=== PATIENT | male | born 1960 | race Caucasian/White ===

== ENCOUNTER 2016-08-26 16:14 | Inpatient (IN) | payer MEDICAID ==
--- NOTE | 2016-08-26 16:51 | ED Physician Chart ---
Chief Complaint/HPI - Patient Information Date Seen:: 08/26/16 Time Seen:: 16:45 Chief Complaint:: PEG tube dislodged History of Present Illness:: location: abdomen quality: PEG tube dislodged severity: moderate duration: one day context: pt with inability to feed himself and swallow due to chronic condition. SNF staff report pts, PEG tube came out some time earlier today, exact time not documented. pt with no complaint, but also with no fluid access as he cannot take po food and fluids. no pain complaint. pt is baseline non verbal, awake, alert. currently is at baseline. mod factors: none assoc s/s: none hx from medic and Dr. Almaraz Allergies:: Allergies Allergy/AdvReac Type Severity Reaction Status Date / Time No Known Allergies Allergy Verified 08/26/16 16:28 Vitals:: Vital Signs - 8 hr 08/26/16 16:14 Temp 97.4 F HR 81 RR 16 BP 96/68 O2 Sat % 96 Historian:: EMS, Other (Dr. Almaraz) Review:: Nurse's Note Reviewed, EMS run form Reviewed Review of Systems - Review of Systems General/Constitutional: No fever, No edema Skin: No rash ENT: No nasal drainage Neck: No stiffness Cardio Vascular: No edema Pulmonary: Cough (intermittent nonproductive cough), No wheezing GI: No vomiting G/U: No hematuria Hematopoietic: No bruising Allergic/Immuno: No angioedema Neurological: No seizure Past Medical History - Past Medical History Past Medical History: PUD/GERD, Thyroid disorder, Other (dementia, unspecified encephalopathy) Family History: None Social History: Non Smoker, No Alcohol, No Drug Use, Single, Care Facility Surgical History: PEG/GTube Psychiatricy History: Other Medication: Reviewed Family Medical History - Family Member Mother History Unknown: Yes Physical Exam - Physical Examination General/Constitutional: Awake, Well-developed, well-nourished, Alert, No distress, Non-toxic appearing, Ambulatory Head: Atraumatic Eyes: Lids, conjuctiva normal, PERRL, EOMI Skin: Nl inspection, No ecchymosis, Well hydrated ENMT: External ears, nose nl, Nasal exam nl, Lips, teeth, gums nl Neck: Nontender, Full ROM w/o pain Respiratory: Nl effort/Exclusion, Clear to Auscultation, No Wheeze/Rhonchi/Rales Cardio Vascular: RRR, No murmur, gallop, rubs, NL S1 S2 GI: No tenderness/rebounding/guarding, Normal BS's (PEG tube site is intact, clean and dry, tube is dislodged), Nondistended : No CVA tenderness Extremities: No tenderness or effusion, Full ROM, normal strength in all extremities, No edema, Normal digits & nails Neuro/Psych: Normal sensory exam, Normal motor strength, No focal deficits Misc: normal gait, Normal back, No paraspinal tenderness ED Septic Shock - . Is Septic Shock (SBP<90, OR Lactate>4 mmol\L) present?: No - <6hrs of presentation: Vital Signs: Vital Signs - 8 hr 08/26/16 16:14 Temp 97.4 F HR 81 RR 16 BP 96/68 O2 Sat % 96 Reassessment (Disposition) - Reassessment Reassessment:: MDM: stable encephalopathy patient with dislodged PEG, need replacement. in meantime will start maintenance IV fluids and admit for procedure tomorrow . ER Course: pt stable while in ER. no acute decompensation. Reassessment Condition:: Unchanged - Diagnosis Diagnosis:: dislodged PEG tube in encephalopathic patient - Patient Disposition Discharge/Transfer:: Acute Care w/in this hosp Admitted to:: Med/Surg Admitting Medical Physician:: Dustin Almaraz Condition at Disposition:: Stable
[2016-08-26 17:20] LABS: % BASOPHILS 2.3 % (0.0-2.0); % EOSINOPHILS 0.6 % (0.0-5.0); % LYMPHOCYTES 14.4 % (20.0-50.0); % MONOCYTES 4.7 % (2.0-10.0); HEMATOCRIT 39.6 % (39.0-49.0); HEMOGLOBIN 13.2 gm/dL (13.2-17.3); MEAN CELL VOLUME 89.1 fl (80-99); MEAN CORPUSCULAR HEMOGLOBIN 29.8 pg (26.0-30.0); MEAN CORPUSCULAR HGB CONC 33.4 pg (28.0-36.0); MEAN PLATELET VOLUME 8.7 fl; NEUTROPHILE ABSOLUTE 5.5 Th/cmm (1.8-8.0); PLATELET COUNT 290 Th/cmm (150-400); RED BLOOD COUNT 4.45 Mil/cmm (4.30-5.70); RED CELL DISTRIBUTION WIDTH 12.2 % (11.5-20.0)
[2016-08-26 17:42] LABS: ALB/GLOB RATIO 0.8 (1.0-1.8); ALKALINE PHOSPHATASE 79 U/L (34-104); ANION GAP 11.2 (7.0-16.0); BILIRUBIN,TOTAL 0.3 mg/dL (0.3-1.0); BUN - UREA NITROGEN 24 mg/dL (7-25); BUN/CREATININE RATIO 26.7; CALCIUM SERUM 9.6 mg/dL (8.6-10.3); CARBON DIOXIDE 29.3 mEq/L (21.0-31.0); CHLORIDE 98 mEq/L (98-107); CREATININE - SERUM 0.9 mg/dL (0.7-1.3); GLUCOSE 91 mg/dL (70-105); POTASSIUM SERUM 3.5 mEq/L (3.5-5.1); SGOT 25 U/L (13-39); SGPT/ALT 22 U/L (7-52); SODIUM SERUM 135 mEq/L (136-145)
[2016-08-26 17:47] LABS: URINE BILIRUBIN NEGATIVE (NEGATIVE); URINE BLOOD SMALL (NEGATIVE); URINE COLOR YELLOW; URINE GLUCOSE (UA) NEGATIVE (NEGATIVE); URINE KETONE NEGATIVE (NEGATIVE)
[2016-08-26 17:48] LABS: URINE PROTEIN TRACE mg/dL (NEGATIVE)
[2016-08-26 17:49] LABS: URINE BACTERIA NONE SEEN /hpf (NONE SEEN); URINE EPITHELIAL CELLS NONE SEEN /lpf (FEW); URINE WBC NONE SEEN /hpf (0-5)
[2016-08-26 17:50] LABS: INR 1.09 (0.5-1.4); PROTHROMBIN TIME (TEST) 10.9 SECONDS (9.5-11.5)
[2016-08-26] MEDS ORDERED: D5-0.9%NS 1,000 ML IV SCH (20:33)
[2016-08-27 04:49] VITALS: BP 93/63
--- NOTE | 2016-08-27 08:35 | General Progress Note ---
Subjective - Review of Systems Service Date: 08/27/16 Subjective: Patient non verbal Objective - Results Result Diagrams: 08/26/16 17:00 08/26/16 17:00 Recent Labs: Laboratory Last Values WBC 7.0 Th/cmm (4.8-10.8) 08/26/16 17:00 RBC 4.45 Mil/cmm (4.30-5.70) 08/26/16 17:00 Hgb 13.2 gm/dL (13.2-17.3) 08/26/16 17:00 Hct 39.6 % (39.0-49.0) 08/26/16 17:00 MCV 89.1 fl (80-99) 08/26/16 17:00 MCH 29.8 pg (26.0-30.0) 08/26/16 17:00 MCHC Differential 33.4 pg (28.0-36.0) 08/26/16 17:00 RDW 12.2 % (11.5-20.0) 08/26/16 17:00 Plt Count 290 Th/cmm (150-400) 08/26/16 17:00 MPV 8.7 fl 08/26/16 17:00 Neutrophils % 78.0 % (40.0-80.0) 08/26/16 17:00 Lymphocytes % 14.4 % (20.0-50.0) L 08/26/16 17:00 Monocytes % 4.7 % (2.0-10.0) 08/26/16 17:00 Eosinophils % 0.6 % (0.0-5.0) 08/26/16 17: Basophils % 2.3 % (0.0-2.0) H 08/26/16 17:00 PT 10.9 SECONDS (9.5-11.5) 08/26/16 17:00 INR 1.09 (0.5-1.4) 08/26/16 17:00 Sodium 135 mEq/L (136-145) L 08/26/16 17:00 Potassium 3.5 mEq/L (3.5-5.1) 08/26/16 17:00 Chloride 98 mEq/L (98-107) 08/26/16 17:00 Carbon Dioxide 29.3 mEq/L (21.0-31.0) 08/26/16 17:00 Anion Gap 11.2 (7.0-16.0) 08/26/16 17:00 BUN 24 mg/dL (7-25) 08/26/16 17:00 Creatinine 0.9 mg/dL (0.7-1.3) 08/26/16 17:00 Est GFR ( Amer) > 60.0 ml/min 08/26/16 17:00 Est GFR (Non-Af Amer) > 60.0 ml/min 08/26/16 17:00 BUN/Creatinine Ratio 26.7 08/26/16 17:00 Glucose 91 mg/dL (70-105) 08/26/16 17:00 Calcium 9.6 mg/dL (8.6-10.3) 08/26/16 17:00 Total Bilirubin 0.3 mg/dL (0.3-1.0) 08/26/16 17:00 AST 25 U/L (13-39) 08/26/16 17:00 ALT 22 U/L (7-52) 08/26/16 17:00 Alkaline Phosphatase 79 U/L (34-104) 08/26/16 17:00 Total Protein 8.3 gm/dL (6.0-8.3) 08/26/16 17:00 Albumin 3.8 gm/dL (4.2-5.5) L 08/26/16 17:00 Globulin 4.5 gm/dL 08/26/16 17:00 Albumin/Globulin Ratio 0.8 (1.0-1.8) L 08/26/16 17:00 Urine Source CLEAN C 08/26/16 17:32 Urine Color YELLOW 08/26/16 17:32 Urine Clarity CLEAR (CLEAR) 08/26/16 17:32 Urine pH 7.0 08/26/16 17:32 Ur Specific [place] 1.020 (1.005-1.030) 08/26/16 17:32 Urine Protein TRACE mg/dL (NEGATIVE) 08/26/16 17:32 Urine Glucose (UA) NEGATIVE mg/dL (NEGATIVE) 08/26/16 17:32 Urine Ketones NEGATIVE mg/dL (NEGATIVE) 08/26/16 17:32 Urine Blood SMALL (NEGATIVE) H 08/26/16 17:32 Urine Nitrate NEGATIVE (NEGATIVE) 01/17/17 17:32 Urine Bilirubin NEGATIVE (NEGATIVE) 08/26/16 17:32 Urine Urobilinogen 2.0 E.U./dL (0.2 - 1.0) 08/26/16 17:32 Ur Leukocyte Esterase NEGATIVE (NEGATIVE) 08/26/16 17:32 Urine RBC 5-10 /hpf (0-5) H 08/26/16 17:32 Urine WBC NONE SEEN /hpf (0-5) 08/26/16 17:32 Ur Epithelial Cells NONE SEEN /lpf (FEW) 08/26/16 17:32 Urine Bacteria NONE SEEN /hpf (NONE SEEN) 08/26/16 17:32 - Physical Exam Vitals and I&O: Vital Signs Temp 98.6 F 08/27/16 04:00 Pulse 75 08/27/16 04:00 Resp 19 08/27/16 04:00 BP 93/63 08/27/16 04:49 Pulse Ox 96 08/27/16 04:00 Active Medications: Current Medications Acetaminophen (Tylenol) 650 mg GT Q4HR PRN PRN Reason: mild pain or temp >100 Stop: 10/25/16 20:28 Bisacodyl (Dulcolax 10 Mg Supp) 10 mg RC DAILY PRN PRN Reason: Constipation Stop: 10/25/16 20:28 Dextrose/Sodium Chloride (D5-0.9%Ns) 1,000 mls @ 75 mls/hr IV .[id number] [facility] Stop: 10/25/16 20:32 Last Admin: 08/27/16 01:44 Dose: 75 mls/hr Levetiracetam (Keppra) 500 mg PO Q12HR [facility] Stop: 10/25/16 20:59 Last Admin: 08/27/16 01:45 Dose: Not Given Levothyroxine Sodium (Synthroid) 0.0125 mg GT QDAC [facility] Stop: 10/26/16 07:29 Metoclopramide HCl (Reglan) 5 mg GT Q12HR [facility] Stop: 10/25/16 20:59 Last Admin: 08/27/16 01:49 Dose: Not Given Pantoprazole Sodium (Protonix) 40 mg GT DAILY [facility] Stop: 10/26/16 08:59 General: Alert, Other (Confused) HEENT: Atraumatic Neck: Supple Cardiovascular: Regular rate Lungs: Clear to auscultation Abdomen: Bowel sounds, Soft, Other (Open wound where oeg was placed) Extremities: Other (No edema) Neurological: Other (Non ambulatoty) Skin: Other (Warm and dry) Psych/Mental Status: Other (Confused, not oriented) Assessment/Plan - Assessment Assessment: Patient is awake, calm, confused. Dx: PEG disloged, Hypothyroidism, Schizophrenia, MR, Dysphagia - Plan Plan: PEG will be replace today. He will continue with SNF meds.
[2016-08-27 09:04] LABS: % BASOPHILS 0.7 % (0.0-2.0); % EOSINOPHILS 0.6 % (0.0-5.0); % LYMPHOCYTES 27.6 % (20.0-50.0); % MONOCYTES 5.8 % (2.0-10.0); % NEUTROPHILS 65.3 % (40.0-80.0); HEMATOCRIT 40.5 % (39.0-49.0); MEAN CELL VOLUME 88.4 fl (80-99); MEAN CORPUSCULAR HEMOGLOBIN 30.6 pg (26.0-30.0); MEAN CORPUSCULAR HGB CONC 34.6 pg (28.0-36.0); MEAN PLATELET VOLUME 9.3 fl; NEUTROPHILE ABSOLUTE 5.1 Th/cmm (1.8-8.0); PLATELET COUNT 280 Th/cmm (150-400); RED BLOOD COUNT 4.59 Mil/cmm (4.30-5.70); RED CELL DISTRIBUTION WIDTH 12.6 % (11.5-20.0); WHITE BLOOD COUNT 7.7 Th/cmm (4.8-10.8)
[2016-08-27 09:09] LABS: ALB/GLOB RATIO 0.9 (1.0-1.8); ALKALINE PHOSPHATASE 90 U/L (34-104); ANION GAP 9.4 (7.0-16.0); BILIRUBIN,TOTAL 0.5 mg/dL (0.3-1.0); BUN - UREA NITROGEN 21 mg/dL (7-25); BUN/CREATININE RATIO 23.3; CALCIUM SERUM 10.3 mg/dL (8.6-10.3); CARBON DIOXIDE 29.4 mEq/L (21.0-31.0); CHLORIDE 99 mEq/L (98-107); CREATININE - SERUM 0.9 mg/dL (0.7-1.3); GLUCOSE 99 mg/dL (70-105); POTASSIUM SERUM 3.8 mEq/L (3.5-5.1); SGOT 23 U/L (13-39); SGPT/ALT 23 U/L (7-52); SODIUM SERUM 134 mEq/L (136-145)
[2016-08-27] MEDS: Pantoprazole 40 mg/Packet GT SCH (09:25)
[2016-08-27] MEDS: Levothyroxine 0.125 Mg Tab GT SCH (09:25)
--- NOTE | 2016-08-27 09:52 | Diagnostic Imaging Report ---
CHEST X-RAY: AP view INDICATION: Shortness of breath COMPARISON: None FINDINGS: Chronic changes are seen with no focal consolidation pleural effusions. Multiple old left rib fractures are noted. Heart size is normal. IMPRESSION: Chronic lung changes with no focal consolidation identified. No evidence of pneumothorax. Multiple old left rib fractures.
--- NOTE | 2016-08-27 10:55 | Diagnostic Imaging Report ---
Upper GI with Gastrografin HISTORY: G-tube confirmation COMPARISON: None FINDINGS: Solution Professional view demonstrates moderate stool throughout the colon. A percutaneous feeding tube is noted. The second image demonstrates contrast opacification of the stomach. IMPRESSION: Intraluminal confirmation of patient's percutaneous gastric feeding tube.
--- NOTE | 2016-08-27 11:27 | History & Physical ---
CHIEF COMPLAINT: PEG tube dislodged. HISTORY OF PRESENT ILLNESS: This is the case of a 56-year-old white male who I [facility]. I received a call from the [facility] stating the patient pulled out his G-tube, reason why patient was sent to Emergency Room to try to put back the PEG tube. PAST MEDICAL HISTORY: The patient has past medical history of hypothyroidism, schizophrenia, mental retardation, dysphagia and general muscle weakness when unstable gait. SOCIAL HISTORY: The patient is a permanent resident of a [facility]. FAMILY HISTORY: Unremarkable. ALLERGIES: No known allergies. PAST SURGICAL HISTORY: PEG replacement. REVIEW OF SYSTEMS: Information was not obtained secondary to the patient's mental condition. PHYSICAL EXAMINATION: GENERAL: Does reveal a fairly nourished and developed white male, awake, alert, confused, not following verbal commands. HEENT: Head is normocephalic and atraumatic. Eyes: Pupils reactive to light. Fundus not examined at this time. Nose: No evidence of nasal obstruction. Ears: No evidence of any discharge. Mouth: Fairly ____. LUNGS: Bilateral air entry. No wheezing. No crackles. HEART: Regular rhythm. ABDOMEN: Soft, nontender. Bowel sounds present. There is a scar where PEG tube was pulled up. The incision is closing up. EXTREMITIES: Limited movement of all extremities. The patient is bed bound. NEUROLOGICAL: The patient is awake, alert, confused, not oriented. Neurological examination was not completed secondary to the patient's mental condition. IMPRESSION: 1. PEG dislodged. 2. Hypothyroidism. 3. Schizophrenia. 4. Mental retardation. 5. Dysphagia. PLAN: 1. The patient will be admitted in the medical surgical floor. 2. Continue with [facility] medications. 3. Consult with GI. 4. IV D5 normal saline. 5. CBC and CMP at a.m. JOB# [id number]
[2016-08-27] MEDS ORDERED: Diatrizoate Meglumine/Diatri 30 mL Sol PO ONE (13:11)
--- NOTE | 2016-08-27 14:53 | Operative Report ---
INPATIENT GASTROINTESTINAL PROCEDURE NOTE NAME OF PROCEDURE: G-tube change. REFERRING PHYSICIAN: Dr. Almaraz. REASON FOR PROCEDURE: Malfunctioning G-tube, dysphagia. PREOPERATIVE DIAGNOSES: Malfunctioning G-tube, dysphagia. POSTOPERATIVE DIAGNOSIS: New 20-Lithuanian gastrostomy tube placed. DESCRIPTION OF PROCEDURE: The patient was placed on his back. The old G-tube site was identified and had a Mc tube in place. The balloon was not inflated. The Mc tube was then removed by pulling it out. A new 20-Lithuanian gastrostomy tube was lubricated and inserted through the gastrocutaneous fistula. Internal balloon was inflated with 20 mL of sterile saline. Outer flange was secured in position. Procedure was then completed. COMPLICATIONS: None. FINDINGS: New 20-Lithuanian gastrostomy tube placed. RECOMMENDATIONS: 1. KUB with Gastrografin to confirm placement. 2. If it is in stomach, may begin using it. 3. Place an abdominal binder to protect the G-tube. Thank you for allowing me to participate. Please call me if you have any questions. JOB# [id number]
--- NOTE | 2016-08-27 22:03 | Consultation ---
INPATIENT GASTROINTESTINAL CONSULTATION REFERRING PHYSICIAN: Dustin Almaraz M.D. REASON FOR CONSULTATION: Malfunctioning G-tube. HISTORY OF PRESENT ILLNESS: A 56-year-old male who came from into the hospital with apparently a G-tube that had come out. The patient is otherwise a poor historian, unable to give any meaningful history. PAST MEDICAL HISTORY: Thyroid disease, dementia, peptic ulcer disease, GERD, dysphagia. PAST SURGICAL HISTORY: PEG tube placement. FAMILY HISTORY: Noncontributory. SOCIAL HISTORY: Resident of a care facility. ALLERGIES: None. CURRENT MEDICATIONS: Tylenol, Dulcolax, Keppra, Synthroid, Reglan, Protonix. REVIEW OF SYSTEMS: Unobtainable. PHYSICAL EXAMINATION: VITAL SIGNS: Temperature 98.6, breathing 19, pulse of 75, blood pressure 93/63, satting 96%. GENERAL: In no apparent distress. EYES: Anicteric, normal conjunctivae. HEENT: Normocephalic, atraumatic. Moist mucous membranes. NECK: Soft, supple. CHEST: Clear, normal effort. CARDIOVASCULAR: Regular rate and rhythm. ABDOMEN: Soft, nontender, nondistended. SKIN: Warm, dry. EXTREMITIES: Reveal no cyanosis. LABORATORY DATA: White count 7.7, hemoglobin 14, platelets of 280. IMPRESSION: This is a 56-year-old male with a gastrostomy tube that had fallen out. The patient has a malfunctioning gastrostomy tube and underlying dysphagia. We will need to have it replaced. PLAN: G-tube to be replaced at bedside. Thank you for allowing me to participate. Please call me if you have any questions. JOB# [id number]
[2016-08-28] MEDS: Levothyroxine 0.125 Mg Tab GT SCH (06:47)
[2016-08-28 07:32] LABS: % BASOPHILS 0.5 % (0.0-2.0); % LYMPHOCYTES 40.3 % (20.0-50.0); % MONOCYTES 6.5 % (2.0-10.0); % NEUTROPHILS 50.7 % (40.0-80.0); HEMATOCRIT 37.6 % (39.0-49.0); HEMOGLOBIN 12.4 gm/dL (13.2-17.3); MEAN CELL VOLUME 89.3 fl (80-99); MEAN CORPUSCULAR HEMOGLOBIN 29.5 pg (26.0-30.0); MEAN PLATELET VOLUME 8.7 fl; NEUTROPHILE ABSOLUTE 2.3 Th/cmm (1.8-8.0); PLATELET COUNT 277 Th/cmm (150-400); RED BLOOD COUNT 4.21 Mil/cmm (4.30-5.70); RED CELL DISTRIBUTION WIDTH 12.5 % (11.5-20.0)
[2016-08-28 07:51] LABS: ALB/GLOB RATIO 0.9 (1.0-1.8); ALKALINE PHOSPHATASE 73 U/L (34-104); ANION GAP 7.5 (7.0-16.0); BILIRUBIN,TOTAL 0.3 mg/dL (0.3-1.0); BUN - UREA NITROGEN 20 mg/dL (7-25); CALCIUM SERUM 9.4 mg/dL (8.6-10.3); CARBON DIOXIDE 30.1 mEq/L (21.0-31.0); CHLORIDE 104 mEq/L (98-107); CREATININE - SERUM 0.8 mg/dL (0.7-1.3); GLUCOSE 95 mg/dL (70-105); POTASSIUM SERUM 3.6 mEq/L (3.5-5.1); SGOT 23 U/L (13-39); SGPT/ALT 20 U/L (7-52); SODIUM SERUM 138 mEq/L (136-145)
--- NOTE | 2016-08-28 07:54 | General Progress Note ---
Subjective - Review of Systems Service Date: 08/28/16 Subjective: Patient non verbal Objective - Results Result Diagrams: 08/27/16 08:18 08/27/16 08:18 Recent Labs: Laboratory Last Values WBC 7.7 Th/cmm (4.8-10.8) 08/27/16 08:18 RBC 4.59 Mil/cmm (4.30-5.70) 08/27/16 08:18 Hgb 14.0 gm/dL (13.2-17.3) 08/27/16 08:18 Hct 40.5 % (39.0-49.0) 08/27/16 08:18 MCV 88.4 fl (80-99) 08/27/16 08:18 MCH 30.6 pg (26.0-30.0) H 08/27/16 08:18 MCHC Differential 34.6 pg (28.0-36.0) 08/27/16 08:18 RDW 12.6 % (11.5-20.0) 08/27/16 08:18 Plt Count 280 Th/cmm (150-400) 08/27/16 08:18 MPV 9.3 fl 08/27/16 08:18 Neutrophils % 65.3 % (40.0-80.0) 08/27/16 08:18 Lymphocytes % 27.6 % (20.0-50.0) 08/27/16 08:18 Monocytes % 5.8 % (2.0-10.0) 08/27/16 08:18 Eosinophils % 0.6 % (0.0-5.0) 08/27/16 08:18 Basophils % 0.7 % (0.0-2.0) 08/27/16 08:18 PT 10.9 SECONDS (9.5-11.5) 08/26/16 17:00 INR 1.09 (0.5-1.4) 08/26/16 17:00 Sodium 134 mEq/L (136-145) L 08/27/16 08:18 Potassium 3.8 mEq/L (3.5-5.1) 08/27/16 08:18 Chloride 99 mEq/L (98-107) 08/27/16 08:18 Carbon Dioxide 29.4 mEq/L (21.0-31.0) 08/27/16 08:18 Anion Gap 9.4 (7.0-16.0) 08/27/16 08:18 BUN 21 mg/dL (7-25) 08/27/16 08:18 Creatinine 0.9 mg/dL (0.7-1.3) 08/27/16 08:18 Est GFR ( Amer) > 60.0 ml/min 08/27/16 08:18 Est GFR (Non-Af Amer) > 60.0 ml/min 08/27/16 08:18 BUN/Creatinine Ratio 23.3 08/27/16 08:18 Glucose 99 mg/dL (70-105) 08/27/16 08:18 Calcium 10.3 mg/dL (8.6-10.3) 08/27/16 08:18 Total Bilirubin 0.5 mg/dL (0.3-1.0) 08/27/16 08:18 AST 23 U/L (13-39) 08/27/16 08:18 ALT 23 U/L (7-52) 08/27/16 08:18 Alkaline Phosphatase 90 U/L (34-104) 08/27/16 08:18 Total Protein 9.0 gm/dL (6.0-8.3) H 08/27/16 08:18 Albumin 4.2 gm/dL (4.2-5.5) 08/27/16 08:18 Globulin 4.8 gm/dL 08/27/16 08:18 Albumin/Globulin Ratio 0.9 (1.0-1.8) L 08/27/16 08:18 TSH 2.67 uIU/ml (0.34-5.60) 08/27/16 08:18 Urine Source CLEAN C 08/26/16 17:32 Urine Color YELLOW 08/26/16 17:32 Urine Clarity CLEAR (CLEAR) 08/26/16 17:32 Urine pH 7.0 08/26/16 17:32 Ur Specific [place] 1.020 (1.005-1.030) 08/26/16 17:32 Urine Protein TRACE mg/dL (NEGATIVE) 08/26/16 17:32 Urine Glucose (UA) NEGATIVE mg/dL (NEGATIVE) 08/26/16 17:32 Urine Ketones NEGATIVE mg/dL (NEGATIVE) 08/26/16 17:32 Urine Blood SMALL (NEGATIVE) H 08/26/16 17:32 Urine Nitrate NEGATIVE (NEGATIVE) 08/26/16 17:32 Urine Bilirubin NEGATIVE (NEGATIVE) 08/26/16 17:32 Urine Urobilinogen 2.0 E.U./dL (0.2 - 1.0) 08/26/16 17:32 Ur Leukocyte Esterase NEGATIVE (NEGATIVE) 08/26/16 17:32 Urine RBC 5-10 /hpf (0-5) H 08/26/16 17:32 Urine WBC NONE SEEN /hpf (0-5) 08/26/16 17:32 Ur Epithelial Cells NONE SEEN /lpf (FEW) 08/26/16 17:32 Urine Bacteria NONE SEEN /hpf (NONE SEEN) 08/26/16 17:32 - Physical Exam Vitals and I&O: Vital Signs Temp 97.7 F 08/28/16 04:00 Pulse 56 08/28/16 04:00 Resp 19 08/28/16 04:00 BP 90/61 08/28/16 04:00 Pulse Ox 98 08/28/16 04:00 Intake & Output 08/27/16 08/28/16 08/28/16 18:59 06:59 18:59 Intake Total 380 Balance 380 Intake: Tube Feeding 280 Other 100 Other: # Voids 4 Active Medications: Current Medications Acetaminophen (Tylenol) 650 mg GT Q4HR PRN PRN Reason: mild pain or temp >100 Stop: 10/25/16 20:28 Bisacodyl (Dulcolax 10 Mg Supp) 10 mg RC DAILY PRN PRN Reason: Constipation Stop: 10/25/16 20:28 Dextrose/Sodium Chloride (D5-0.9%Ns) 1,000 mls @ 75 mls/hr IV .[id number] [facility] Stop: 10/25/16 20:32 Last Admin: 08/27/16 01:44 Dose: 75 mls/hr Levetiracetam (Keppra) 500 mg PO Q12HR [facility] Stop: 10/25/16 20:59 Last Admin: 08/27/16 21:54 Dose: 500 mg Levothyroxine Sodium (Synthroid) 0.0125 mg GT QDAC [facility] Stop: 10/26/16 07:29 Last Admin: 08/28/16 06:47 Dose: 0.0125 mg Metoclopramide HCl (Reglan) 5 mg GT Q12HR [facility] Stop: 10/25/16 20:59 Last Admin: 08/27/16 21:54 Dose: 5 mg Pantoprazole Sodium (Protonix) 40 mg GT DAILY [facility] Stop: 10/26/16 08:59 Last Admin: 08/27/16 09:25 Dose: Not Given General: Alert, Other (Confused) HEENT: Atraumatic Neck: Supple Cardiovascular: Regular rate Lungs: Clear to auscultation Abdomen: Bowel sounds, Soft, Other (PEG in place) Neurological: Normal gait Skin: Other (Warm and dry) Psych/Mental Status: Other (Confused) - Procedures Procedures: Procedures Procedure Code Date CHANGE FEEDING DEVICE IN UP INTEST TRACT, REWORKER APPROACH [id number] 08/26/16 CHANGE GASTROSTOMY TUBE 23440 08/26/16 Assessment/Plan - Assessment Assessment: Patient is awake, calm, confused. Dx: PEG disloged, Hypothyroidism, Schizophrenia, MR, Dysphagia - Plan Plan: PEG was replace. Patient will be discharge
[2016-08-28 08:05] LABS: WHITE BLOOD COUNT 4.5 Th/cmm (4.8-10.8)
[2016-08-28] MEDS: Pantoprazole 40 mg/Packet GT SCH (09:19)
--- NOTE | 2016-08-28 18:30 | Discharge Summary ---
CHIEF COMPLAINT: PEG tube dislodged. HISTORY OF PRESENT ILLNESS: This is the case of a 56-year-old white male who was sent from alf to ER secondary to the patient pulled out his PEG tube. HOSPITAL COURSE AND TREATMENT: Then, this patient was admitted in the Medical Surgical Floor. He was started on IV normal saline. He was continued with alf medications and consult with GI was done. The following day of the admission, the patient's PEG tube was replaced and it is functioning well, reason why the decision to discharge the patient to alf was done. At the moment of the discharge, the patient was awake, alert, confused, not oriented with PEG functioning well. INSIDE SALES DIRECTOR IN THIS CASE: Dr. Ramu Park, GI. DISPOSITION: The patient is sent back to alf to continue treatment with primary care physician. DIAGNOSES: 1. Percutaneous endoscopic gastrostomy tube dislodged. 2. Hypothyroidism. 3. Schizophrenia. 4. Mental retardation. 5. Dysphagia. JOB# [id number]
== END 2016-08-28 12:30 | DRG 252 ==
LOC: ER 16:14 → MSI 18:39
PROVIDERS: ADMIT General Practice; ATTEND General Practice
PROC: 0D20XUZ Change Feeding Device in Upper Intestinal Tract, External Approach (ICD-10-PCS; principal; 2016-08-26)
DX: K94.23 Gastrostomy malfunction (principal); G93.40 Encephalopathy, unspecified; R13.10 Dysphagia, unspecified; F20.9 Schizophrenia, unspecified; E03.9 Hypothyroidism, unspecified; F79 Unspecified intellectual disabilities; K21.9 Gastro-esophageal reflux disease without esophagitis; Y84.8 Other medical procedures as the cause of abnormal reaction of the patient, or of later complication, without mention of misadventure at the time of the procedure; I34.0 Nonrheumatic mitral (valve) insufficiency
CPT/HCPCS: 36415-UA; 71010-TC; 80053-TC; 81001-TC; 84443-TC; 85025-TC; 85610-TC; 93005; J2060; J7042; Z7610

== ENCOUNTER 2019-02-23 12:47 | Inpatient (IN) | payer MEDICAID ==
[2019-02-23] MEDS ORDERED: Sodium Chloride 0.9% 1,000 ML IV ONE (12:53)
--- NOTE | 2019-02-23 12:58 | ED Physician Chart ---
ED Chief Complaint/HPI - Patient Information Date Seen:: 02/23/19 Time Seen:: 12:45 Chief Complaint:: G-Tube Dysfunction History of Present Illness:: onset x 6 hours of g-tube dysfunction; no report of trauma, H/As, neck pain, C/P , SOB, Abd. Pain, A/N/V/D/C, fever, chills, bleeding, or urinary s/s Allergies:: Allergies Allergy/AdvReac Type Severity Reaction Status Date / Time No Known Allergies Allergy Verified 02/23/19 12:52 Historian:: Patient, EMS Review:: Nurse's Note Reviewed, Old Chart Reviewed, EMS run form Reviewed ED Review of Systems - Review of Systems General/Constitutional: No fever, No chills, No weight loss, No weakness, No diaphoresis, No edema, No loss of appetite Skin: No skin lesions, No rash, No bruising Head: No headache, No light-headedness Eyes: No loss of vision, No pain, No diplopia ENT: No earache, No nasal drainage, No sore throat, No tinnitus Neck: No neck pain, No swelling, No thyromegaly, No stiffness, No mass noted Cardio Vascular: No chest pain, No palpitations, No PND, No orthopnea, No edema Pulmonary: No SOB, No cough, No sputum, No wheezing GI: Nausea, Vomiting, Diarrhea, No pain, No melena, No hematochezia, No constipation, No hematemesis G/U: No dysuria, No frequency, No hematuria Musculoskeletal: No bone or joint pain, No back pain, No muscle pain Endocrine: No polyuria, No polydipsia Psychiatric: No prior psych history, No depression, No anxiety, No suicidal ideation, No homicidal ideation, No auditory hallucination, No visual hallucination Hematopoietic: No bruising, No lymphadenopathy Allergic/Immuno: No urticaria, No angioedema Neurological: No syncope, No focal symptoms, No weakness, No paresthesia, No headache, No seizure, No dizziness, Confusion, No vertigo ED Past Medical History - Past Medical History Obtainable: Yes Past Medical History: HTN, PUD/GERD, Thyroid disorder, Dementia Family History: HTN Social History: Non Smoker, No Alcohol, No Drug Use, Single, Care Facility Surgical History: PEG/GTube Psychiatricy History: Dementia Medication: Reviewed Family Medical History - Family Member Mother History Unknown: Yes Ethnicity: Non- Living Status: Still Living Hx Family Cancer: No Hx Family Coronary Artery Disease: No Hx Family Congestive Heart Failure: No Hx Family Hypertension: No Hx Family Stroke: No Hx Family Diabetes: No Hx Family Seizures: No Hx Family Dementia: No Hx Family AIDS: No Hx Family HIV: No Hx Family COPD: No Hx Family Hepatitis: No Hx Family Psychiatric Problems: No Hx Family Tuberculosis: No ED Physical Exam - Physical Examination General/Constitutional: Awake, Well-developed, well-nourished, Alert, No distress, GCS 15, Non-toxic appearing, Ambulatory Head: Atraumatic Eyes: Lids, conjuctiva normal, PERRL, EOMI Skin: Nl inspection, No rash, No skin lesions, No ecchymosis, Well hydrated, No lymphadenopathy ENMT: External ears, nose nl, TM canals nl, Nasal exam nl, Lips, teeth, gums nl , Oropharynx nl, Tonsils nl Neck: Nontender, Full ROM w/o pain, No JVD, No nuchal rigidity, No bruit, No mass, No stridor Respiratory: Nl effort/Exclusion, Clear to Auscultation, No Wheeze/Rhonchi/Rales Cardio Vascular: RRR, No murmur, gallop, rubs, NL S1 S2, Carotid/Femoral/Distal pulses equal bilaterally GI: No tenderness/rebounding/guarding, No organomegaly, No hernia, Normal BS's, Nondistended, No mass/bruits, No McBurney tenderness Other GI comments:: + G-Tube Dysfunction : No CVA tenderness Extremities: No tenderness or effusion, Full ROM, normal strength in all extremities, No edema, Normal digits & nails Neuro/Psych: Alert/oriented, DTR's symmetric, Normal sensory exam, Normal motor strength, Judgement/insight normal, Mood normal, Normal gait, No focal deficits Misc: Normal back, No paraspinal tenderness ED Labs/Radiology/EKG Results - Lab Results Comments:: Reviewed - Radiology Results Comments:: + Portion of G-Tube Foreign Body in the Stomach ED Septic Shock - . Is Septic Shock (SBP<90, OR Lactate>4 mmol\L) present?: No ED Reassessment (Disposition) - Reassessment Reassessment Condition:: Improved - Diagnosis Diagnosis:: G-Tube Dysfunction; Hyponatremia; Hypoalbuminemia; G-Tube Foreign Body in Stomach - Aftercare/Follow up Instructions Aftercare/Follow-Up Instructions:: Counseled pt regarding lab results/diagnosis & need follow up, Counseled pt & family regarding lab results/diagnosis & need follow up - Patient Disposition Discharge/Transfer:: Acute Care w/in this hosp Accepting Physician:: Dr. Almaraz Time Called:: 1400 Time Responded:: 14:00 Admitted to:: Med/Surg Spoke to:: Dr. Almaraz Admitting Medical Physician:: Dr. Almaraz Condition at Disposition:: Stable, Improved
[2019-02-23 13:15] LABS: % BASOPHILS 0.8 % (0.0-2.0); % EOSINOPHILS 1.8 % (0.0-5.0); % MONOCYTES 4.5 % (2.0-10.0); % NEUTROPHILS 77.9 % (40.0-80.0); BASOPHILE ABSOLUTE 0.1 Th/cumm (0-0.2); EOSINOPHILE ABSOLUTE 0.2 Th/cmm (0.1-0.4); HEMATOCRIT 44.5 % (41.0-60); HEMOGLOBIN 14.6 gm/dL (12-16); LYMPHOCYTE ABSOLUTE 1.4 Th/cmm (1.5-3.0); MEAN CELL VOLUME 88.3 fl (80-99); MEAN CORPUSCULAR HEMOGLOBIN 28.9 pg (26.0-30.0); MEAN CORPUSCULAR HGB CONC 32.8 pg (28.0-36.0); MONOCYTE ABSOLUTE 0.4 Th/cmm (0.3-1.0); NEUTROPHILE ABSOLUTE 6.9 Th/cmm (1.8-8.0); PLATELET COUNT 282 Th/cmm (150-400); RED BLOOD COUNT 5.04 Mil/cmm (4.30-5.70); RED CELL DISTRIBUTION WIDTH 12.9 % (11.5-20.0)
[2019-02-23 13:32] LABS: ALB/GLOB RATIO 1.2 (1.0-1.8); ALBUMIN 4.1 gm/dL (4.2-5.5); ALKALINE PHOSPHATASE 71 U/L (34-104); AMYLASE SERUM 48 U/L (29-103); ANION GAP 12.2 (7.0-16.0); BILIRUBIN,TOTAL 0.3 mg/dL (0.3-1.0); BUN - UREA NITROGEN 17 mg/dL (7-25); CALCIUM SERUM 9.5 mg/dL (8.6-10.3); CARBON DIOXIDE 25.3 mEq/L (21.0-31.0); CHLORIDE 99 mEq/L (98-107); CREATININE - SERUM 0.7 mg/dL (0.7-1.3); GFR AFRICAN-AMERICAN > 60.0 ml/min (>90); GFR NON AFRICAN-AMERICAN > 60.0 ml/min; GLUCOSE 102 mg/dL (70-105); LIPASE 19 U/L (11-82); POTASSIUM SERUM 4.5 mEq/L (3.5-5.1); SGOT 16 U/L (13-39); SGPT/ALT 17 U/L (7-52); SODIUM SERUM 132 mEq/L (136-145); TOTAL PROTEIN,SERUM 7.4 gm/dL (6.0-8.3)
--- NOTE | 2019-02-23 14:29 | Diagnostic Imaging Report ---
CT abdomen and pelvis without intravenous contrast Indication: G-tube dysfunction,, foreign body Comparison: None, Technique: Axial images were obtained from the lung bases to the bilateral proximal femurs without IV contrast. Coronal reconstructions were made. total DLP: 468, CTDI8.3 FINDINGS: Hypoventilatory changes of the lungs are noted with bibasal consolidative changes. Exam is limited due to motion and body habitus. Assessment of the solid organs also limited due to lack of IV contrast. There is a moderate-sized hiatal hernia. No focal hepatic, splenic lesions. Pancreas Atrophy is seen with no focal lesions. No focal adrenal lesions. Punctate nonobstructive bilateral renal stones are noted measuring up to 3 mm. There is urinary bladder wall thickening evidence small stones seen along the dependent aspects the largest on the right side measuring up to 5 mm. There is copious amount of stool throughout the colon. No evidence of appendicitis. There is visualization of a portion of patient's G-tube in the stomach. No free fluid or free air. Degenerative changes spine are noted with scoliosis. Chronic bilateral femoral neck fractures are seen with marked displacement on the right side. IMPRESSION: Portion of patient's G-tube foreign body is seen within the stomach. The remaining portion extending to the percutaneous aspect is not seen. This may have been due to prior dislodgment. GI or surgical consultation is recommended if there is need for removal. Moderate sized hiatal hernia. Copious stool noted. Nonobstructive bilateral renal calculi Small urinary bladder stones. Urinary bladder wall thickening which related to chronic inflammatory process. Bibasilar passive atelectatic and consolidated changes Chronic bilateral femoral neck fractures. Results were dedicated to the ER following exam.
[2019-02-23] MEDS: D5-0.9%NS 1,000 ML IV SCH (16:30)
[2019-02-24] MEDS: D5-0.9%NS 1,000 ML IV SCH ×2 (07:31→18:17)
--- NOTE | 2019-02-24 09:04 | History and Physical ---
History of Present Illness - HPI Chief Complaint: G-tube broke HPI: Doctor tryed to change G-Tube and it broke and part stayed in the stomach, reason why he was send to ER. Vital Signs: Last Vital Signs Temp 97.9 F 02/24/19 08:00 Pulse 68 02/24/19 08:00 Resp 18 02/24/19 08:00 BP 104/69 02/24/19 08:00 Pulse Ox 97 02/24/19 08:00 Past Medical History Cardiovascular: Report: CAD, HTN Pulmonary: Report: No Pertinent Hx [employer]: Report: Dementia GI: Report: GERD Psych: Report: Psychosis Musculoskeletal: Report: Muscle Atrophy Rheumatologic: Report: No pertinent Hx Infectious Disease: Report: No Pertinent Hx Renal/: Report: No Pertinent Hx Endocrine: Report: Hypothyroidism Dermatology: Report: No Pertinent Hx - Past Surgical History Past Surgical History: No pertinent Hx Family Medical History - Family Member Mother History Unknown: Yes Ethnicity: Non- Living Status: Still Living Hx Family Cancer: No Hx Family Coronary Artery Disease: No Hx Family Congestive Heart Failure: No Hx Family Hypertension: No Hx Family Stroke: No Hx Family Diabetes: No Hx Family Seizures: No Hx Family Dementia: No Hx Family AIDS: No Hx Family HIV: No Hx Family COPD: No Hx Family Hepatitis: No Hx Family Psychiatric Problems: No Hx Family Tuberculosis: No Social History Smoke: No Alcohol: None Drugs: None Lives: Care Home Domestic Violence: Negative - Medications Home Medications: Home Medication Medication Instructions Recorded Type Acetaminophen [Tylenol] 650 mg GT Q4HR PRN 08/26/16 History Bisacodyl [Dulcolax 10 Mg Supp] 10 mg RC DAILY PRN 08/26/16 History Levetiracetam 500 mg GT Q12H 08/26/16 History Levothyroxine [Synthroid] 100 mcg GT QDAC 08/26/16 History Metoclopramide [Reglan] 5 mg GT Q12H 08/26/16 History Pantoprazole [Protonix] 40 mg GT DAILY 08/26/16 History Zonisamide 100 mg GT DAILY 08/26/16 History Famotidine [Pepcid] 20 mg GT DAILY 02/23/19 History Ferrous Sulfate [Ferosul] 330 mg GT TID 02/23/19 History - Allergies Allergies/Adverse Reactions: Allergies Allergy/AdvReac Type Severity Reaction Status Date / Time No Known Allergies Allergy Verified 02/23/19 12:52 Review of Systems - Review of Systems Constitutional: Report: No Significant Eyes: Report: No Significant ENT: Report: No Significant Respiratory: Report: No Significant Cardiovascular: Report: No Significant Gastrointestinal: Report: No Significant Genitourinary: Report: No Significant Musculoskeletal: Report: No Significant Skin: Report: No Significant Neurological: Report: Weakness Physical Exam - Physical Exam HEENT: Report: Ears Nose Throat within normal limits Neck: Report: Within normal limits Cardiovascular Systems: Report: Regular, Rate and Rhythm Respiratory: Report: Breath Sounds are within normal limits Abdomen: Report: Non-tender to palpation, Other (Stoma present and clean) Back: Report: Inspection of back is within normal limits. Extremities: Report: Non-tender to palpation. Skin: Report: Color of skin is within normal limits, Warm, Dry Neuro/Psych: Report: Disoriented to name time or place - Lab Results All Lab Results last 24 hours: Laboratory Results - last 24 hr 02/23/19 02/23/19 13:10 13:10 WBC 9.0 RBC 5.04 Hgb 14.6 Hct 44.5 MCV 88.3 MCH 28.9 MCHC Differential 32.8 RDW 12.9 Plt Count 282 MPV 8.6 Neutrophils % 77.9 Lymphocytes % 15.0 L Monocytes % 4.5 Eosinophils % 1.8 Basophils % 0.8 Sodium 132 L Potassium 4.5 Chloride 99 Carbon Dioxide 25.3 Anion Gap 12.2 BUN 17 Creatinine 0.7 Est GFR ( Amer) > 60.0 Est GFR (Non-Af Amer) > 60.0 BUN/Creatinine Ratio 24.3 Glucose 102 Calcium 9.5 Total Bilirubin 0.3 AST 16 ALT 17 Alkaline Phosphatase 71 Total Protein 7.4 Albumin 4.1 L Globulin 3.3 Albumin/Globulin Ratio 1.2 Amylase 48 Lipase 19 - Assessment Assessment: Patient is sleeping but arousable, in no acute distress. Dx: G-tube malfunction , HTN, GERD, Hypothyroidism, Dementia. - Plan Plan: Patient in IV NS/D5, NPO, awaiting G-tube replacement.
--- NOTE | 2019-02-24 13:52 | Diagnostic Imaging Report ---
KUB single view HISTORY: Dislodged G-tube COMPARISON: CT abdomen and pelvis on 02/23/2019 FINDINGS: Dislodged G-tube portion is seen in the stomach as seen on recent CT exam. Moderate stool is noted. The bowel gas pattern is overall nonspecific. Partially visualized old femoral neck fractures are noted. IMPRESSION: Dislodged G-tube portion seen within the stomach as seen on recent CT exam. Moderate stool noted.
[2019-02-24] MEDS ORDERED: Non-Formulary Item 1 EA (Ferrous Sulfate [Ferosul] 330 MG) GT SCH (14:00)
[2019-02-24] MEDS: Ferrous Sulfate 300 MG/5 ML UDC PO SCH ×2 (14:57→20:32)
[2019-02-25 05:23] LABS: HEMATOCRIT 42.6 % (41.0-60); MEAN CELL VOLUME 88.3 fl (80-99); MEAN CORPUSCULAR HEMOGLOBIN 29.1 pg (26.0-30.0); MEAN CORPUSCULAR HGB CONC 32.9 pg (28.0-36.0); PLATELET COUNT 242 Th/cmm (150-400); RED BLOOD COUNT 4.82 Mil/cmm (4.30-5.70); WHITE BLOOD COUNT 11.3 Th/cmm (4.8-10.8)
[2019-02-25] MEDS: Levothyroxine 0.1 Mg Tab GT SCH (06:38)
[2019-02-25] MEDS: D5-0.9%NS 1,000 ML IV SCH ×2 (06:43→18:58)
[2019-02-25 07:04] LABS: INR 1.01 (0.5-1.4)
[2019-02-25] MEDS ORDERED: Lidocaine 2% Gel 5 mL TP ONE (07:45)
[2019-02-25] MEDS ORDERED: Propofol 10 mg/mL 20mL Vial **SURGERY USE ONLY IV ONE (07:45)
--- NOTE | 2019-02-25 08:49 | General Progress Note ---
Subjective - Review of Systems Service Date: 02/25/19 Subjective: Patient non verbal Objective - Results Result Diagrams: 02/25/19 05:18 02/23/19 13:10 Recent Labs: Laboratory Last Values WBC 11.3 Th/cmm (4.8-10.8) H 02/25/19 05:18 RBC 4.82 Mil/cmm (4.30-5.70) 02/25/19 05:18 Hgb 14.0 gm/dL (12-16) 02/25/19 05:18 Hct 42.6 % (41.0-60) 02/25/19 05:18 MCV 88.3 fl (80-99) 02/25/19 05:18 MCH 29.1 pg (26.0-30.0) 02/25/19 05:18 MCHC Differential 32.9 pg (28.0-36.0) 02/25/19 05:18 RDW 13.0 % (11.5-20.0) 02/25/19 05:18 Plt Count 242 Th/cmm (150-400) 02/25/19 05:18 MPV 8.4 fl 02/25/19 05:18 Neutrophils % 80.7 % (40.0-80.0) H 02/25/19 05:18 Lymphocytes % 11.9 % (20.0-50.0) L 02/25/19 05:18 Monocytes % 5.3 % (2.0-10.0) 02/25/19 05:18 Eosinophils % 1.3 % (0.0-5.0) 02/25/19 05:18 Basophils % 0.8 % (0.0-2.0) 02/25/19 05:18 PT 10.5 SECONDS (9.5-11.5) 02/25/19 05:18 INR 1.01 (0.5-1.4) 02/25/19 05:18 Sodium 132 mEq/L (136-145) L 02/23/19 13:10 Potassium 4.5 mEq/L (3.5-5.1) 02/23/19 13:10 Chloride 99 mEq/L (98-107) 02/23/19 13:10 Carbon Dioxide 25.3 mEq/L (21.0-31.0) 02/23/19 13:10 Anion Gap 12.2 (7.0-16.0) 02/23/19 13:10 BUN 17 mg/dL (7-25) 02/23/19 13:10 Creatinine 0.7 mg/dL (0.7-1.3) 02/23/19 13:10 Est GFR ( Amer) > 60.0 ml/min (>90) 02/23/19 13:10 Est GFR (Non-Af Amer) > 60.0 ml/min 02/23/19 13:10 BUN/Creatinine Ratio 24.3 02/23/19 13:10 Glucose 102 mg/dL (70-105) 02/23/19 13:10 POC Glucose 119 MG/DL (70 - 105) H 02/25/19 07:50 Calcium 9.5 mg/dL (8.6-10.3) 02/23/19 13:10 Total Bilirubin 0.3 mg/dL (0.3-1.0) 02/23/19 13:10 AST 16 U/L (13-39) 02/23/19 13:10 ALT 17 U/L (7-52) 02/23/19 13:10 Alkaline Phosphatase 71 U/L (34-104) 02/23/19 13:10 Total Protein 7.4 gm/dL (6.0-8.3) 02/23/19 13:10 Albumin 4.1 gm/dL (4.2-5.5) L 02/23/19 13:10 Globulin 3.3 gm/dL 02/23/19 13:10 Albumin/Globulin Ratio 1.2 (1.0-1.8) 02/23/19 13:10 Amylase 48 U/L (29-103) 02/23/19 13:10 Lipase 19 U/L (11-82) 02/23/19 13:10 - Physical Exam Vitals and I&O: Vital Signs Temp 98.7 F 02/25/19 03:54 Pulse 78 02/25/19 03:54 Resp 18 02/25/19 03:54 BP 113/72 02/25/19 03:54 Pulse Ox 96 02/25/19 03:54 Intake & Output 02/24/19 02/25/19 02/25/19 18:59 06:59 18:59 Intake Total 861.333 994.667 Balance 861.333 994.667 Weight (lbs) 63.503 kg 63.503 kg Intake: Intake, IV Amount 861.333 994.667 D5-0.9%Ns 1,000 ml @ 80 861.333 994.667 mls/hr IV .[id number] [facility] Rx #:[id number] Oral 0 Other: # Voids 4 2 # Bowel Movements 0 Weight Source Bedscale Bedscale Active Medications: Current Medications Acetaminophen (Tylenol) 650 mg GT Q4HR PRN PRN Reason: mild pain or temp >100 Stop: 04/25/19 09:06 Bisacodyl (Dulcolax 10 Mg Supp) 10 mg RC DAILY PRN PRN Reason: Constipation Stop: 04/25/19 09:06 Ferrous Sulfate (Iron) 300 mg PO TID [facility] Stop: 04/25/19 13:59 Last Admin: 02/24/19 20:32 Dose: Not Given Dextrose/Sodium Chloride (D5-0.9%Ns) 1,000 mls @ 80 mls/hr IV .[id number] [facility] Stop: 04/24/19 16:04 Last Admin: 02/25/19 06:43 Dose: 80 mls/hr Cefazolin Sodium 1 gm/ Sodium (Chloride) 50 mls @ 100 mls/hr IV Q8HR [facility] Stop: 04/26/19 08:59 Levothyroxine Sodium (Synthroid) 0.1 mg GT QDAC [facility] Stop: 04/26/19 07:29 Last Admin: 02/25/19 06:38 Dose: Not Given Pantoprazole Sodium (Protonix) 40 mg IVP QDAC [facility] Stop: 04/26/19 08:44 General: Alert, No acute distress HEENT: Atraumatic, PERRLA Neck: Supple Cardiovascular: Regular rate Lungs: Clear to auscultation Abdomen: Bowel sounds, Soft, Other (G tube in place) Extremities: Other (No edema) Neurological: Normal gait Skin: Other (Warm and dry) Psych/Mental Status: Other (Confused) - Procedures Procedures: Procedures Procedure Code Date CHANGE FEEDING DEVICE IN UP INTEST TRACT, SERVER ENGINEER APPROACH [id number] 08/26/16 CHANGE GASTROSTOMY TUBE 36009 08/26/16 Assessment/Plan - Assessment Assessment: Patient is sleeping but arousable, in no acute distress. Dx: G-tube malfunction , HTN, GERD, Hypothyroidism, Dementia. - Plan Plan: Patient in IV NS/D5, NPO, G-tube was not placed due to esophagitis and constricture of esophagus, consult with surgery recommended to place to PEG. GI will ordered a abdominal CT to a better evaluation of esophagitis and esophageal constricted. Nutritional Asmnt/Malnutr-PDOC - Dietary Evaluation Malnutrition Findings (Please click <Entered> for more info): Nutritional Asmnt/Malnutrition Start: 02/24/19 16: 30 Text: Status: Complete Freq: Protocol: Document 02/24/19 16:31 ANTOINETTE (Rec: 02/24/19 16:34 ANTOINETTE [email or web address]) Nutritional Asmnt/Malnutrition Patient General Information Nutritional Screening High Risk Diagnosis G TUBE MALFUNCTION Pertinent Medical Hx/Surgical Hx GERD, DEMENTIA, PSYCHOSIS, CAD , HTN, HYPOTHYROIDISM, MUSCLE ATROPHY Subjective Information PT IS A 58 YEAR OLD MALE ADMITTED ON 02/23 D/T BROKEN G- TUBE. PEG WAS PULLED OUT BY PY AT [facility]. PT IS WAITING ON A GI CONSULT AND G-TUBE REPLACEMENT. HT: 52 WT: 124 LB (56.36 KG) BMI: 22.68 (NORMAL) GI: WNL, SOFT, LARGE BM: NOT NOTED I/O: NOT NOTED SKIN: WNL, ROLLY, DRY, INTACT AMINA: 13 DIET ORDER: NPO ESTIMATED ENERGY NEEDS: (ADULT , CBW) 1526-9546 KCALS (25-30 KCALS/ KG) 45-51 G PRO (0.8-0.9 G/KG) 4116-3540 ML (25-30 ML/KG) Current Diet Order/ Nutrition Support NPO Pertinent Medications DULCOLAX (PRN), D5-0.9% NS, PEPCID, FERROUS SULFATE, SYNTHROID Pertinent Labs 02/23: NA 132, ALB 4.1 Nutritional Hx/Data Height 1.57 m Height (Calculated Centimeters) 157.5 Current Weight (lbs) 56.245 kg Weight (Calculated Kilograms) 56.2 Weight (Calculated Grams) 32851.5 [place] Body Weight 118 LB (53.64KG) % [place] Body Weight 105 Body Mass Index (BMI) 22.6 Weight Status Approriate GI Symptoms Last BM NOT NOTED Skin Integrity/Comment: WNL, ROLLY, DRY, INTACT AMINA: 13 Estimated Nutritional Goals BEE in Kcals: Using Current wt Calories/Kcals/Kg 25-30 Kcals Calculated 6247-4424 Protein: Using Current wt Protein g/k.8-0.9 Protein Calculated 45-51 Fluid: ml 8476-9891 ML (25-30 ML/KG) Nutritional Problem 1. Problem Problem INADEQUATE ENERGY INTAKE Etiology R/T GI CONSULT AND G-TUBE REPLACEMENT Signs/Symptoms: AEB NPO STATUS Malnutrition Related to Morbid Obesity Malnutrition related to morbid obesity No Intervention/Recommendation Comments 1. CONTINUE NPO STATUS MEDICALLY APPROPRIATE. 2. ADVANCE G-TUBE FEEDING ONCE MEDICALLY APPROPRIATE. Expected Outcomes/Goals Expected Outcomes/Goals 1. MONITOR NPO STATUS, WT, NUTRITION RELATED LABS AND SKIN INTEGRITY. 2. F/U HIGH RISK IN 2-3 DAYS, 02/26-02/27
--- NOTE | 2019-02-25 08:52 | Operative Report ---
DATE OF SURGERY: 02/25/2019 NAME OF PROCEDURE: EGD. REFERRING PHYSICIAN: Dr. Almaraz. REASON FOR PROCEDURE: Dysphagia and foreign object in the stomach. CONSENT: Risks, benefits, alternatives, nature, indication, possible outcomes were discussed. Mentioned bleeding, infection, perforation, and disability, cardiopulmonary distress and arrest, missed lesion and cancers, need for further surgery. The patient's agreeing green party provided informed consent. PREOPERATIVE DIAGNOSES: Dysphagia, foreign object in the stomach. POSTOPERATIVE DIAGNOSES: Dysphagia, foreign object in the stomach, esophageal stricture, esophagitis. MEDICATIONS: General anesthesia, Ancef 1 gram. DESCRIPTION OF PROCEDURE: The patient was placed on his back. Upper endoscope advanced from the mouth into the esophagus and a stricture was encountered. It was quite tight, could not see across it, could not traverse with our scope because we could not see the other side, I did not feel that balloon dilation would be safe. There was esophagitis in this area. Scope was slowly withdrawn along with air. COMPLICATIONS: None. FINDINGS: Esophageal stricture at about 31 cm with proximal esophagitis could not traverse the esophageal stricture and balloon dilation could not be done due to being unable to visualize the other side. Biopsy was considered, but due to the erosiveness of the esophagitis and the lack of a visible lesion, biopsy was not performed, also to minimize risk of bleeding or perforation. RECOMMENDATIONS: 1. Surgical evaluation. 2. Chest CT. 3. The patient may need a tertiary evaluation for esophageal dilation. 4. Provided the patient with Protonix. Thank you for allowing me to participate. Please call me if any questions. [facility]# [phone]
[2019-02-25] MEDS: ceFAZolin 1 GM in Sodium Chloride 0.9% 50 ML IV SCH ×3 (09:21→20:33)
[2019-02-25] MEDS: Ferrous Sulfate 300 MG/5 ML UDC PO SCH ×3 (09:31→22:45)
--- NOTE | 2019-02-25 10:31 | Diagnostic Imaging Report ---
CT scan of the chest without intravenous contrast HISTORY: Esophageal stricture, pain Total DLP equals 238 CTDI equals 6.3 Axial sections were obtained from a level above the clavicles down to level below the diaphragm. The heart size is generous. Normal-sized lymph nodes are seen within the mediastinum. Evaluation of hilar and vascular structures limited due to the absence of intravenous contrast. There is generalized thickening of the esophageal wall. There is a large hiatal hernia with the gastric fundus above the diaphragm. Poor delineation and detail of the gastroesophageal junction. Endoscopy would provide for further assessment and evaluation if needed. There is mild pleural thickening within the right and left lower hemithoracic regions. Additional nonspecific pulmonary parenchymal changes noted within the right and left lower lobes. IMPRESSION: 1. Large retrocardiac hiatal hernia with the gastric fundus above the diaphragm. Generalized thickening of the wall of the thoracic esophagus. Poor delineation the gastroesophageal junction. Endoscopic correlation would provide for further assessment if needed. 2. Mild pleural reaction within the right left lower hemithoracic regions along with nonspecific pulmonary parenchymal changes. 3. Incidental note are several punctate nonobstructing left renal calculi.
[2019-02-25] MEDS ORDERED: Probiotic Screen MC PRN (13:08)
--- NOTE | 2019-02-25 20:44 | Consultation ---
DATE OF CONSULTATION: 02/25/2019 INPATIENT GASTROINTESTINAL CONSULTATION REFERRING PHYSICIAN: Dr. Almaraz. REASON FOR CONSULTATION: Dysphagia. HISTORY OF PRESENT ILLNESS: This is a 58-year-old male who was brought to the hospital because he pulled out his G-tube. The patient has dementia and unable to give any meaningful history. Apparently, a CT scan was done and showed the internal portion of the G-tube is dislodged and remains within the stomach. We were asked to see the patient for the replacement of a feeding tube and for the dislodge portion of the G-tube. Again, the patient is a poor historian, unable to give any meaningful history. There have been no complaints or reports by staff of any abdominal pain, nausea, vomiting, GI bleeding or diarrhea. PAST MEDICAL HISTORY: Hypertension, peptic ulcer disease, thyroid disorder, dementia. PAST SURGICAL HISTORY: PEG tube placement. FAMILY HISTORY: Noncontributory. SOCIAL HISTORY: No tobacco, alcohol or IV drug usage. ALLERGIES: None. CURRENT MEDICATIONS: Tylenol, Dulcolax, cefazolin, Pepcid, iron, Synthroid. REVIEW OF SYSTEMS: Unobtainable. PHYSICAL EXAMINATION: VITAL SIGNS: Temperature 98.7, breathing 18, pulse of 78, blood pressure 113/72, satting 96%. GENERAL: In no apparent distress. EYES: Anicteric. Normal conjunctivae. HEENT: Normocephalic, atraumatic. Moist mucous membranes. NECK: Soft, supple. CHEST: Clear. No effort. CARDIOVASCULAR: Regular rate and rhythm. ABDOMEN: Soft, nontender, nondistended with an old scar and a gastrocutaneous fistula site that is closed completely. SKIN: Warm and dry. EXTREMITIES: Reveal no cyanosis. PSYCHOLOGICAL: Awake. LABORATORY DATA: Show white count 9, hemoglobin 14.6 and platelets of 282. INR is 1.01. LFTs are within normal limits. Lipase is within normal limits. CT abdomen and pelvis was reviewed and showed a dislodged portion of the G-tube continue within the stomach, moderate size hiatal hernia. KUB also shows the dislodged portion of the G-tube in the stomach. IMPRESSION: A 58-year-old male with dementia, dysphagia, likely from a central etiology. The patient pulled out his feeding tube and there was a dislodged portion of the G-tube within the stomach seen on both CT and x-ray. Endoscopy is being considered to both reinserting new feeding tube and to remove the dislodged portion of the G-tube remaining in the stomach. PLAN: 1. EGD, PEG. 2. We will need Ancef before the procedure. 3. Coags to be checked. Thank you for allowing me to participate. Please call me if any questions. JOB# [id number]
[2019-02-25 23:24] LABS: BAND NEUTROPHILE 0 % (0-10); BASOPHIL 0 % (0-3); EOSINOPHIL 1 % (0-5); LYMPHOCYTE 12 % (20-50); MONOCYTE 1 % (2-10); NEUTROPHILS 86 % (40-80)
[2019-02-25 23:25] LABS: PLATELET ESTIMATE ADEQUATE (NORMAL)
[2019-02-26] MEDS: ceFAZolin 1 GM in Sodium Chloride 0.9% 50 ML IV SCH ×3 (05:25→20:56)
[2019-02-26] MEDS: D5-0.9%NS 1,000 ML IV SCH ×2 (05:29→13:47)
[2019-02-26 06:16] LABS: ALB/GLOB RATIO 1.3 (1.0-1.8); ALBUMIN 3.4 gm/dL (4.2-5.5); ALKALINE PHOSPHATASE 62 U/L (34-104); ANION GAP 9.4 (7.0-16.0); BILIRUBIN,TOTAL 0.5 mg/dL (0.3-1.0); BUN - UREA NITROGEN 10 mg/dL (7-25); CALCIUM SERUM 8.7 mg/dL (8.6-10.3); CARBON DIOXIDE 22.3 mEq/L (21.0-31.0); CHLORIDE 112 mEq/L (98-107); CREATININE - SERUM 0.7 mg/dL (0.7-1.3); GFR AFRICAN-AMERICAN > 60.0 ml/min (>90); GFR NON AFRICAN-AMERICAN > 60.0 ml/min; GLUCOSE 102 mg/dL (70-105); POTASSIUM SERUM 3.7 mEq/L (3.5-5.1); SGOT 14 U/L (13-39); SGPT/ALT 11 U/L (7-52); SODIUM SERUM 140 mEq/L (136-145)
[2019-02-26 06:28] LABS: % EOSINOPHILS 3.3 % (0.0-5.0); % LYMPHOCYTES 34.4 % (20.0-50.0); % MONOCYTES 9.4 % (2.0-10.0); % NEUTROPHILS 52.9 % (40.0-80.0); EOSINOPHILE ABSOLUTE 0.2 Th/cmm (0.1-0.4); HEMOGLOBIN 12.6 gm/dL (12-16); LYMPHOCYTE ABSOLUTE 2.1 Th/cmm (1.5-3.0); MEAN CELL VOLUME 88.3 fl (80-99); MONOCYTE ABSOLUTE 0.6 Th/cmm (0.3-1.0); NEUTROPHILE ABSOLUTE 3.1 Th/cmm (1.8-8.0); PLATELET COUNT 246 Th/cmm (150-400); RED BLOOD COUNT 4.19 Mil/cmm (4.30-5.70); RED CELL DISTRIBUTION WIDTH 12.8 % (11.5-20.0)
[2019-02-26] MEDS: Levothyroxine 0.1 Mg Tab GT SCH (06:44)
[2019-02-26] MEDS: Ferrous Sulfate 300 MG/5 ML UDC PO SCH ×3 (08:08→20:00)
[2019-02-26] MEDS: Lactobacillus Rhamnosus GG 15 Billion CFU CAP.SPRINK PO SCH (08:09)
--- NOTE | 2019-02-26 09:30 | General Progress Note ---
Subjective - Review of Systems Service Date: 02/26/19 Subjective: Patient non verbal Objective - Results Result Diagrams: 02/26/19 05:40 02/26/19 05:40 Recent Labs: Laboratory Last Values WBC 6.0 Th/cmm (4.8-10.8) 02/26/19 05:40 RBC 4.19 Mil/cmm (4.30-5.70) L 02/26/19 05:40 Hgb 12.6 gm/dL (12-16) 02/26/19 05:40 Hct 37.0 % (41.0-60) L 02/26/19 05:40 MCV 88.3 fl (80-99) 02/26/19 05:40 MCH 30.0 pg (26.0-30.0) 02/26/19 05:40 MCHC Differential 34.0 pg (28.0-36.0) 02/26/19 05:40 RDW 12.8 % (11.5-20.0) 02/26/19 05:40 Plt Count 246 Th/cmm (150-400) 02/26/19 05:40 MPV 9.1 fl 02/26/19 05:40 Add Manual Diff YES 02/25/19 05:18 Neutrophils % 52.9 % (40.0-80.0) 02/26/19 05:40 Band Neutrophils % 0 % (0-10) 02/25/19 05:18 Lymphocytes % 34.4 % (20.0-50.0) 02/26/19 05:40 Monocytes % 9.4 % (2.0-10.0) 02/26/19 05:40 Eosinophils % 3.3 % (0.0-5.0) 02/26/19 05:40 Basophils % 0.0 % (0.0-2.0) 02/26/19 05:40 Neutrophils (Manual) 86 % (40-80) H 02/25/19 05:18 Lymphocytes 12 % (20-50) L 02/25/19 05:18 Monocytes 1 % (2-10) L 02/25/19 05:18 Eosinophils 1 % (0-5) 02/25/19 05:18 Basophils 0 % (0-3) 02/25/19 05:18 Platelet Estimate ADEQUATE (NORMAL) 02/25/19 05:18 PT 10.5 SECONDS (9.5-11.5) 02/25/19 05:18 INR 1.01 (0.5-1.4) 02/25/19 05:18 Sodium 140 mEq/L (136-145) 02/26/19 05:40 Potassium 3.7 mEq/L (3.5-5.1) 02/26/19 05:40 Chloride 112 mEq/L (98-107) H 02/26/19 05:40 Carbon Dioxide 22.3 mEq/L (21.0-31.0) 02/26/19 05:40 Anion Gap 9.4 (7.0-16.0) 02/26/19 05:40 BUN 10 mg/dL (7-25) 02/26/19 05:40 Creatinine 0.7 mg/dL (0.7-1.3) 02/26/19 05:40 Est GFR ( Amer) > 60.0 ml/min (>90) 02/26/19 05:40 Est GFR (Non-Af Amer) > 60.0 ml/min 02/26/19 05:40 BUN/Creatinine Ratio 14.3 02/26/19 05:40 Glucose 102 mg/dL (70-105) 02/26/19 05:40 POC Glucose 119 MG/DL (70 - 105) H 02/25/19 07:50 Calcium 8.7 mg/dL (8.6-10.3) 02/26/19 05:40 Total Bilirubin 0.5 mg/dL (0.3-1.0) 02/26/19 05:40 AST 14 U/L (13-39) 02/26/19 05:40 ALT 11 U/L (7-52) 02/26/19 05:40 Alkaline Phosphatase 62 U/L (34-104) 02/26/19 05:40 Total Protein 6.0 gm/dL (6.0-8.3) 02/26/19 05:40 Albumin 3.4 gm/dL (4.2-5.5) L 02/26/19 05:40 Globulin 2.6 gm/dL 02/26/19 05:40 Albumin/Globulin Ratio 1.3 (1.0-1.8) 02/26/19 05:40 Amylase 48 U/L (29-103) 02/23/19 13:10 Lipase 19 U/L (11-82) 02/23/19 13:10 - Physical Exam Vitals and I&O: Vital Signs Temp 97.3 F 02/26/19 08:00 Pulse 60 02/26/19 08:00 Resp 17 02/26/19 08:00 BP 105/75 02/26/19 08:00 Pulse Ox 91 02/26/19 08:00 Intake & Output 02/25/19 02/26/19 02/26/19 18:59 06:59 18:59 Intake Total 100 1050 Balance 100 1050 Weight (lbs) 63.503 kg Intake: Intake, IV Amount 100 1050 D5-0.9%Ns 1,000 ml @ 100 1000 mls/hr IV .Q10H [facility] Rx#: [id number] ceFAZolin 1 gm In Sodium 100 50 Chloride 0.9% 50 ml @ 100 mls/hr IV Q8HR [facility] Rx#: [id number] Other: # Voids 2 # Bowel Movements 1 Weight Source Bedscale Active Medications: Current Medications Acetaminophen (Tylenol) 650 mg GT Q4HR PRN PRN Reason: mild pain or temp >100 Stop: 04/25/19 09:06 Bisacodyl (Dulcolax 10 Mg Supp) 10 mg RC DAILY PRN PRN Reason: Constipation Stop: 04/25/19 09:06 Ferrous Sulfate (Iron) 300 mg PO TID [facility] Stop: 04/25/19 13:59 Last Admin: 02/26/19 08:08 Dose: Not Given Cefazolin Sodium 1 gm/ Sodium (Chloride) 50 mls @ 100 mls/hr IV Q8HR [facility] Stop: 04/26/19 08:59 Last Admin: 02/26/19 05:25 Dose: 100 mls/hr Dextrose/Sodium Chloride (D5-0.9%Ns) 1,000 mls @ 100 mls/hr IV .Q10H [facility] Stop: 04/26/19 17:59 Last Admin: 02/26/19 05:29 Dose: 100 mls/hr Lactobacillus Rhamnosus (Culturelle 15b) 1 each PO DAILY [facility] Stop: 04/27/19 08:59 Last Admin: 02/26/19 08:09 Dose: Not Given Levothyroxine Sodium (Synthroid) 0.1 mg GT QDAC [facility] Stop: 04/26/19 07:29 Last Admin: 02/26/19 06:44 Dose: Not Given Miscellaneous (Probiotic Screen) 1 ea MC PRN PRN PRN Reason: PROTOCOL Stop: 04/26/19 13:07 Pantoprazole Sodium (Protonix) 40 mg IVP QDAC [facility] Stop: 04/26/19 08:44 Last Admin: 02/26/19 06:48 Dose: 40 mg General: Alert, No acute distress HEENT: Atraumatic, PERRLA Neck: Supple Cardiovascular: Regular rate Lungs: Clear to auscultation Abdomen: Bowel sounds, Soft, Other (stoma is clean) Extremities: Other (No edema) Neurological: Normal gait Skin: Other (Warm and dry) Psych/Mental Status: Other (Confused) - Procedures Procedures: Procedures Procedure Code Date CHANGE FEEDING DEVICE IN UP INTEST TRACT, MEETING MANAGER APPROACH [id number] 08/26/16 CHANGE GASTROSTOMY TUBE 62722 08/26/16 INSPECTION OF UPPER INTESTINAL TRACT, ENDO [id number] 02/23/19 Assessment/Plan - Assessment Assessment: Patient is sleeping but arousable, in no acute distress. Dx: G-tube malfunction , HTN, GERD, Hypothyroidism, Dementia. - Plan Plan: Patient in IV NS/D5, NPO, G-tube was not placed due to esophagitis and constricture of esophagus, consult with surgery recommended to place to PEG. GI will ordered a abdominal CT to a better evaluation of esophagitis and esophageal constricted. Patient will have surgery in Thursday. Nutritional Asmnt/Malnutr-PDOC - Dietary Evaluation Malnutrition Findings (Please click <Entered> for more info): Nutritional Asmnt/Malnutrition Start: 02/24/19 16: 30 Text: Status: Complete Freq: Protocol: Document 02/24/19 16:31 ANTOINETTE (Rec: 02/24/19 16:34 ANTOINETTE [email or web address]) Nutritional Asmnt/Malnutrition Patient General Information Nutritional Screening High Risk Diagnosis G TUBE MALFUNCTION Pertinent Medical Hx/Surgical Hx GERD, DEMENTIA, PSYCHOSIS, CAD , HTN, HYPOTHYROIDISM, MUSCLE ATROPHY Subjective Information PT IS A 58 YEAR OLD MALE ADMITTED ON 02/23 D/T BROKEN G- TUBE. PEG WAS PULLED OUT BY PY AT [facility]. PT IS WAITING ON A GI CONSULT AND G-TUBE REPLACEMENT. HT: 52 WT: 124 LB (56.36 KG) BMI: 22.68 (NORMAL) GI: WNL, SOFT, LARGE BM: NOT NOTED I/O: NOT NOTED SKIN: WNL, ROLLY, DRY, INTACT AMINA: 13 DIET ORDER: NPO ESTIMATED ENERGY NEEDS: (ADULT , CBW) 1838-0291 KCALS (25-30 KCALS/ KG) 45-51 G PRO (0.8-0.9 G/KG) 4880-0521 ML (25-30 ML/KG) Current Diet Order/ Nutrition Support NPO Pertinent Medications DULCOLAX (PRN), D5-0.9% NS, PEPCID, FERROUS SULFATE, SYNTHROID Pertinent Labs 02/23: NA 132, ALB 4.1 Nutritional Hx/Data Height 1.57 m Height (Calculated Centimeters) 157.5 Current Weight (lbs) 56.245 kg Weight (Calculated Kilograms) 56.2 Weight (Calculated Grams) 80927.5 [place] Body Weight 118 LB (53.64KG) % [place] Body Weight 105 Body Mass Index (BMI) 22.6 Weight Status Approriate GI Symptoms Last BM NOT NOTED Skin Integrity/Comment: WNL, ROLLY, DRY, INTACT AMINA: 13 Estimated Nutritional Goals BEE in Kcals: Using Current wt Calories/Kcals/Kg 25-30 Kcals Calculated 2650-0687 Protein: Using Current wt Protein g/k.8-0.9 Protein Calculated 45-51 Fluid: ml 4418-1469 ML (25-30 ML/KG) Nutritional Problem 1. Problem Problem INADEQUATE ENERGY INTAKE Etiology R/T GI CONSULT AND G-TUBE REPLACEMENT Signs/Symptoms: AEB NPO STATUS Malnutrition Related to Morbid Obesity Malnutrition related to morbid obesity No Intervention/Recommendation Comments 1. CONTINUE NPO STATUS MEDICALLY APPROPRIATE. 2. ADVANCE G-TUBE FEEDING ONCE MEDICALLY APPROPRIATE. Expected Outcomes/Goals Expected Outcomes/Goals 1. MONITOR NPO STATUS, WT, NUTRITION RELATED LABS AND SKIN INTEGRITY. 2. F/U HIGH RISK IN 2-3 DAYS, 02/26-02/27
--- NOTE | 2019-02-26 09:33 | GI Progress Note ---
Subjective - Review of Systems Service Date: 02/26/19 Events since last encounter: no new events GI OBJECTIVE - Results Result Diagrams: 02/26/19 05:40 02/26/19 05:40 Recent Labs: Laboratory Last Values WBC 6.0 Th/cmm (4.8-10.8) 02/26/19 05:40 RBC 4.19 Mil/cmm (4.30-5.70) L 02/26/19 05:40 Hgb 12.6 gm/dL (12-16) 02/26/19 05:40 Hct 37.0 % (41.0-60) L 02/26/19 05:40 MCV 88.3 fl (80-99) 02/26/19 05:40 MCH 30.0 pg (26.0-30.0) 02/26/19 05:40 MCHC Differential 34.0 pg (28.0-36.0) 02/26/19 05:40 RDW 12.8 % (11.5-20.0) 02/26/19 05:40 Plt Count 246 Th/cmm (150-400) 02/26/19 05:40 MPV 9.1 fl 02/26/19 05:40 Add Manual Diff YES 02/25/19 05:18 Neutrophils % 52.9 % (40.0-80.0) 02/26/19 05:40 Band Neutrophils % 0 % (0-10) 02/25/19 05:18 Lymphocytes % 34.4 % (20.0-50.0) 02/26/19 05:40 Monocytes % 9.4 % (2.0-10.0) 02/26/19 05:40 Eosinophils % 3.3 % (0.0-5.0) 02/26/19 05:40 Basophils % 0.0 % (0.0-2.0) 02/26/19 05:40 Neutrophils (Manual) 86 % (40-80) H 02/25/19 05:18 Lymphocytes 12 % (20-50) L 02/25/19 05:18 Monocytes 1 % (2-10) L 02/25/19 05:18 Eosinophils 1 % (0-5) 02/25/19 05:18 Basophils 0 % (0-3) 02/25/19 05:18 Platelet Estimate ADEQUATE (NORMAL) 02/25/19 05:18 PT 10.5 SECONDS (9.5-11.5) 02/25/19 05:18 INR 1.01 (0.5-1.4) 02/25/19 05:18 Sodium 140 mEq/L (136-145) 02/26/19 05:40 Potassium 3.7 mEq/L (3.5-5.1) 02/26/19 05:40 Chloride 112 mEq/L (98-107) H 02/26/19 05:40 Carbon Dioxide 22.3 mEq/L (21.0-31.0) 02/26/19 05:40 Anion Gap 9.4 (7.0-16.0) 02/26/19 05:40 BUN 10 mg/dL (7-25) 02/26/19 05:40 Creatinine 0.7 mg/dL (0.7-1.3) 02/26/19 05:40 Est GFR ( Amer) > 60.0 ml/min (>90) 02/26/19 05:40 Est GFR (Non-Af Amer) > 60.0 ml/min 02/26/19 05:40 BUN/Creatinine Ratio 14.3 02/26/19 05:40 Glucose 102 mg/dL (70-105) 02/26/19 05:40 POC Glucose 119 MG/DL (70 - 105) H 02/25/19 07:50 Calcium 8.7 mg/dL (8.6-10.3) 02/26/19 05:40 Total Bilirubin 0.5 mg/dL (0.3-1.0) 02/26/19 05:40 AST 14 U/L (13-39) 02/26/19 05:40 ALT 11 U/L (7-52) 02/26/19 05:40 Alkaline Phosphatase 62 U/L (34-104) 02/26/19 05:40 Total Protein 6.0 gm/dL (6.0-8.3) 02/26/19 05:40 Albumin 3.4 gm/dL (4.2-5.5) L 02/26/19 05:40 Globulin 2.6 gm/dL 02/26/19 05:40 Albumin/Globulin Ratio 1.3 (1.0-1.8) 02/26/19 05:40 Amylase 48 U/L (29-103) 02/23/19 13:10 Lipase 19 U/L (11-82) 02/23/19 13:10 - Physical Exam Vitals and I&O: Vital Signs Temp 97.3 F 02/26/19 08:00 Pulse 60 02/26/19 08:00 Resp 17 02/26/19 08:00 BP 105/75 02/26/19 08:00 Pulse Ox 91 02/26/19 08:00 Intake & Output 02/25/19 02/26/19 02/26/19 18:59 06:59 18:59 Intake Total 100 1050 Balance 100 1050 Weight (lbs) 63.503 kg Intake: Intake, IV Amount 100 1050 D5-0.9%Ns 1,000 ml @ 100 1000 mls/hr IV .Q10H [facility] Rx#: [id number] ceFAZolin 1 gm In Sodium 100 50 Chloride 0.9% 50 ml @ 100 mls/hr IV Q8HR [facility] Rx#: [id number] Other: # Voids 2 # Bowel Movements 1 Weight Source Bedscale Active Medications: Current Medications Acetaminophen (Tylenol) 650 mg GT Q4HR PRN PRN Reason: mild pain or temp >100 Stop: 04/25/19 09:06 Bisacodyl (Dulcolax 10 Mg Supp) 10 mg RC DAILY PRN PRN Reason: Constipation Stop: 04/25/19 09:06 Ferrous Sulfate (Iron) 300 mg PO TID [facility] Stop: 04/25/19 13:59 Last Admin: 02/26/19 08:08 Dose: Not Given Cefazolin Sodium 1 gm/ Sodium (Chloride) 50 mls @ 100 mls/hr IV Q8HR [facility] Stop: 04/26/19 08:59 Last Admin: 02/26/19 05:25 Dose: 100 mls/hr Dextrose/Sodium Chloride (D5-0.9%Ns) 1,000 mls @ 100 mls/hr IV .Q10H [facility] Stop: 04/26/19 17:59 Last Admin: 02/26/19 05:29 Dose: 100 mls/hr Lactobacillus Rhamnosus (Culturelle 15b) 1 each PO DAILY [facility] Stop: 04/27/19 08:59 Last Admin: 02/26/19 08:09 Dose: Not Given Levothyroxine Sodium (Synthroid) 0.1 mg GT QDAC [facility] Stop: 04/26/19 07:29 Last Admin: 02/26/19 06:44 Dose: Not Given Miscellaneous (Probiotic Screen) 1 ea MC PRN PRN PRN Reason: PROTOCOL Stop: 04/26/19 13:07 Pantoprazole Sodium (Protonix) 40 mg IVP QDAC [facility] Stop: 04/26/19 08:44 Last Admin: 02/26/19 06:48 Dose: 40 mg Neck: Supple Cardiovascular: Regular rate Lungs: Clear to auscultation Abdomen: Bowel sounds - Procedures Procedures: Procedures Procedure Code Date CHANGE FEEDING DEVICE IN UP INTEST TRACT, SHELLFISH PROCESSING LABORER APPROACH [id number] 08/26/16 CHANGE GASTROSTOMY TUBE 00337 08/26/16 INSPECTION OF UPPER INTESTINAL TRACT, ENDO [id number] 02/23/19 Assessment/Plan - Assessment Assessment: 1. Dislodged G tube 2. Severe esophageal stricture 3. Protein calorie malnutrition -Will need surgical opinion -please see EGD report by Dr Park for more details -Supportive management -Limited Gi options at current time -Consider tertiary referral for esophageal dilation under flouroscopy
[2019-02-27] MEDS: D5-0.9%NS 1,000 ML IV SCH (04:00)
[2019-02-27] MEDS: ceFAZolin 1 GM in Sodium Chloride 0.9% 50 ML IV SCH ×3 (05:41→20:48)
[2019-02-27 06:36] LABS: ALB/GLOB RATIO 1.3 (1.0-1.8); ALBUMIN 3.7 gm/dL (4.2-5.5); ALKALINE PHOSPHATASE 66 U/L (34-104); ANION GAP 10.9 (7.0-16.0); BILIRUBIN,TOTAL 0.5 mg/dL (0.3-1.0); BUN - UREA NITROGEN 9 mg/dL (7-25); CARBON DIOXIDE 23.3 mEq/L (21.0-31.0); CHLORIDE 105 mEq/L (98-107); CREATININE - SERUM 0.7 mg/dL (0.7-1.3); GFR AFRICAN-AMERICAN > 60.0 ml/min (>90); GFR NON AFRICAN-AMERICAN > 60.0 ml/min; GLUCOSE 75 mg/dL (70-105); POTASSIUM SERUM 3.2 mEq/L (3.5-5.1); SGOT 17 U/L (13-39); SGPT/ALT 11 U/L (7-52); SODIUM SERUM 136 mEq/L (136-145); TOTAL PROTEIN,SERUM 6.5 gm/dL (6.0-8.3)
[2019-02-27 06:46] LABS: % BASOPHILS 0.1 % (0.0-2.0); % EOSINOPHILS 2.9 % (0.0-5.0); % LYMPHOCYTES 29.1 % (20.0-50.0); % MONOCYTES 7.4 % (2.0-10.0); % NEUTROPHILS 60.5 % (40.0-80.0); EOSINOPHILE ABSOLUTE 0.2 Th/cmm (0.1-0.4); HEMATOCRIT 38.6 % (41.0-60); LYMPHOCYTE ABSOLUTE 1.6 Th/cmm (1.5-3.0); MEAN CELL VOLUME 87.9 fl (80-99); MEAN CORPUSCULAR HEMOGLOBIN 29.5 pg (26.0-30.0); MEAN CORPUSCULAR HGB CONC 33.6 pg (28.0-36.0); MONOCYTE ABSOLUTE 0.4 Th/cmm (0.3-1.0); NEUTROPHILE ABSOLUTE 3.4 Th/cmm (1.8-8.0); PLATELET COUNT 233 Th/cmm (150-400); RED BLOOD COUNT 4.39 Mil/cmm (4.30-5.70); RED CELL DISTRIBUTION WIDTH 12.4 % (11.5-20.0); WHITE BLOOD COUNT 5.6 Th/cmm (4.8-10.8)
[2019-02-27] MEDS: Levothyroxine 0.1 Mg Tab GT SCH (06:52)
--- NOTE | 2019-02-27 09:04 | GI Progress Note ---
Subjective - Review of Systems Service Date: 02/27/19 Events since last encounter: pt non verbal, no events, Ct chest noted GI OBJECTIVE - Results Result Diagrams: 02/27/19 05:45 02/27/19 05:50 Recent Labs: Laboratory Last Values WBC 5.6 Th/cmm (4.8-10.8) 02/27/19 05:45 RBC 4.39 Mil/cmm (4.30-5.70) 02/27/19 05:45 Hgb 13.0 gm/dL (12-16) 02/27/19 05:45 Hct 38.6 % (41.0-60) L 02/27/19 05:45 MCV 87.9 fl (80-99) 02/27/19 05:45 MCH 29.5 pg (26.0-30.0) 02/27/19 05:45 MCHC Differential 33.6 pg (28.0-36.0) 02/27/19 05:45 RDW 12.4 % (11.5-20.0) 02/27/19 05:45 Plt Count 233 Th/cmm (150-400) 02/27/19 05:45 MPV 8.7 fl 02/27/19 05:45 Add Manual Diff YES 02/25/19 05:18 Neutrophils % 60.5 % (40.0-80.0) 02/27/19 05:45 Band Neutrophils % 0 % (0-10) 02/25/19 05:18 Lymphocytes % 29.1 % (20.0-50.0) 02/27/19 05:45 Monocytes % 7.4 % (2.0-10.0) 02/27/19 05:45 Eosinophils % 2.9 % (0.0-5.0) 02/27/19 05:45 Basophils % 0.1 % (0.0-2.0) 02/27/19 05:45 Neutrophils (Manual) 86 % (40-80) H 02/25/19 05:18 Lymphocytes 12 % (20-50) L 02/25/19 05:18 Monocytes 1 % (2-10) L 02/25/19 05:18 Eosinophils 1 % (0-5) 02/25/19 05:18 Basophils 0 % (0-3) 02/25/19 05:18 Platelet Estimate ADEQUATE (NORMAL) 02/25/19 05:18 PT 10.5 SECONDS (9.5-11.5) 02/25/19 05:18 INR 1.01 (0.5-1.4) 02/25/19 05:18 Sodium 136 mEq/L (136-145) 02/27/19 05:50 Potassium 3.2 mEq/L (3.5-5.1) L 02/27/19 05:50 Chloride 105 mEq/L (98-107) 02/27/19 05:50 Carbon Dioxide 23.3 mEq/L (21.0-31.0) 02/27/19 05:50 Anion Gap 10.9 (7.0-16.0) 02/27/19 05:50 BUN 9 mg/dL (7-25) 02/27/19 05:50 Creatinine 0.7 mg/dL (0.7-1.3) 02/27/19 05:50 Est GFR ( Amer) > 60.0 ml/min (>90) 02/27/19 05:50 Est GFR (Non-Af Amer) > 60.0 ml/min 02/27/19 05:50 BUN/Creatinine Ratio 12.9 02/27/19 05:50 Glucose 75 mg/dL (70-105) 02/27/19 05:50 POC Glucose 119 MG/DL (70 - 105) H 02/25/19 07:50 Calcium 9.0 mg/dL (8.6-10.3) 02/27/19 05:50 Total Bilirubin 0.5 mg/dL (0.3-1.0) 02/27/19 05:50 AST 17 U/L (13-39) 02/27/19 05:50 ALT 11 U/L (7-52) 02/27/19 05:50 Alkaline Phosphatase 66 U/L (34-104) 02/27/19 05:50 Total Protein 6.5 gm/dL (6.0-8.3) 02/27/19 05:50 Albumin 3.7 gm/dL (4.2-5.5) L 02/27/19 05:50 Globulin 2.8 gm/dL 02/27/19 05:50 Albumin/Globulin Ratio 1.3 (1.0-1.8) 07/21/19 05:50 Amylase 48 U/L (29-103) 02/23/19 13:10 Lipase 19 U/L (11-82) 02/23/19 13:10 - Physical Exam Vitals and I&O: Vital Signs Temp 98.2 F 02/27/19 08:00 Pulse 55 02/27/19 08:00 Resp 18 02/27/19 08:00 BP 131/86 02/27/19 08:00 Pulse Ox 96 02/27/19 08:00 Intake & Output 02/26/19 02/27/19 02/27/19 18:59 06:59 18:59 Intake Total 880 1100 Balance 880 1100 Intake: Intake, IV Amount 880 1100 D5-0.9%Ns 1,000 ml @ 672 079 0488 mls/hr IV .Q10H [facility] Rx#: [id number] ceFAZolin 1 gm In Sodium 50 100 Chloride 0.9% 50 ml @ 100 mls/hr IV Q8HR [facility] Rx#: [id number] Active Medications: Current Medications Acetaminophen (Tylenol) 650 mg GT Q4HR PRN PRN Reason: mild pain or temp >100 Stop: 04/25/19 09:06 Bisacodyl (Dulcolax 10 Mg Supp) 10 mg RC DAILY PRN PRN Reason: Constipation Stop: 04/25/19 09:06 Ferrous Sulfate (Iron) 300 mg PO TID [facility] Stop: 04/25/19 13:59 Last Admin: 02/26/19 20:00 Dose: Not Given Cefazolin Sodium 1 gm/ Sodium (Chloride) 50 mls @ 100 mls/hr IV Q8HR [facility] Stop: 04/26/19 08:59 Last Infusion: 02/27/19 06:15 Dose: Infused Dextrose/Sodium Chloride (D5-0.9%Ns) 1,000 mls @ 100 mls/hr IV .Q10H [facility] Stop: 04/26/19 17:59 Last Admin: 02/27/19 04:00 Dose: 100 mls/hr Lactobacillus Rhamnosus (Culturelle 15b) 1 each PO DAILY [facility] Stop: 04/27/19 08:59 Last Admin: 02/26/19 08:09 Dose: Not Given Levothyroxine Sodium (Synthroid) 0.1 mg GT QDAC [facility] Stop: 04/26/19 07:29 Last Admin: 02/27/19 06:52 Dose: Not Given Miscellaneous (Probiotic Screen) 1 ea MC PRN PRN PRN Reason: PROTOCOL Stop: 04/26/19 13:07 Pantoprazole Sodium (Protonix) 40 mg IVP QDAC [facility] Stop: 04/26/19 08:44 Last Admin: 02/27/19 06:51 Dose: 40 mg General: Cooperative HEENT: Atraumatic, PERRLA Neck: Supple, Thyromegaly Cardiovascular: Normal S1, Normal S2 Abdomen: Bowel sounds - Procedures Procedures: Procedures Procedure Code Date CHANGE FEEDING DEVICE IN UP INTEST TRACT, BARREL BRANDER APPROACH [id number] 08/26/16 CHANGE GASTROSTOMY TUBE 47319 08/26/16 INSPECTION OF UPPER INTESTINAL TRACT, ENDO [id number] 02/23/19 Assessment/Plan - Assessment Assessment: 1. Dislodged G tube 2. Severe esophageal stricture 3. Protein calorie malnutrition -Will need surgical opinion -please see EGD report by Dr Park for more details -Supportive management -Limited Gi options at current time -CT showed large retrocardiac hiatal hernia with poor delineationof the GE junction -F/u surgery recs possible OR thursday?
[2019-02-27] MEDS ORDERED: KCL 20mEq/100mL Premix 20 MEQ/100 ML PIGGYBACK IV ONE (10:51)
--- NOTE | 2019-02-27 11:02 | General Progress Note ---
Subjective - Review of Systems Service Date: 02/27/19 Subjective: Patient non verbal Objective - Results Result Diagrams: 02/27/19 05:45 02/27/19 05:50 Recent Labs: Laboratory Last Values WBC 5.6 Th/cmm (4.8-10.8) 02/27/19 05:45 RBC 4.39 Mil/cmm (4.30-5.70) 02/27/19 05:45 Hgb 13.0 gm/dL (12-16) 02/27/19 05:45 Hct 38.6 % (41.0-60) L 02/27/19 05:45 MCV 87.9 fl (80-99) 02/27/19 05:45 MCH 29.5 pg (26.0-30.0) 02/27/19 05:45 MCHC Differential 33.6 pg (28.0-36.0) 02/27/19 05:45 RDW 12.4 % (11.5-20.0) 02/27/19 05:45 Plt Count 233 Th/cmm (150-400) 02/27/19 05:45 MPV 8.7 fl 02/27/19 05:45 Add Manual Diff YES 02/25/19 05:18 Neutrophils % 60.5 % (40.0-80.0) 02/27/19 05:45 Band Neutrophils % 0 % (0-10) 02/25/19 05:18 Lymphocytes % 29.1 % (20.0-50.0) 02/27/19 05:45 Monocytes % 7.4 % (2.0-10.0) 02/27/19 05:45 Eosinophils % 2.9 % (0.0-5.0) 02/27/19 05:45 Basophils % 0.1 % (0.0-2.0) 02/27/19 05:45 Neutrophils (Manual) 86 % (40-80) H 02/25/19 05:18 Lymphocytes 12 % (20-50) L 02/25/19 05:18 Monocytes 1 % (2-10) L 02/25/19 05:18 Eosinophils 1 % (0-5) 02/25/19 05:18 Basophils 0 % (0-3) 02/25/19 05:18 Platelet Estimate ADEQUATE (NORMAL) 02/25/19 05:18 PT 10.5 SECONDS (9.5-11.5) 02/25/19 05:18 INR 1.01 (0.5-1.4) 02/25/19 05:18 Sodium 136 mEq/L (136-145) 02/27/19 05:50 Potassium 3.2 mEq/L (3.5-5.1) L 02/27/19 05:50 Chloride 105 mEq/L (98-107) 02/27/19 05:50 Carbon Dioxide 23.3 mEq/L (21.0-31.0) 02/27/19 05:50 Anion Gap 10.9 (7.0-16.0) 02/27/19 05:50 BUN 9 mg/dL (7-25) 02/27/19 05:50 Creatinine 0.7 mg/dL (0.7-1.3) 02/27/19 05:50 Est GFR ( Amer) > 60.0 ml/min (>90) 02/27/19 05:50 Est GFR (Non-Af Amer) > 60.0 ml/min 02/27/19 05:50 BUN/Creatinine Ratio 12.9 02/27/19 05:50 Glucose 75 mg/dL (70-105) 02/27/19 05:50 POC Glucose 119 MG/DL (70 - 105) H 02/25/19 07:50 Calcium 9.0 mg/dL (8.6-10.3) 02/27/19 05:50 Total Bilirubin 0.5 mg/dL (0.3-1.0) 02/27/19 05:50 AST 17 U/L (13-39) 02/27/19 05:50 ALT 11 U/L (7-52) 02/27/19 05:50 Alkaline Phosphatase 66 U/L (34-104) 02/27/19 05:50 Total Protein 6.5 gm/dL (6.0-8.3) 02/27/19 05:50 Albumin 3.7 gm/dL (4.2-5.5) L 02/27/19 05:50 Globulin 2.8 gm/dL 02/27/19 05:50 Albumin/Globulin Ratio 1.3 (1.0-1.8) 02/27/19 05:50 Amylase 48 U/L (29-103) 02/23/19 13:10 Lipase 19 U/L (11-82) 02/23/19 13:10 - Physical Exam Vitals and I&O: Vital Signs Temp 98.2 F 02/27/19 08:00 Pulse 55 02/27/19 08:00 Resp 18 02/27/19 08:00 BP 131/86 02/27/19 08:00 Pulse Ox 96 02/27/19 08:00 Intake & Output 02/26/19 02/27/19 02/27/19 18:59 06:59 18:59 Intake Total 880 1100 Balance 880 1100 Intake: Intake, IV Amount 880 1100 D5-0.9%Ns 1,000 ml @ 724 158 4831 mls/hr IV .Q10H PENDING [facility] TO [facility] Rx#: [id number] ceFAZolin 1 gm In Sodium 50 100 Chloride 0.9% 50 ml @ 100 mls/hr IV Q8HR PENDING [facility] TO [facility] Rx#: [id number] Active Medications: Current Medications Acetaminophen (Tylenol) 650 mg GT Q4HR PRN PRN Reason: mild pain or temp >100 Stop: 04/25/19 09:06 Bisacodyl (Dulcolax 10 Mg Supp) 10 mg RC DAILY PRN PRN Reason: Constipation Stop: 04/25/19 09:06 Ferrous Sulfate (Iron) 300 mg PO TID [facility] TO [facility] Stop: 04/25/19 13:59 Last Admin: 02/26/19 20:00 Dose: Not Given Cefazolin Sodium 1 gm/ Sodium (Chloride) 50 mls @ 100 mls/hr IV Q8HR PENDING [facility] TO [facility] Stop: 04/26/19 08:59 Last Infusion: 02/27/19 06:15 Dose: Infused Dextrose/Sodium Chloride (D5-0.9%Ns) 1,000 mls @ 100 mls/hr IV .Q10H PENDING [facility] TO [facility] Stop: 04/26/19 17:59 Last Admin: 02/27/19 04:00 Dose: 100 mls/hr Potassium Chloride (Potassium Chloride) 20 meq in 100 mls @ 50 mls/hr IV X1 ONE Stop: 02/27/19 12:50 Lactobacillus Rhamnosus (Culturelle 15b) 1 each PO DAILY [facility] TO [facility] Stop: 04/27/19 08:59 Last Admin: 02/26/19 08:09 Dose: Not Given Levothyroxine Sodium (Synthroid) 0.1 mg GT QDAC [facility]END[facility] TO [facility] Stop: 04/26/19 07:29 Last Admin: 02/27/19 06:52 Dose: Not Given Miscellaneous (Probiotic Screen) 1 ea MC PRN PRN PRN Reason: PROTOCOL Stop: 04/26/19 13:07 Pantoprazole Sodium (Protonix) 40 mg IVP QDAC PENDING [facility] TO [facility] Stop: 04/26/19 08:44 Last Admin: 02/27/19 06:51 Dose: 40 mg General: Alert, No acute distress HEENT: Atraumatic, PERRLA Neck: Supple Cardiovascular: Regular rate Lungs: Clear to auscultation Abdomen: Bowel sounds, Soft, Other (stoma is clean) Extremities: Other (No edema) Neurological: Normal gait Skin: Other (Warm and dry) Psych/Mental Status: Other (Confused) - Procedures Procedures: Procedures Procedure Code Date CHANGE FEEDING DEVICE IN UP INTEST TRACT, LEASING MACHINE TENDER APPROACH [id number] 08/26/16 CHANGE GASTROSTOMY TUBE 52094 08/26/16 INSPECTION OF UPPER INTESTINAL TRACT, ENDO [id number] 02/23/19 Assessment/Plan - Assessment Assessment: Patient is sleeping but arousable, in no acute distress. Dx: G-tube malfunction , HTN, GERD, Hypothyroidism, Dementia. - Plan Plan: Patient in IV NS/D5, NPO, G-tube was not placed due to esophagitis and constricture of esophagus, consult with surgery recommended to place to PEG. GI will ordered a abdominal CT to a better evaluation of esophagitis and esophageal stricture. Patient will have surgery Tomorrow. Nutritional Asmnt/Malnutr-PDOC - Dietary Evaluation Malnutrition Findings (Please click <Entered> for more info): Nutritional Asmnt/Malnutrition Start: 02/24/19 16: 30 Text: Status: Complete Freq: Protocol: Document 02/24/19 16:31 ANTOINETTE (Rec: 02/24/19 16:34 ANTOINETTE [email or web address]) Nutritional Asmnt/Malnutrition Patient General Information Nutritional Screening High Risk Diagnosis G TUBE MALFUNCTION Pertinent Medical Hx/Surgical Hx GERD, DEMENTIA, PSYCHOSIS, CAD , HTN, HYPOTHYROIDISM, MUSCLE ATROPHY Subjective Information PT IS A 58 YEAR OLD MALE ADMITTED ON 02/23 D/T BROKEN G- TUBE. PEG WAS PULLED OUT BY PY AT [facility]. PT IS WAITING ON A GI CONSULT AND G-TUBE REPLACEMENT. HT: 52 WT: 124 LB (56.36 KG) BMI: 22.68 (NORMAL) GI: WNL, SOFT, LARGE BM: NOT NOTED I/O: NOT NOTED SKIN: WNL, ROLLY, DRY, INTACT AMINA: 13 DIET ORDER: NPO ESTIMATED ENERGY NEEDS: (ADULT , CBW) 7611-8283 KCALS (25-30 KCALS/ KG) 45-51 G PRO (0.8-0.9 G/KG) 8217-5963 ML (25-30 ML/KG) Current Diet Order/ Nutrition Support NPO Pertinent Medications DULCOLAX (PRN), D5-0.9% NS, PEPCID, FERROUS SULFATE, SYNTHROID Pertinent Labs 02/23: NA 132, ALB 4.1 Nutritional Hx/Data Height 1.57 m Height (Calculated Centimeters) 157.5 Current Weight (lbs) 56.245 kg Weight (Calculated Kilograms) 56.2 Weight (Calculated Grams) 70060.5 [place] Body Weight 118 LB (53.64KG) % [place] Body Weight 105 Body Mass Index (BMI) 22.6 Weight Status Approriate GI Symptoms Last BM NOT NOTED Skin Integrity/Comment: WNL, ROLLY, DRY, INTACT AMINA: 13 Estimated Nutritional Goals BEE in Kcals: Using Current wt Calories/Kcals/Kg 25-30 Kcals Calculated 4041-6268 Protein: Using Current wt Protein g/k.8-0.9 Protein Calculated 45-51 Fluid: ml 0747-7386 ML (25-30 ML/KG) Nutritional Problem 1. Problem Problem INADEQUATE ENERGY INTAKE Etiology R/T GI CONSULT AND G-TUBE REPLACEMENT Signs/Symptoms: AEB NPO STATUS Malnutrition Related to Morbid Obesity Malnutrition related to morbid obesity No Intervention/Recommendation Comments 1. CONTINUE NPO STATUS MEDICALLY APPROPRIATE. 2. ADVANCE G-TUBE FEEDING ONCE MEDICALLY APPROPRIATE. Expected Outcomes/Goals Expected Outcomes/Goals 1. MONITOR NPO STATUS, WT, NUTRITION RELATED LABS AND SKIN INTEGRITY. 2. F/U HIGH RISK IN 2-3 DAYS, 02/26-02/27
[2019-02-27] MEDS: Lactobacillus Rhamnosus GG 15 Billion CFU CAP.SPRINK PO SCH (11:21)
[2019-02-27] MEDS: Ferrous Sulfate 300 MG/5 ML UDC PO SCH ×3 (11:21→21:20)
--- NOTE | 2019-02-27 23:22 | Consultation ---
Consult Note - Consult Note Service Date: 02/27/19 Referring Physician: Dustin Almaraz Consult Note: PHYSICIAN Consultation Note: Date of Admission: 02/23/19 Purpose of Consultation: Chief Complaint: History of Present Illness: Patient DESIRAE HILL was admitted to [facility] with G- TUBE MALFUNCTION. Past Medical History: Diagnoses HYPOTHYROIDISM, UNSPECIFIED (02/23/19) UNSPECIFIED DEMENTIA WITHOUT BEHAVIORAL DISTURBANCE (02/23/19) ESSENTIAL (PRIMARY) HYPERTENSION (02/23/19) ESOPHAGITIS, UNSPECIFIED (02/23/19) GASTRO-ESOPHAGEAL REFLUX DISEASE WITHOUT ESOPHAGITIS (02/23/19) ESOPHAGEAL OBSTRUCTION (02/23/19) GASTROSTOMY MALFUNCTION (02/23/19) WEAKNESS (02/23/19) FOREIGN BODY IN STOMACH, INITIAL ENCOUNTER (02/23/19) Allergies Allergy/AdvReac Type Severity Reaction Status Date / Time No Known Allergies Allergy Verified 02/23/19 12:52 Vital Signs Temp 97.8 F 02/27/19 20:00 Pulse 83 02/27/19 20:00 Resp 18 02/27/19 20:00 BP 128/83 02/27/19 20:00 Pulse Ox 96 02/27/19 20:00 Intake & Output 02/27/19 02/27/19 02/28/19 06:59 18:59 06:59 Intake Total 1100 50 50 Balance 1100 50 50 Weight (lbs) 140 lb Intake: Intake, IV Amount 1100 50 50 D5-0.9%Ns 1,000 ml @ 100 1000 mls/hr IV .Q10H [facility] Rx#: [id number] ceFAZolin 1 gm In Sodium 100 50 50 Chloride 0.9% 50 ml @ 100 mls/hr IV Q8HR [facility] Rx#: [id number] Oral 0 Other: # Voids 3 # Bowel Movements 0 Weight Source Bedscale Laboratory Results - last 24 hr 02/27/19 02/27/19 05:45 05:50 WBC 5.6 RBC 4.39 Hgb 13.0 Hct 38.6 L MCV 87.9 MCH 29.5 MCHC Differential 33.6 RDW 12.4 Plt Count 233 MPV 8.7 Neutrophils % 60.5 Lymphocytes % 29.1 Monocytes % 7.4 Eosinophils % 2.9 Basophils % 0.1 Sodium 136 Potassium 3.2 L Chloride 105 Carbon Dioxide 23.3 Anion Gap 10.9 BUN 9 Creatinine 0.7 Est GFR ( Amer) > 60.0 Est GFR (Non-Af Amer) > 60.0 BUN/Creatinine Ratio 12.9 Glucose 75 Calcium 9.0 Total Bilirubin 0.5 AST 17 ALT 11 Alkaline Phosphatase 66 Total Protein 6.5 Albumin 3.7 L Globulin 2.8 Albumin/Globulin Ratio 1.3 Home Medication Medication Instructions Recorded Type Acetaminophen [Tylenol] 650 mg GT Q4HR PRN 08/26/16 History Bisacodyl [Dulcolax 10 Mg Supp] 10 mg RC DAILY PRN 08/26/16 History Levetiracetam 500 mg GT Q12H 08/26/16 History Levothyroxine [Synthroid] 100 mcg GT QDAC 08/26/16 History Metoclopramide [Reglan] 5 mg GT Q12H 08/26/16 History Pantoprazole [Protonix] 40 mg GT DAILY 08/26/16 History Zonisamide 100 mg GT DAILY 08/26/16 History Famotidine [Pepcid] 20 mg GT DAILY 02/23/19 History Ferrous Sulfate [Ferosul] 330 mg GT TID 02/23/19 History Current Medications Generic Name Dose Route Start Last Admin Trade Name Freq PRN Reason Stop Dose Admin Acetaminophen 650 mg 02/24/19 09:07 Tylenol GT 04/25/19 09:06 Q4HR PRN mild pain or temp >100 Bisacodyl 10 mg 02/24/19 09:07 Dulcolax 10 Mg Supp RC 04/25/19 09:06 DAILY PRN Constipation Ferrous Sulfate 300 mg 02/24/19 14:00 02/27/19 21:20 Iron PO 04/25/19 13:59 Not Given TID [facility] Cefazolin Sodium 1 gm/ Sodium 50 mls @ 100 mls/hr 02/25/19 09:00 02/27/19 21: 20 Chloride IV 04/26/19 08:59 Infused Q8HR [facility] Infusion Dextrose/Sodium Chloride 1,000 mls @ 100 mls/hr 02/25/19 18:00 02/27/19 04:00 D5-0.9%Ns IV 04/26/19 17:59 100 mls/hr .Q10H RE[facility] Administration Lactobacillus Rhamnosus 1 each 02/26/19 09:00 02/27/19 11:21 Culturelle 15b PO 04/27/19 08:59 Not Given DAILY RE[facility] Levothyroxine Sodium 0.1 mg 02/25/19 07:30 02/27/19 06:52 Synthroid GT 04/26/19 07:29 Not Given QDAC [facility] Miscellaneous 1 ea 02/25/19 13:08 Probiotic Screen MC 04/26/19 13:07 PRN PRN PROTOCOL Pantoprazole Sodium 40 mg 02/25/19 08:45 02/27/19 06:51 Protonix IVP 04/26/19 08:44 40 mg QDAC RE[facility] Administration Review of Systems: A 12 point ROS was reviewed with the pertinent positive and negatives noted in the HPI. Social History Smoking Status Unknown if ever smoked Family Medical History Family Medical History Start: 02/23/19 15: 11 Freq: ONCE Status: Active Protocol: Document 02/23/19 15:11 GMAGDANGAL (Rec: 02/23/19 16:36 GMAGDANGAL RITA -MS1) Family Medical History Mother History Unknown Yes Physical Exam: patient is confused and handicapped General: HEENT: Neck: Cardio: Respiratory: Abdominal: small residual area of where gastrostomy Genital/Urinary: Extremities: Neurological: Assessment: g tube is pulled out and a small portion is in the stomach. Plan: exploratory laparotomy removal of foreign body in stomach revision of the gastrostomy Linda Dejesus Raffael [id number]
[2019-02-28] MEDS: ceFAZolin 1 GM in Sodium Chloride 0.9% 50 ML IV SCH ×3 (04:54→20:37)
[2019-02-28 05:11] LABS: INR 1.36 (0.5-1.4)
[2019-02-28 05:14] LABS: % BASOPHILS 0.1 % (0.0-2.0); % EOSINOPHILS 1.7 % (0.0-5.0); % LYMPHOCYTES 18.8 % (20.0-50.0); % MONOCYTES 6.6 % (2.0-10.0); % NEUTROPHILS 72.8 % (40.0-80.0); EOSINOPHILE ABSOLUTE 0.1 Th/cmm (0.1-0.4); HEMATOCRIT 38.3 % (41.0-60); HEMOGLOBIN 13.1 gm/dL (12-16); LYMPHOCYTE ABSOLUTE 1.4 Th/cmm (1.5-3.0); MEAN CELL VOLUME 86.5 fl (80-99); MEAN CORPUSCULAR HEMOGLOBIN 29.6 pg (26.0-30.0); MEAN CORPUSCULAR HGB CONC 34.2 pg (28.0-36.0); MONOCYTE ABSOLUTE 0.5 Th/cmm (0.3-1.0); NEUTROPHILE ABSOLUTE 5.2 Th/cmm (1.8-8.0); PLATELET COUNT 205 Th/cmm (150-400); RED BLOOD COUNT 4.43 Mil/cmm (4.30-5.70); RED CELL DISTRIBUTION WIDTH 12.5 % (11.5-20.0); WHITE BLOOD COUNT 7.2 Th/cmm (4.8-10.8)
[2019-02-28 05:16] LABS: ALB/GLOB RATIO 1.3 (1.0-1.8); ALBUMIN 3.7 gm/dL (4.2-5.5); ALKALINE PHOSPHATASE 66 U/L (34-104); ANION GAP 12.7 (7.0-16.0); BILIRUBIN,TOTAL 0.5 mg/dL (0.3-1.0); BUN - UREA NITROGEN 9 mg/dL (7-25); CALCIUM SERUM 8.8 mg/dL (8.6-10.3); CARBON DIOXIDE 20.8 mEq/L (21.0-31.0); CHLORIDE 105 mEq/L (98-107); CREATININE - SERUM 0.7 mg/dL (0.7-1.3); GFR AFRICAN-AMERICAN > 60.0 ml/min (>90); GFR NON AFRICAN-AMERICAN > 60.0 ml/min; GLUCOSE 88 mg/dL (70-105); POTASSIUM SERUM 3.5 mEq/L (3.5-5.1); SGOT 19 U/L (13-39); SGPT/ALT 10 U/L (7-52); SODIUM SERUM 135 mEq/L (136-145); TOTAL PROTEIN,SERUM 6.5 gm/dL (6.0-8.3)
[2019-02-28] MEDS: Levothyroxine 0.1 Mg Tab GT SCH (06:49)
[2019-02-28] MEDS: Lactobacillus Rhamnosus GG 15 Billion CFU CAP.SPRINK PO SCH (08:18)
[2019-02-28] MEDS: Ferrous Sulfate 300 MG/5 ML UDC PO SCH ×3 (08:18→22:15)
--- NOTE | 2019-02-28 08:58 | General Progress Note ---
Subjective - Review of Systems Service Date: 03/01/19 Subjective: Patient non verbal Objective - Results Result Diagrams: 02/28/19 04:30 02/28/19 04:30 Recent Labs: Laboratory Last Values WBC 7.2 Th/cmm (4.8-10.8) 02/28/19 04:30 RBC 4.43 Mil/cmm (4.30-5.70) 02/28/19 04:30 Hgb 13.1 gm/dL (12-16) 02/28/19 04:30 Hct 38.3 % (41.0-60) L 02/28/19 04:30 MCV 86.5 fl (80-99) 02/28/19 04:30 MCH 29.6 pg (26.0-30.0) 02/28/19 04:30 MCHC Differential 34.2 pg (28.0-36.0) 02/28/19 04:30 RDW 12.5 % (11.5-20.0) 02/28/19 04:30 Plt Count 205 Th/cmm (150-400) 02/28/19 04:30 MPV 9.4 fl 02/28/19 04:30 Add Manual Diff YES 02/25/19 05:18 Neutrophils % 72.8 % (40.0-80.0) 02/28/19 04:30 Band Neutrophils % 0 % (0-10) 02/25/19 05:18 Lymphocytes % 18.8 % (20.0-50.0) L 02/28/19 04:30 Monocytes % 6.6 % (2.0-10.0) 02/28/19 04:30 Eosinophils % 1.7 % (0.0-5.0) 02/28/19 04:30 Basophils % 0.1 % (0.0-2.0) 02/28/19 04:30 Neutrophils (Manual) 86 % (40-80) H 02/25/19 05:18 Lymphocytes 12 % (20-50) L 02/25/19 05:18 Monocytes 1 % (2-10) L 02/25/19 05:18 Eosinophils 1 % (0-5) 02/25/19 05:18 Basophils 0 % (0-3) 02/25/19 05:18 Platelet Estimate ADEQUATE (NORMAL) 02/25/19 05:18 PT 13.9 SECONDS (9.5-11.5) H 02/28/19 04:30 INR 1.36 (0.5-1.4) 02/28/19 04:30 Sodium 135 mEq/L (136-145) L 02/28/19 04:30 Potassium 3.5 mEq/L (3.5-5.1) 02/28/19 04:30 Chloride 105 mEq/L (98-107) 02/28/19 04:30 Carbon Dioxide 20.8 mEq/L (21.0-31.0) L 02/28/19 04:30 Anion Gap 12.7 (7.0-16.0) 02/28/19 04:30 BUN 9 mg/dL (7-25) 02/28/19 04:30 Creatinine 0.7 mg/dL (0.7-1.3) 02/28/19 04:30 Est GFR ( Amer) > 60.0 ml/min (>90) 02/28/19 04:30 Est GFR (Non-Af Amer) > 60.0 ml/min 02/28/19 04:30 BUN/Creatinine Ratio 12.9 02/28/19 04:30 Glucose 88 mg/dL (70-105) 02/28/19 04:30 POC Glucose 119 MG/DL (70 - 105) H 02/25/19 07:50 Calcium 8.8 mg/dL (8.6-10.3) 02/28/19 04:30 Total Bilirubin 0.5 mg/dL (0.3-1.0) 02/28/19 04:30 AST 19 U/L (13-39) 02/28/19 04:30 ALT 10 U/L (7-52) 02/28/19 04:30 Alkaline Phosphatase 66 U/L (34-104) 02/28/19 04:30 Total Protein 6.5 gm/dL (6.0-8.3) 02/28/19 04:30 Albumin 3.7 gm/dL (4.2-5.5) L 02/28/19 04:30 Globulin 2.8 gm/dL 02/28/19 04:30 Albumin/Globulin Ratio 1.3 (1.0-1.8) 02/28/19 04:30 Amylase 48 U/L (29-103) 02/23/19 13:10 Lipase 19 U/L (11-82) 02/23/19 13:10 - Physical Exam Vitals and I&O: Vital Signs Temp 98.3 F 02/28/19 07:38 Pulse 60 02/28/19 07:38 Resp 17 02/28/19 07:38 BP 117/74 02/28/19 07:38 Pulse Ox 98 02/28/19 07:38 Intake & Output 02/27/19 02/28/19 02/28/19 18:59 06:59 18:59 Intake Total 50 100 Balance 50 100 Weight (lbs) 63.503 kg Intake: Intake, IV Amount 50 100 ceFAZolin 1 gm In Sodium 50 100 Chloride 0.9% 50 ml @ 100 mls/hr IV Q8HR [facility] Rx#: [id number] Oral 0 Other: # Voids 3 # Bowel Movements 0 Weight Source Bedscale Active Medications: Current Medications Acetaminophen (Tylenol) 650 mg GT Q4HR PRN PRN Reason: mild pain or temp >100 Stop: 04/25/19 09:06 Bisacodyl (Dulcolax 10 Mg Supp) 10 mg RC DAILY PRN PRN Reason: Constipation Stop: 04/25/19 09:06 Ferrous Sulfate (Iron) 300 mg PO TID [facility] Stop: 04/25/19 13:59 Last Admin: 02/28/19 08:18 Dose: Not Given Cefazolin Sodium 1 gm/ Sodium (Chloride) 50 mls @ 100 mls/hr IV Q8HR [facility] Stop: 04/26/19 08:59 Last Infusion: 02/28/19 05:25 Dose: Infused Dextrose/Sodium Chloride (D5-0.9%Ns) 1,000 mls @ 100 mls/hr IV .Q10H [facility] Stop: 04/26/19 17:59 Last Admin: 02/27/19 04:00 Dose: 100 mls/hr Lactobacillus Rhamnosus (Culturelle 15b) 1 each PO DAILY [facility] Stop: 04/27/19 08:59 Last Admin: 02/28/19 08:18 Dose: Not Given Levothyroxine Sodium (Synthroid) 0.1 mg GT QDAC [facility] Stop: 04/26/19 07:29 Last Admin: 02/28/19 06:49 Dose: Not Given Miscellaneous (Probiotic Screen) 1 ea MC PRN PRN PRN Reason: PROTOCOL Stop: 04/26/19 13:07 Pantoprazole Sodium (Protonix) 40 mg IVP QDAC [facility] Stop: 04/26/19 08:44 Last Admin: 02/28/19 06:53 Dose: 40 mg General: Alert, No acute distress HEENT: Atraumatic, PERRLA Neck: Supple Cardiovascular: Regular rate Lungs: Clear to auscultation Abdomen: Bowel sounds, Soft, Other (stoma is clean) Extremities: Other (No edema) Neurological: Normal gait Skin: Other (Warm and dry) Psych/Mental Status: Other (Confused) - Procedures Procedures: Procedures Procedure Code Date CHANGE FEEDING DEVICE IN UP INTEST TRACT, PILE DRIVING SUPERVISOR APPROACH [id number] 08/26/16 CHANGE GASTROSTOMY TUBE 89167 08/26/16 INSPECTION OF UPPER INTESTINAL TRACT, ENDO [id number] 02/23/19 Assessment/Plan - Assessment Assessment: Patient is sleeping but arousable, in no acute distress. Dx: G-tube malfunction , HTN, GERD, Hypothyroidism, Dementia. - Plan Plan: Patient in IV NS/D5, NPO, G-tube was not placed due to esophagitis and constricture of esophagus, consult with surgery recommended to place to PEG. GI will ordered a abdominal CT to a better evaluation of esophagitis and esophageal stricture. Patient will have surgery Today. Nutritional Asmnt/Malnutr-PDOC - Dietary Evaluation Malnutrition Findings (Please click <Entered> for more info): Nutritional Asmnt/Malnutrition Start: 02/24/19 16: 30 Text: Status: Complete Freq: Protocol: Document 02/24/19 16:31 ANTOINETTE (Rec: 02/24/19 16:34 ANTOINETTE [email or web address]) Nutritional Asmnt/Malnutrition Patient General Information Nutritional Screening High Risk Diagnosis G TUBE MALFUNCTION Pertinent Medical Hx/Surgical Hx GERD, DEMENTIA, PSYCHOSIS, CAD , HTN, HYPOTHYROIDISM, MUSCLE ATROPHY Subjective Information PT IS A 58 YEAR OLD MALE ADMITTED ON 02/23 D/T BROKEN G- TUBE. PEG WAS PULLED OUT BY PY AT [facility]. PT IS WAITING ON A GI CONSULT AND G-TUBE REPLACEMENT. HT: 52 WT: 124 LB (56.36 KG) BMI: 22.68 (NORMAL) GI: WNL, SOFT, LARGE BM: NOT NOTED I/O: NOT NOTED SKIN: WNL, ROLLY, DRY, INTACT AMINA: 13 DIET ORDER: NPO ESTIMATED ENERGY NEEDS: (ADULT , CBW) 3474-8308 KCALS (25-30 KCALS/ KG) 45-51 G PRO (0.8-0.9 G/KG) 5275-7800 ML (25-30 ML/KG) Current Diet Order/ Nutrition Support NPO Pertinent Medications DULCOLAX (PRN), D5-0.9% NS, PEPCID, FERROUS SULFATE, SYNTHROID Pertinent Labs 02/23: NA 132, ALB 4.1 Nutritional Hx/Data Height 1.57 m Height (Calculated Centimeters) 157.5 Current Weight (lbs) 56.245 kg Weight (Calculated Kilograms) 56.2 Weight (Calculated Grams) 08494.5 [place] Body Weight 118 LB (53.64KG) % [place] Body Weight 105 Body Mass Index (BMI) 22.6 Weight Status Approriate GI Symptoms Last BM NOT NOTED Skin Integrity/Comment: WNL, ROLLY, DRY, INTACT AMINA: 13 Estimated Nutritional Goals BEE in Kcals: Using Current wt Calories/Kcals/Kg 25-30 Kcals Calculated 2395-8067 Protein: Using Current wt Protein g/k.8-0.9 Protein Calculated 45-51 Fluid: ml 5200-9456 ML (25-30 ML/KG) Nutritional Problem 1. Problem Problem INADEQUATE ENERGY INTAKE Etiology R/T GI CONSULT AND G-TUBE REPLACEMENT Signs/Symptoms: AEB NPO STATUS Malnutrition Related to Morbid Obesity Malnutrition related to morbid obesity No Intervention/Recommendation Comments 1. CONTINUE NPO STATUS MEDICALLY APPROPRIATE. 2. ADVANCE G-TUBE FEEDING ONCE MEDICALLY APPROPRIATE. Expected Outcomes/Goals Expected Outcomes/Goals 1. MONITOR NPO STATUS, WT, NUTRITION RELATED LABS AND SKIN INTEGRITY. 2. F/U HIGH RISK IN 2-3 DAYS, 02/26-02/27
[2019-02-28] MEDS ORDERED: fentaNYL Citrate 100 mcg/2mL Vial ONE ×2 (10:22→10:23)
[2019-02-28] MEDS ORDERED: Propofol **SURGERY USE ONLY** 20 ML IV ONE (10:24)
[2019-02-28] MEDS ORDERED: Neostigmine 10mg/10mL Vial ONE (10:24)
[2019-02-28] MEDS ORDERED: Dexamethasone Sodium Phos 4 mg/mL Vial ONE ×2 (11:25)
[2019-02-28] MEDS ORDERED: Meperidine 50 mg/mL 1mL Syr ONE (12:54)
[2019-02-28 13:15] LABS: HEMOGLOBIN 14.9 gm/dL (12-16); MEAN CELL VOLUME 88.9 fl (80-99); MEAN CORPUSCULAR HEMOGLOBIN 29.9 pg (26.0-30.0); MEAN CORPUSCULAR HGB CONC 33.6 pg (28.0-36.0); PLATELET COUNT 246 Th/cmm (150-400); RED CELL DISTRIBUTION WIDTH 12.7 % (11.5-20.0); WHITE BLOOD COUNT 11.6 Th/cmm (4.8-10.8)
[2019-02-28 13:16] LABS: HEMATOCRIT 44.4 % (41.0-60)
[2019-02-28 13:28] LABS: ALB/GLOB RATIO 1.3 (1.0-1.8); ALBUMIN 3.8 gm/dL (4.2-5.5); ALKALINE PHOSPHATASE 71 U/L (34-104); ANION GAP 15.8 (7.0-16.0); BILIRUBIN,TOTAL 0.6 mg/dL (0.3-1.0); BUN - UREA NITROGEN 8 mg/dL (7-25); CARBON DIOXIDE 18.6 mEq/L (21.0-31.0); CHLORIDE 103 mEq/L (98-107); CREATININE - SERUM 0.7 mg/dL (0.7-1.3); GFR AFRICAN-AMERICAN > 60.0 ml/min (>90); GFR NON AFRICAN-AMERICAN > 60.0 ml/min; GLUCOSE 146 mg/dL (70-105); POTASSIUM SERUM 3.4 mEq/L (3.5-5.1); SGOT 21 U/L (13-39); SGPT/ALT 10 U/L (7-52); SODIUM SERUM 134 mEq/L (136-145); TOTAL PROTEIN,SERUM 6.8 gm/dL (6.0-8.3)
[2019-02-28 13:52] LABS: BAND NEUTROPHILE 0 % (0-10); BASOPHIL 0 % (0-3); EOSINOPHIL 0 % (0-5); LYMPHOCYTE 5 % (20-50); MONOCYTE 2 % (2-10); NEUTROPHILS 93 % (40-80)
--- NOTE | 2019-02-28 14:22 | GI Progress Note ---
Subjective - Review of Systems Subjective: HAD SURGICAL GT PLACED GI OBJECTIVE - Results Result Diagrams: 02/28/19 13:00 02/28/19 13:00 Recent Labs: Laboratory Last Values WBC 11.6 Th/cmm (4.8-10.8) H 02/28/19 13:00 RBC 5.00 Mil/cmm (4.30-5.70) 02/28/19 13:00 Hgb 14.9 gm/dL (12-16) 02/28/19 13:00 Hct 44.4 % (41.0-60) D 02/28/19 13:00 MCV 88.9 fl (80-99) 02/28/19 13:00 MCH 29.9 pg (26.0-30.0) 02/28/19 13:00 MCHC Differential 33.6 pg (28.0-36.0) 02/28/19 13:00 RDW 12.7 % (11.5-20.0) 02/28/19 13:00 Plt Count 246 Th/cmm (150-400) 02/28/19 13:00 MPV 8.7 fl 02/28/19 13:00 Add Manual Diff YES 02/28/19 13:00 Neutrophils % HEAVY DUTY CUSTODIAN 02/28/19 13:00 Band Neutrophils % 0 % (0-10) 02/28/19 13:00 Lymphocytes % HEAVY DUTY CUSTODIAN 02/28/19 13:00 Monocytes % HEAVY DUTY CUSTODIAN 02/28/19 13:00 Eosinophils % HEAVY DUTY CUSTODIAN 02/28/19 13:00 Basophils % HEAVY DUTY CUSTODIAN 02/28/19 13:00 Neutrophils (Manual) 93 % (40-80) H 02/28/19 13:00 Lymphocytes 5 % (20-50) L 02/28/19 13:00 Monocytes 2 % (2-10) 02/28/19 13:00 Eosinophils 0 % (0-5) 02/28/19 13:00 Basophils 0 % (0-3) 02/28/19 13:00 Platelet Estimate ADEQUATE (NORMAL) 02/25/19 05:18 PT 13.9 SECONDS (9.5-11.5) H 02/28/19 04:30 INR 1.36 (0.5-1.4) 02/28/19 04:30 Sodium 134 mEq/L (136-145) L 02/28/19 13:00 Potassium 3.4 mEq/L (3.5-5.1) L 02/28/19 13:00 Chloride 103 mEq/L (98-107) 02/28/19 13:00 Carbon Dioxide 18.6 mEq/L (21.0-31.0) L 02/28/19 13:00 Anion Gap 15.8 (7.0-16.0) 02/28/19 13:00 BUN 8 mg/dL (7-25) 02/28/19 13:00 Creatinine 0.7 mg/dL (0.7-1.3) 02/28/19 13:00 Est GFR ( Amer) > 60.0 ml/min (>90) 02/28/19 13:00 Est GFR (Non-Af Amer) > 60.0 ml/min 02/28/19 13:00 BUN/Creatinine Ratio 11.4 02/28/19 13:00 Glucose 146 mg/dL (70-105) H 02/28/19 13:00 POC Glucose 119 MG/DL (70 - 105) H 02/25/19 07:50 Calcium 9.0 mg/dL (8.6-10.3) 02/28/19 13:00 Total Bilirubin 0.6 mg/dL (0.3-1.0) 02/28/19 13:00 AST 21 U/L (13-39) 02/28/19 13:00 ALT 10 U/L (7-52) 02/28/19 13:00 Alkaline Phosphatase 71 U/L (34-104) 02/28/19 13:00 Total Protein 6.8 gm/dL (6.0-8.3) 02/28/19 13:00 Albumin 3.8 gm/dL (4.2-5.5) L 02/28/19 13:00 Globulin 3.0 gm/dL 02/28/19 13:00 Albumin/Globulin Ratio 1.3 (1.0-1.8) 02/28/19 13:00 Amylase 48 U/L (29-103) 02/23/19 13:10 Lipase 19 U/L (11-82) 02/23/19 13:10 TSH 5.42 uIU/ml (0.34-5.60) 02/28/19 04:30 - Physical Exam Vitals and I&O: Vital Signs Temp 98.3 F 02/28/19 07:38 Pulse 99 02/28/19 12:40 Resp 18 02/28/19 08:00 BP 117/74 02/28/19 07:38 Pulse Ox 100 02/28/19 12:40 Intake & Output 02/27/19 02/28/19 02/28/19 18:59 06:59 18:59 Intake Total 50 100 Balance 50 100 Weight (lbs) 63.503 kg Intake: Intake, IV Amount 50 100 ceFAZolin 1 gm In Sodium 50 100 Chloride 0.9% 50 ml @ 100 mls/hr IV Q8HR [facility] Rx#: [id number] Oral 0 Other: # Voids 3 # Bowel Movements 0 Weight Source Bedscale Active Medications: Current Medications Acetaminophen (Tylenol) 650 mg GT Q4HR PRN PRN Reason: mild pain or temp >100 Stop: 04/25/19 09:06 Bisacodyl (Dulcolax 10 Mg Supp) 10 mg RC DAILY PRN PRN Reason: Constipation Stop: 04/25/19 09:06 Ferrous Sulfate (Iron) 300 mg PO TID [facility] Stop: 04/25/19 13:59 Last Admin: 02/28/19 08:18 Dose: Not Given Cefazolin Sodium 1 gm/ Sodium (Chloride) 50 mls @ 100 mls/hr IV Q8HR [facility] Stop: 04/26/19 08:59 Last Infusion: 02/28/19 05:25 Dose: Infused Dextrose/Sodium Chloride (D5-0.9%Ns) 1,000 mls @ 100 mls/hr IV .Q10H [facility] Stop: 04/26/19 17:59 Last Admin: 02/27/19 04:00 Dose: 100 mls/hr Lactobacillus Rhamnosus (Culturelle 15b) 1 each PO DAILY [facility] Stop: 04/27/19 08:59 Last Admin: 02/28/19 08:18 Dose: Not Given Levothyroxine Sodium (Synthroid) 0.1 mg GT QDAC [facility] Stop: 04/26/19 07:29 Last Admin: 02/28/19 06:49 Dose: Not Given Lorazepam (Ativan) 1 mg IVP Q8HR PRN; Protocol PRN Reason: Agitation Stop: 04/29/19 13:26 Miscellaneous (Probiotic Screen) 1 ea MC PRN PRN PRN Reason: PROTOCOL Stop: 04/26/19 13:07 Pantoprazole Sodium (Protonix) 40 mg IVP QDAC [facility] Stop: 04/26/19 08:44 Last Admin: 02/28/19 06:53 Dose: 40 mg - Procedures Procedures: Procedures Procedure Code Date CHANGE FEEDING DEVICE IN UP INTEST TRACT, APPEALS SPECIALIST APPROACH [id number] 08/26/16 CHANGE GASTROSTOMY TUBE 51810 08/26/16 INSPECTION OF UPPER INTESTINAL TRACT, ENDO [id number] 02/23/19 Assessment/Plan - Assessment Assessment: 58 YO MALE WITH DYSPHAGIA AND FOREIGN OBJECT IN THE STOMACH PRESUMED TO BE FROM THE INTERNAL PORTION OF G TUBE PT HAD SURGERY AND NEW GT PLACED EGD REVEALED 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
--- NOTE | 2019-02-28 17:11 | Operative Report ---
DATE OF SURGERY: PREOPERATIVE DIAGNOSIS: The patient presents with a G-tube malfunction. POSTOPERATIVE DIAGNOSIS: G-tube malfunction. PROCEDURE PERFORMED: Exploratory laparotomy, removal of gastric foreign body, new G-tube placement and removal of old G-tube ostomy, fascia with flap closure. ANESTHESIA: This was done under general anesthesia with Dr. Echeverria. DESCRIPTION OF PROCEDURE: Under general anesthesia, the patient was prepped and draped in the usual sterile fashion. Dr. Echeverria had to intubate with special attention to the old tracheostomy site with which somehow remained partially opened, but after intubation, the patient had good ventilation and at this time because of his autism or mental dysfunction, the patient was brought to ICU to protect from harming himself. At this point, the primary was requested to have electronic data processing auditor to help in the extubation process with the temporary tube positioning and retrieval. After opening the peritoneal cavity, we found the stomach. We did some LigaSure ligation of the mesentery to uncover the stomach. We found the stomach fistulous tract to the abdominal wall. We removed the abdominal wall fistulous tract and the fascial layer, which was midline and then we removed also partial anterior stomach wall and then reclosed after placing a new G-tube, securing it making sure the balloon was functional and flushing the fluid through after we closed the enterotomy of the stomach and securing it to the abdominal wall with 2-0 and 0 silk suture. We then secured at the end of closure with double stranded PDS suture, 2-0 Vicryl and then 4-0 Vicryl subcuticular stitch. Forpost operative pain management we used about 20 mL of Marcaine 0.25% with epinephrine and we secured the G-tube to the skin with silk suture on a four quadrant basis . The patient tolerated procedure well. All instrument, sponge count, needle counts were correct and while we had the balloon insufflated, we checked for flushing the stomach and there was no problem, no leak. JOB# [id number] YASEMIN
[2019-02-28] MEDS: Chlorhexidine Gluconate 0.12% 15mL Mouthwash MM SCH (20:37)
[2019-03-01] MEDS: ceFAZolin 1 GM in Sodium Chloride 0.9% 50 ML IV SCH ×3 (04:17→20:42)
[2019-03-01 05:16] LABS: % BASOPHILS 0.1 % (0.0-2.0); % EOSINOPHILS 0.2 % (0.0-5.0); % LYMPHOCYTES 10.1 % (20.0-50.0); % MONOCYTES 9.5 % (2.0-10.0); % NEUTROPHILS 80.1 % (40.0-80.0); HEMOGLOBIN 12.9 gm/dL (12-16); LYMPHOCYTE ABSOLUTE 0.9 Th/cmm (1.5-3.0); MEAN CELL VOLUME 88.3 fl (80-99); MEAN CORPUSCULAR HEMOGLOBIN 29.7 pg (26.0-30.0); MEAN CORPUSCULAR HGB CONC 33.7 pg (28.0-36.0); MONOCYTE ABSOLUTE 0.9 Th/cmm (0.3-1.0); NEUTROPHILE ABSOLUTE 7.4 Th/cmm (1.8-8.0); PLATELET COUNT 237 Th/cmm (150-400); RED BLOOD COUNT 4.33 Mil/cmm (4.30-5.70); RED CELL DISTRIBUTION WIDTH 12.9 % (11.5-20.0); WHITE BLOOD COUNT 9.2 Th/cmm (4.8-10.8)
[2019-03-01 05:37] LABS: ALB/GLOB RATIO 1.3 (1.0-1.8); ALBUMIN 3.4 gm/dL (4.2-5.5); ALKALINE PHOSPHATASE 67 U/L (34-104); ANION GAP 13.4 (7.0-16.0); BILIRUBIN,TOTAL 0.5 mg/dL (0.3-1.0); BUN - UREA NITROGEN 6 mg/dL (7-25); CALCIUM SERUM 8.6 mg/dL (8.6-10.3); CHLORIDE 107 mEq/L (98-107); CREATININE - SERUM 0.6 mg/dL (0.7-1.3); GFR AFRICAN-AMERICAN > 60.0 ml/min (>90); GFR NON AFRICAN-AMERICAN > 60.0 ml/min; GLUCOSE 143 mg/dL (70-105); POTASSIUM SERUM 3.4 mEq/L (3.5-5.1); SGOT 29 U/L (13-39); SGPT/ALT 10 U/L (7-52); SODIUM SERUM 138 mEq/L (136-145)
[2019-03-01 06:33] LABS: HEMATOCRIT 38.2 % (41.0-60)
[2019-03-01] MEDS: Levothyroxine 0.1 Mg Tab GT SCH (07:30)
[2019-03-01] MEDS: Chlorhexidine Gluconate 0.12% 15mL Mouthwash MM SCH ×2 (08:00→20:12)
--- NOTE | 2019-03-01 08:09 | Diagnostic Imaging Report ---
Portable chest x-ray HISTORY: Shortness of breath, endotracheal tube placement There is a very poor inspiration. Heart size difficult to assess. Suggestion of increased density in the left lower lobe with partial obscuration the left hemidiaphragm. This may be related to radiographic technique. Follow-up recommended. Questionable faint nodular density in the right perihilar region. Its may represent superimposition of interstitial lung markings. Again, a follow-up radiograph would provide for further assessment. Endotracheal tube tip is approximately 4.0 cm above the familia. IMPRESSION: 1. Poor inspiration associated with suboptimal radiographic technique. 2. Questionable nodular density in the right perihilar region. This may represent superimposition of interstitial lung markings. A follow-up radiograph is recommended 3. Questionable density left lower lobe. Again, this may be related to the radiographic technique. Infiltrate is difficult to exclude. Clinical correlation and follow-up recommended. 4. Endotracheal tube placement as noted above
[2019-03-01] MEDS ORDERED: KCL 20mEq/100mL Premix 20 MEQ/100 ML PIGGYBACK IV ONE (09:07)
--- NOTE | 2019-03-01 09:14 | General Progress Note ---
Subjective - Review of Systems Service Date: 03/01/19 Subjective: Patient non verbal, intubated Objective - Results Result Diagrams: 03/01/19 04:05 03/01/19 04:05 Recent Labs: Laboratory Last Values WBC 9.2 Th/cmm (4.8-10.8) 03/01/19 04:05 RBC 4.33 Mil/cmm (4.30-5.70) 03/01/19 04:05 Hgb 12.9 gm/dL (12-16) 03/01/19 04:05 Hct 38.2 % (41.0-60) L D 03/01/19 04:05 MCV 88.3 fl (80-99) 03/01/19 04:05 MCH 29.7 pg (26.0-30.0) 03/01/19 04:05 MCHC Differential 33.7 pg (28.0-36.0) 03/01/19 04:05 RDW 12.9 % (11.5-20.0) 03/01/19 04:05 Plt Count 237 Th/cmm (150-400) 03/01/19 04:05 MPV 9.4 fl 03/01/19 04:05 Add Manual Diff YES 02/28/19 13:00 Neutrophils % 80.1 % (40.0-80.0) H 03/01/19 04:05 Band Neutrophils % 0 % (0-10) 02/28/19 13:00 Lymphocytes % 10.1 % (20.0-50.0) L 03/01/19 04:05 Monocytes % 9.5 % (2.0-10.0) 03/01/19 04:05 Eosinophils % 0.2 % (0.0-5.0) 03/01/19 04:05 Basophils % 0.1 % (0.0-2.0) 03/01/19 04:05 Neutrophils (Manual) 93 % (40-80) H 02/28/19 13:00 Lymphocytes 5 % (20-50) L 02/28/19 13:00 Monocytes 2 % (2-10) 02/28/19 13:00 Eosinophils 0 % (0-5) 02/28/19 13:00 Basophils 0 % (0-3) 02/28/19 13:00 Platelet Estimate ADEQUATE (NORMAL) 02/25/19 05:18 PT 13.9 SECONDS (9.5-11.5) H 02/28/19 04:30 INR 1.36 (0.5-1.4) 02/28/19 04:30 Sodium 138 mEq/L (136-145) 03/01/19 04:05 Potassium 3.4 mEq/L (3.5-5.1) L 03/01/19 04:05 Chloride 107 mEq/L (98-107) 03/01/19 04:05 Carbon Dioxide 21.0 mEq/L (21.0-31.0) 03/01/19 04:05 Anion Gap 13.4 (7.0-16.0) 03/01/19 04:05 BUN 6 mg/dL (7-25) L 03/01/19 04:05 Creatinine 0.6 mg/dL (0.7-1.3) L 03/01/19 04:05 Est GFR ( Amer) > 60.0 ml/min (>90) 03/01/19 04:05 Est GFR (Non-Af Amer) > 60.0 ml/min 03/01/19 04:05 BUN/Creatinine Ratio 10.0 03/01/19 04:05 Glucose 143 mg/dL (70-105) H 03/01/19 04:05 POC Glucose 119 MG/DL (70 - 105) H 02/25/19 07:50 Calcium 8.6 mg/dL (8.6-10.3) 03/01/19 04:05 Total Bilirubin 0.5 mg/dL (0.3-1.0) 03/01/19 04:05 AST 29 U/L (13-39) 03/01/19 04:05 ALT 10 U/L (7-52) 03/01/19 04:05 Alkaline Phosphatase 67 U/L (34-104) 03/01/19 04:05 Total Protein 6.0 gm/dL (6.0-8.3) 03/01/19 04:05 Albumin 3.4 gm/dL (4.2-5.5) L 03/01/19 04:05 Globulin 2.6 gm/dL 03/01/19 04:05 Albumin/Globulin Ratio 1.3 (1.0-1.8) 03/01/19 04:05 Amylase 48 U/L (29-103) 02/23/19 13:10 Lipase 19 U/L (11-82) 02/23/19 13:10 TSH 5.42 uIU/ml (0.34-5.60) 02/28/19 04:30 - Physical Exam Vitals and I&O: Vital Signs Temp 97.9 F 03/01/19 07:00 Pulse 89 03/01/19 08:55 Resp 12 03/01/19 07:00 BP 127/84 03/01/19 07:00 Pulse Ox 96 03/01/19 08:55 Intake & Output 02/28/19 03/01/19 03/01/19 18:59 06:59 18:59 Intake Total 100 100 Balance 100 100 Weight (lbs) 63.503 kg 64.212 kg Intake: Intake, IV Amount 50 100 ceFAZolin 1 gm In Sodium 50 100 Chloride 0.9% 50 ml @ 100 mls/hr IV Q8HR [facility] Rx#: [id number] Oral 0 Other 50 Other: # Voids 2 6 # Bowel Movements 0 0 Weight Source Bedscale Bedscale Active Medications: Current Medications Acetaminophen (Tylenol) 650 mg GT Q4HR PRN PRN Reason: mild pain or temp >100 Stop: 04/25/19 09:06 Bisacodyl (Dulcolax 10 Mg Supp) 10 mg RC DAILY PRN PRN Reason: Constipation Stop: 04/25/19 09:06 Chlorhexidine Gluconate (Peridex) 15 ml MM 0800,1999 [facility] Stop: 04/29/19 19:59 Last Admin: 02/28/19 20:37 Dose: 15 ml Ferrous Sulfate (Iron) 300 mg PO TID [facility] Stop: 04/25/19 13:59 Last Admin: 02/28/19 22:15 Dose: Not Given Cefazolin Sodium 1 gm/ Sodium (Chloride) 50 mls @ 100 mls/hr IV Q8HR [facility] Stop: 04/26/19 08:59 Last Infusion: 03/01/19 04:50 Dose: Infused Dextrose/Sodium Chloride (D5-0.9%Ns) 1,000 mls @ 100 mls/hr IV .Q10H [facility] Stop: 04/26/19 17:59 Last Admin: 02/27/19 04:00 Dose: 100 mls/hr Potassium Chloride (Potassium Chloride) 20 meq in 100 mls @ 50 mls/hr IV X1 ONE Stop: 03/01/19 11:06 Lactobacillus Rhamnosus (Culturelle 15b) 1 each PO DAILY [facility] Stop: 04/27/19 08:59 Last Admin: 02/28/19 08:18 Dose: Not Given Levothyroxine Sodium (Synthroid) 0.1 mg GT QDAC [facility] Stop: 04/26/19 07:29 Last Admin: 02/28/19 06:49 Dose: Not Given Lorazepam (Ativan) 1 mg IVP Q8HR PRN; Protocol PRN Reason: Agitation Stop: 04/29/19 13:26 Last Admin: 03/01/19 06:15 Dose: 1 mg Miscellaneous (Probiotic Screen) 1 ea MC PRN PRN PRN Reason: PROTOCOL Stop: 04/26/19 13:07 Pantoprazole Sodium (Protonix) 40 mg IVP QDAC [facility] Stop: 04/26/19 08:44 Last Admin: 02/28/19 06:53 Dose: 40 mg General: Alert, No acute distress HEENT: Atraumatic, PERRLA Neck: Supple Cardiovascular: Regular rate Lungs: Clear to auscultation Abdomen: Bowel sounds, Soft, Other (Abdominal surgical wound clean, PEG in place. ) Extremities: Other (No edema) Neurological: Normal gait Skin: Other (Warm and dry) Psych/Mental Status: Other (Confused) - Procedures Procedures: Procedures Procedure Code Date CHANGE FEEDING DEVICE IN UP INTEST TRACT, ORGANIC CHEMISTRY PROFESSOR APPROACH [id number] 08/26/16 CHANGE GASTROSTOMY TUBE 74546 08/26/16 INSPECTION OF UPPER INTESTINAL TRACT, ENDO [id number] 02/23/19 Assessment/Plan - Assessment Assessment: Patient is sleeping, Intubated. in no acute distress. Dx: G-tube malfunction, HTN, GERD, Hypothyroidism, Dementia. - Plan Plan: Patient in IV NS/D5, NPO, G-tube was not placed due to esophagitis and constricture of esophagus. PEG placed. Patient had surgery yesterday. Awaiting Pulmonology eval for extubation. Will continue to monitor. Nutritional Asmnt/Malnutr-PDOC - Dietary Evaluation Malnutrition Findings (Please click <Entered> for more info): Nutritional Asmnt/Malnutrition Start: 02/24/19 16: 30 Text: Status: Complete Freq: Protocol: Document 07/18/19 16:31 ANTOINETTE (Rec: 02/24/19 16:34 ANTOINETTE [email or web address]) Nutritional Asmnt/Malnutrition Patient General Information Nutritional Screening High Risk Diagnosis G TUBE MALFUNCTION Pertinent Medical Hx/Surgical Hx GERD, DEMENTIA, PSYCHOSIS, CAD , HTN, HYPOTHYROIDISM, MUSCLE ATROPHY Subjective Information PT IS A 58 YEAR OLD MALE ADMITTED ON 02/23 D/T BROKEN G- TUBE. PEG WAS PULLED OUT BY PY AT [facility]. PT IS WAITING ON A GI CONSULT AND G-TUBE REPLACEMENT. HT: 52 WT: 124 LB (56.36 KG) BMI: 22.68 (NORMAL) GI: WNL, SOFT, LARGE BM: NOT NOTED I/O: NOT NOTED SKIN: WNL, ROLLY, DRY, INTACT AMINA: 13 DIET ORDER: NPO ESTIMATED ENERGY NEEDS: (ADULT , CBW) 8940-0519 KCALS (25-30 KCALS/ KG) 45-51 G PRO (0.8-0.9 G/KG) 5197-9148 ML (25-30 ML/KG) Current Diet Order/ Nutrition Support NPO Pertinent Medications DULCOLAX (PRN), D5-0.9% NS, PEPCID, FERROUS SULFATE, SYNTHROID Pertinent Labs 02/23: NA 132, ALB 4.1 Nutritional Hx/Data Height 1.57 m Height (Calculated Centimeters) 157.5 Current Weight (lbs) 56.245 kg Weight (Calculated Kilograms) 56.2 Weight (Calculated Grams) 40633.5 Delta Body Weight 118 LB (53.64KG) % Delta Body Weight 105 Body Mass Index (BMI) 22.6 Weight Status Approriate GI Symptoms Last BM NOT NOTED Skin Integrity/Comment: WNL, ROLLY, DRY, INTACT AMINA: 13 Estimated Nutritional Goals BEE in Kcals: Using Current wt Calories/Kcals/Kg 25-30 Kcals Calculated 9630-9957 Protein: Using Current wt Protein g/k.8-0.9 Protein Calculated 45-51 Fluid: ml 6769-1508 ML (25-30 ML/KG) Nutritional Problem 1. Problem Problem INADEQUATE ENERGY INTAKE Etiology R/T GI CONSULT AND G-TUBE REPLACEMENT Signs/Symptoms: AEB NPO STATUS Malnutrition Related to Morbid Obesity Malnutrition related to morbid obesity No Intervention/Recommendation Comments 1. CONTINUE NPO STATUS MEDICALLY APPROPRIATE. 2. ADVANCE G-TUBE FEEDING ONCE MEDICALLY APPROPRIATE. Expected Outcomes/Goals Expected Outcomes/Goals 1. MONITOR NPO STATUS, WT, NUTRITION RELATED LABS AND SKIN INTEGRITY. 2. F/U HIGH RISK IN 2-3 DAYS, 02/26-02/27
[2019-03-01] MEDS: Ferrous Sulfate 300 MG/5 ML UDC PO SCH ×3 (09:30→20:55)
[2019-03-01] MEDS: Lactobacillus Rhamnosus GG 15 Billion CFU CAP.SPRINK PO SCH (09:30)
[2019-03-01] MEDS ORDERED: Dextrose 50% 50 mL Abboject IVP PRN (11:18)
[2019-03-01] MEDS ORDERED: GLUCAGON HCl 1 MG KIT IM PRN (11:18)
[2019-03-01] MEDS: INSULIN LISPRO SLIDING SCALE 100 UNITS/ML UNIT SUBQ SCH ×2 (12:00→19:38)
--- NOTE | 2019-03-01 14:13 | GI Progress Note ---
Subjective - Review of Systems Subjective: HAD SURGICAL GT PLACED NO EVENTS GI OBJECTIVE - Results Result Diagrams: 03/01/19 04:05 03/01/19 04:05 Recent Labs: Laboratory Last Values WBC 9.2 Th/cmm (4.8-10.8) 03/01/19 04:05 RBC 4.33 Mil/cmm (4.30-5.70) 03/01/19 04:05 Hgb 12.9 gm/dL (12-16) 03/01/19 04:05 Hct 38.2 % (41.0-60) L D 03/01/19 04:05 MCV 88.3 fl (80-99) 03/01/19 04:05 MCH 29.7 pg (26.0-30.0) 03/01/19 04:05 MCHC Differential 33.7 pg (28.0-36.0) 03/01/19 04:05 RDW 12.9 % (11.5-20.0) 03/01/19 04:05 Plt Count 237 Th/cmm (150-400) 03/01/19 04:05 MPV 9.4 fl 03/01/19 04:05 Add Manual Diff YES 02/28/19 13:00 Neutrophils % 80.1 % (40.0-80.0) H 03/01/19 04:05 Band Neutrophils % 0 % (0-10) 02/28/19 13:00 Lymphocytes % 10.1 % (20.0-50.0) L 03/01/19 04:05 Monocytes % 9.5 % (2.0-10.0) 03/01/19 04:05 Eosinophils % 0.2 % (0.0-5.0) 03/01/19 04:05 Basophils % 0.1 % (0.0-2.0) 03/01/19 04:05 Neutrophils (Manual) 93 % (40-80) H 02/28/19 13:00 Lymphocytes 5 % (20-50) L 02/28/19 13:00 Monocytes 2 % (2-10) 02/28/19 13:00 Eosinophils 0 % (0-5) 02/28/19 13:00 Basophils 0 % (0-3) 02/28/19 13:00 Platelet Estimate ADEQUATE (NORMAL) 02/25/19 05:18 PT 13.9 SECONDS (9.5-11.5) H 02/28/19 04:30 INR 1.36 (0.5-1.4) 02/28/19 04:30 Sodium 138 mEq/L (136-145) 03/01/19 04:05 Potassium 3.4 mEq/L (3.5-5.1) L 03/01/19 04:05 Chloride 107 mEq/L (98-107) 03/01/19 04:05 Carbon Dioxide 21.0 mEq/L (21.0-31.0) 03/01/19 04:05 Anion Gap 13.4 (7.0-16.0) 03/01/19 04:05 BUN 6 mg/dL (7-25) L 03/01/19 04:05 Creatinine 0.6 mg/dL (0.7-1.3) L 03/01/19 04:05 Est GFR ( Amer) > 60.0 ml/min (>90) 03/01/19 04:05 Est GFR (Non-Af Amer) > 60.0 ml/min 03/01/19 04:05 BUN/Creatinine Ratio 10.0 03/01/19 04:05 Glucose 143 mg/dL (70-105) H 03/01/19 04:05 POC Glucose 116 MG/DL (70 - 105) H 03/01/19 12:18 Calcium 8.6 mg/dL (8.6-10.3) 03/01/19 04:05 Total Bilirubin 0.5 mg/dL (0.3-1.0) 03/01/19 04:05 AST 29 U/L (13-39) 03/01/19 04:05 ALT 10 U/L (7-52) 03/01/19 04:05 Alkaline Phosphatase 67 U/L (34-104) 03/01/19 04:05 Total Protein 6.0 gm/dL (6.0-8.3) 03/01/19 04:05 Albumin 3.4 gm/dL (4.2-5.5) L 03/01/19 04:05 Globulin 2.6 gm/dL 03/01/19 04:05 Albumin/Globulin Ratio 1.3 (1.0-1.8) 03/01/19 04:05 Amylase 48 U/L (29-103) 02/23/19 13:10 Lipase 19 U/L (11-82) 02/23/19 13:10 TSH 5.42 uIU/ml (0.34-5.60) 02/28/19 04:30 - Physical Exam Vitals and I&O: Vital Signs Temp 97.9 F 03/01/19 11:00 Pulse 81 03/01/19 13:00 Resp 12 03/01/19 11:00 BP 117/79 03/01/19 11:00 Pulse Ox 96 03/01/19 13:00 Intake & Output 02/28/19 03/01/19 03/01/19 18:59 06:59 18:59 Intake Total 100 100 Balance 100 100 Weight (lbs) 63.503 kg 64.212 kg Intake: Intake, IV Amount 50 100 ceFAZolin 1 gm In Sodium 50 100 Chloride 0.9% 50 ml @ 100 mls/hr IV Q8HR [facility] Rx#: [id number] Oral 0 Other 50 Other: # Voids 2 6 # Bowel Movements 0 0 Weight Source Bedscale Bedscale Active Medications: Current Medications Acetaminophen (Tylenol) 650 mg GT Q4HR PRN PRN Reason: mild pain or temp >100 Stop: 04/25/19 09:06 Bisacodyl (Dulcolax 10 Mg Supp) 10 mg RC DAILY PRN PRN Reason: Constipation Stop: 04/25/19 09:06 Chlorhexidine Gluconate (Peridex) 15 ml MM [facility] Stop: 04/29/19 19:59 Last Admin: 03/01/19 08:00 Dose: 15 ml Chlorhexidine Gluconate (Peridex) 15 ml MM [facility] Stop: 04/30/19 19:59 Dextrose (D50w) 50 ml IVP PRN PRN PRN Reason: BS Below 70 & not tolerate po Stop: 04/30/19 11:17 Dextrose (Glutose 40%) 18.75 gm PO PRN PRN PRN Reason: BS Below 70 & tolerate po Stop: 04/30/19 11:17 Ferrous Sulfate (Iron) 300 mg PO TID [facility] Stop: 04/25/19 13:59 Last Admin: 03/01/19 09:30 Dose: Not Given Glucagon (Glucagen) 1 mg IM PRN PRN PRN Reason: BS Below 70&dextrose ineffecti Stop: 04/30/19 11:17 Cefazolin Sodium 1 gm/ Sodium (Chloride) 50 mls @ 100 mls/hr IV Q8HR [facility] Stop: 04/26/19 08:59 Last Admin: 03/01/19 13:43 Dose: 100 mls/hr Dextrose/Sodium Chloride (D5-0.9%Ns) 1,000 mls @ 100 mls/hr IV .Q10H [facility] Stop: 04/26/19 17:59 Last Admin: 02/27/19 04:00 Dose: 100 mls/hr Insulin Human Lispro (Humalog Insulin Sliding Scale) 0 units SUBQ Q6HR [facility]; Protocol Stop: 04/30/19 11:59 Last Admin: 03/01/19 12:00 Dose: Not Given Lactobacillus Rhamnosus (Culturelle 15b) 1 each PO DAILY [facility] Stop: 04/27/19 08:59 Last Admin: 03/01/19 09:30 Dose: Not Given Levothyroxine Sodium (Synthroid) 0.1 mg GT QDAC [facility] Stop: 04/26/19 07:29 Last Admin: 03/01/19 07:30 Dose: Not Given Lorazepam (Ativan) 1 mg IVP Q8HR PRN; Protocol PRN Reason: Agitation Stop: 04/29/19 13:26 Last Admin: 03/01/19 06:15 Dose: 1 mg Miscellaneous (Probiotic Screen) 1 ea MC PRN PRN PRN Reason: PROTOCOL Stop: 04/26/19 13:07 Pantoprazole Sodium (Protonix) 40 mg IVP QDAC [facility] Stop: 04/26/19 08:44 Last Admin: 03/01/19 09:34 Dose: 40 mg - Procedures Procedures: Procedures Procedure Code Date CHANGE FEEDING DEVICE IN UP INTEST TRACT, OFFSET MACHINE OPERATOR APPROACH [id number] 08/26/16 CHANGE GASTROSTOMY TUBE 26433 08/26/16 INSPECTION OF UPPER INTESTINAL TRACT, ENDO [id number] 02/23/19 Assessment/Plan - Assessment Assessment: 58 YO MALE WITH DYSPHAGIA AND FOREIGN OBJECT IN THE STOMACH PRESUMED TO BE FROM THE INTERNAL PORTION OF G TUBE PT HAD SURGERY AND NEW GT PLACED EGD 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
[2019-03-01 18:41] LABS: HEMATOCRIT 38.3 % (41.0-60); HEMOGLOBIN 12.5 gm/dL (12-16)
[2019-03-01] MEDS ORDERED: Chlorhexidine Gluconate 0.12% 15mL Mouthwash MM SCH (20:00)
--- NOTE | 2019-03-01 20:41 | General Progress Note ---
Subjective - Review of Systems Service Date: 03/01/19 Subjective: patient is doing well post op doing well abdominal wound is looking good patient is still intubated continue with same plan to extubate Objective - Results Result Diagrams: 03/01/19 18:11 03/01/19 04:05 Recent Labs: Laboratory Last Values WBC 9.2 Th/cmm (4.8-10.8) 03/01/19 04:05 RBC 4.33 Mil/cmm (4.30-5.70) 03/01/19 04:05 Hgb 12.5 gm/dL (12-16) 03/01/19 18:11 Hct 38.3 % (41.0-60) L 03/01/19 18:11 MCV 88.3 fl (80-99) 03/01/19 04:05 MCH 29.7 pg (26.0-30.0) 03/01/19 04:05 MCHC Differential 33.7 pg (28.0-36.0) 03/01/19 04:05 RDW 12.9 % (11.5-20.0) 03/01/19 04:05 Plt Count 237 Th/cmm (150-400) 03/01/19 04:05 MPV 9.4 fl 03/01/19 04:05 Add Manual Diff YES 02/28/19 13:00 Neutrophils % 80.1 % (40.0-80.0) H 03/01/19 04:05 Band Neutrophils % 0 % (0-10) 02/28/19 13:00 Lymphocytes % 10.1 % (20.0-50.0) L 03/01/19 04:05 Monocytes % 9.5 % (2.0-10.0) 03/01/19 04:05 Eosinophils % 0.2 % (0.0-5.0) 03/01/19 04:05 Basophils % 0.1 % (0.0-2.0) 03/01/19 04:05 Neutrophils (Manual) 93 % (40-80) H 02/28/19 13:00 Lymphocytes 5 % (20-50) L 02/28/19 13:00 Monocytes 2 % (2-10) 02/28/19 13:00 Eosinophils 0 % (0-5) 02/28/19 13:00 Basophils 0 % (0-3) 02/28/19 13:00 Platelet Estimate ADEQUATE (NORMAL) 02/25/19 05:18 PT 13.9 SECONDS (9.5-11.5) H 02/28/19 04:30 INR 1.36 (0.5-1.4) 02/28/19 04:30 Sodium 138 mEq/L (136-145) 03/01/19 04:05 Potassium 3.4 mEq/L (3.5-5.1) L 03/01/19 04:05 Chloride 107 mEq/L (98-107) 03/01/19 04:05 Carbon Dioxide 21.0 mEq/L (21.0-31.0) 03/01/19 04:05 Anion Gap 13.4 (7.0-16.0) 03/01/19 04:05 BUN 6 mg/dL (7-25) L 03/01/19 04:05 Creatinine 0.6 mg/dL (0.7-1.3) L 03/01/19 04:05 Est GFR ( Amer) > 60.0 ml/min (>90) 03/01/19 04:05 Est GFR (Non-Af Amer) > 60.0 ml/min 03/01/19 04:05 BUN/Creatinine Ratio 10.0 03/01/19 04:05 Glucose 143 mg/dL (70-105) H 03/01/19 04:05 POC Glucose 135 MG/DL (70 - 105) H 03/01/19 19:34 Calcium 8.6 mg/dL (8.6-10.3) 03/01/19 04:05 Total Bilirubin 0.5 mg/dL (0.3-1.0) 03/01/19 04:05 AST 29 U/L (13-39) 03/01/19 04:05 ALT 10 U/L (7-52) 03/01/19 04:05 Alkaline Phosphatase 67 U/L (34-104) 03/01/19 04:05 Total Protein 6.0 gm/dL (6.0-8.3) 03/01/19 04:05 Albumin 3.4 gm/dL (4.2-5.5) L 03/01/19 04:05 Globulin 2.6 gm/dL 03/01/19 04:05 Albumin/Globulin Ratio 1.3 (1.0-1.8) 03/01/19 04:05 Amylase 48 U/L (29-103) 02/23/19 13:10 Lipase 19 U/L (11-82) 02/23/19 13:10 TSH 5.42 uIU/ml (0.34-5.60) 02/28/19 04:30 - Physical Exam Vitals and I&O: Vital Signs Temp 98.8 F 03/01/19 19:00 Pulse 110 03/01/19 19:23 Resp 12 03/01/19 19:00 BP 129/86 03/01/19 19:00 Pulse Ox 96 03/01/19 19:23 Intake & Output 03/01/19 03/01/19 03/02/19 06:59 18:59 06:59 Intake Total 100 150 Balance 100 150 Weight (lbs) 141 lb 9 oz Intake: Intake, IV Amount 100 150 ceFAZolin 1 gm In Sodium 100 50 Chloride 0.9% 50 ml @ 100 mls/hr IV Q8HR [facility] Rx#: [id number] Oral 0 Other: # Voids 6 # Bowel Movements 0 Weight Source Bedscale Active Medications: Current Medications Acetaminophen (Tylenol) 650 mg GT Q4HR PRN PRN Reason: mild pain or temp >100 Stop: 04/25/19 09:06 Bisacodyl (Dulcolax 10 Mg Supp) 10 mg RC DAILY PRN PRN Reason: Constipation Stop: 04/25/19 09:06 Chlorhexidine Gluconate (Peridex) 15 ml MM [facility] Stop: 04/29/19 19:59 Last Admin: 03/01/19 20:12 Dose: 15 ml Chlorhexidine Gluconate (Peridex) 15 ml MM [facility] Stop: 04/30/19 19:59 Dextrose (D50w) 50 ml IVP PRN PRN PRN Reason: BS Below 70 & not tolerate po Stop: 04/30/19 11:17 Dextrose (Glutose 40%) 18.75 gm PO PRN PRN PRN Reason: BS Below 70 & tolerate po Stop: 04/30/19 11:17 Ferrous Sulfate (Iron) 300 mg PO TID [facility] Stop: 04/25/19 13:59 Last Admin: 03/01/19 15:52 Dose: Not Given Glucagon (Glucagen) 1 mg IM PRN PRN PRN Reason: BS Below 70&dextrose ineffecti Stop: 04/30/19 11:17 Cefazolin Sodium 1 gm/ Sodium (Chloride) 50 mls @ 100 mls/hr IV Q8HR [facility] Stop: 04/26/19 08:59 Last Infusion: 03/01/19 14:15 Dose: Infused Dextrose/Sodium Chloride (D5-0.9%Ns) 1,000 mls @ 100 mls/hr IV .Q10H [facility] Stop: 04/26/19 17:59 Last Admin: 02/27/19 04:00 Dose: 100 mls/hr Insulin Human Lispro (Humalog Insulin Sliding Scale) 0 units SUBQ Q6HR REED; Protocol Stop: 04/30/19 11:59 Last Admin: 03/01/19 19:38 Dose: Not Given Lactobacillus Rhamnosus (Culturelle 15b) 1 each PO DAILY [facility] Stop: 04/27/19 08:59 Last Admin: 03/01/19 09:30 Dose: Not Given Levothyroxine Sodium (Synthroid) 0.1 mg GT QDAC [facility] Stop: 04/26/19 07:29 Last Admin: 03/01/19 07:30 Dose: Not Given Lorazepam (Ativan) 1 mg IVP Q8HR PRN; Protocol PRN Reason: Agitation Stop: 04/29/19 13:26 Last Admin: 03/01/19 06:15 Dose: 1 mg Miscellaneous (Probiotic Screen) 1 ea MC PRN PRN PRN Reason: PROTOCOL Stop: 04/26/19 13:07 Pantoprazole Sodium (Protonix) 40 mg IVP QDAC [facility] Stop: 04/26/19 08:44 Last Admin: 03/01/19 09:34 Dose: 40 mg General: Alert, No acute distress HEENT: Atraumatic, PERRLA Neck: Supple Cardiovascular: Regular rate Lungs: Clear to auscultation Abdomen: Bowel sounds, Soft, Other (Abdominal surgical wound clean, PEG in place. ) Extremities: Other (No edema) Neurological: Normal gait Skin: Other (Warm and dry) Psych/Mental Status: Other (Confused) - Procedures Procedures: Procedures Procedure Code Date CHANGE FEEDING DEVICE IN UP INTEST TRACT, CABLE MOCK UP ASSEMBLER APPROACH [id number] 08/26/16 CHANGE GASTROSTOMY TUBE 01391 08/26/16 INSPECTION OF UPPER INTESTINAL TRACT, ENDO [id number] 02/23/19 Assessment/Plan - Assessment Assessment: post op repair of gastrostomy tube dysfunction ' gastrostomy tube placement laparotomy closure Nutritional Asmnt/Malnutr-PDOC - Dietary Evaluation Malnutrition Findings (Please click <Entered> for more info): Nutritional Asmnt/Malnutrition Start: 02/24/19 16: 30 Text: Status: Complete Freq: Protocol: Document 02/24/19 16:31 ANTOINETTE (Rec: 02/24/19 16:34 ANTOINETTE [email or web address]) Nutritional Asmnt/Malnutrition Patient General Information Nutritional Screening High Risk Diagnosis G TUBE MALFUNCTION Pertinent Medical Hx/Surgical Hx GERD, DEMENTIA, PSYCHOSIS, CAD , HTN, HYPOTHYROIDISM, MUSCLE ATROPHY Subjective Information PT IS A 58 YEAR OLD MALE ADMITTED ON 02/23 D/T BROKEN G- TUBE. PEG WAS PULLED OUT BY PY AT [facility]. PT IS WAITING ON A GI CONSULT AND G-TUBE REPLACEMENT. HT: 52 WT: 124 LB (56.36 KG) BMI: 22.68 (NORMAL) GI: WNL, SOFT, LARGE BM: NOT NOTED I/O: NOT NOTED SKIN: WNL, ROLLY, DRY, INTACT AMINA: 13 DIET ORDER: NPO ESTIMATED ENERGY NEEDS: (ADULT , CBW) 4546-4608 KCALS (25-30 KCALS/ KG) 45-51 G PRO (0.8-0.9 G/KG) 5846-0148 ML (25-30 ML/KG) Current Diet Order/ Nutrition Support NPO Pertinent Medications DULCOLAX (PRN), D5-0.9% NS, PEPCID, FERROUS SULFATE, SYNTHROID Pertinent Labs 02/23: NA 132, ALB 4.1 Nutritional Hx/Data Height 5 ft 2 in Height (Calculated Centimeters) 157.5 Current Weight (lbs) 124 lb Weight (Calculated Kilograms) 56.2 Weight (Calculated Grams) 44235.5 Eure Body Weight 118 LB (53.64KG) % Eure Body Weight 105 Body Mass Index (BMI) 22.6 Weight Status Approriate GI Symptoms Last BM NOT NOTED Skin Integrity/Comment: WNL, ROLLY, DRY, INTACT AMINA: 13 Estimated Nutritional Goals BEE in Kcals: Using Current wt Calories/Kcals/Kg 25-30 Kcals Calculated 1743-7758 Protein: Using Current wt Protein g/k.8-0.9 Protein Calculated 45-51 Fluid: ml 4541-7423 ML (25-30 ML/KG) Nutritional Problem 1. Problem Problem INADEQUATE ENERGY INTAKE Etiology R/T GI CONSULT AND G-TUBE REPLACEMENT Signs/Symptoms: AEB NPO STATUS Malnutrition Related to Morbid Obesity Malnutrition related to morbid obesity No Intervention/Recommendation Comments 1. CONTINUE NPO STATUS MEDICALLY APPROPRIATE. 2. ADVANCE G-TUBE FEEDING ONCE MEDICALLY APPROPRIATE. Expected Outcomes/Goals Expected Outcomes/Goals 1. MONITOR NPO STATUS, WT, NUTRITION RELATED LABS AND SKIN INTEGRITY. 2. F/U HIGH RISK IN 2-3 DAYS, 02/26-02/27
[2019-03-01] MEDS: D5-0.9%NS 1,000 ML IV SCH (20:45)
[2019-03-02] MEDS: Chlorhexidine Gluconate 0.12% 15mL Mouthwash MM SCH ×2 (08:00→20:49)
[2019-03-02] MEDS: Levothyroxine 0.1 Mg Tab GT SCH (10:39)
[2019-03-02] MEDS: Ferrous Sulfate 300 MG/5 ML UDC PO SCH ×3 (10:39→20:50)
[2019-03-02] MEDS: Lactobacillus Rhamnosus GG 15 Billion CFU CAP.SPRINK PO SCH (10:39)
[2019-03-02 10:42] LABS: % BASOPHILS 0.1 % (0.0-2.0); % EOSINOPHILS 0.4 % (0.0-5.0); % LYMPHOCYTES 10.8 % (20.0-50.0); % MONOCYTES 8.5 % (2.0-10.0); % NEUTROPHILS 80.2 % (40.0-80.0); HEMATOCRIT 35.5 % (41.0-60); HEMOGLOBIN 11.9 gm/dL (12-16); MEAN CELL VOLUME 89.1 fl (80-99); MEAN CORPUSCULAR HGB CONC 33.6 pg (28.0-36.0); MONOCYTE ABSOLUTE 0.8 Th/cmm (0.3-1.0); NEUTROPHILE ABSOLUTE 7.3 Th/cmm (1.8-8.0); PLATELET COUNT 210 Th/cmm (150-400); RED BLOOD COUNT 3.99 Mil/cmm (4.30-5.70); WHITE BLOOD COUNT 9.1 Th/cmm (4.8-10.8)
[2019-03-02 11:26] LABS: BUN - UREA NITROGEN 3 mg/dL (7-25); CALCIUM SERUM 8.3 mg/dL (8.6-10.3); GLUCOSE 115 mg/dL (70-105); SODIUM SERUM 136 mEq/L (136-145); TOTAL PROTEIN,SERUM 5.7 gm/dL (6.0-8.3)
[2019-03-02 11:27] LABS: ALB/GLOB RATIO 1.4 (1.0-1.8); ALBUMIN 3.3 gm/dL (4.2-5.5); CHLORIDE 106 mEq/L (98-107); CREATININE - SERUM 0.7 mg/dL (0.7-1.3); GFR AFRICAN-AMERICAN > 60.0 ml/min (>90); GFR NON AFRICAN-AMERICAN > 60.0 ml/min
[2019-03-02] MEDS: D5-0.9%NS 1,000 ML IV SCH (11:30)
[2019-03-02 11:31] LABS: ALKALINE PHOSPHATASE 65 U/L (34-104); BILIRUBIN,TOTAL 0.5 mg/dL (0.3-1.0)
[2019-03-02 11:32] LABS: SGOT 31 U/L (13-39)
[2019-03-02] MEDS: INSULIN LISPRO SLIDING SCALE 100 UNITS/ML UNIT SUBQ SCH ×2 (12:02→18:45)
[2019-03-02 12:44] LABS: ALLEN TEST YES; PaCO2 30.2 mmHg (35.0-45.0); PaO2 73.3 mmHg (80.0-100.0); pH 7.474 (7.35-7.45); sO2c 95.8 % (92.0-100.0)
--- NOTE | 2019-03-02 13:07 | GI Progress Note ---
Subjective - Review of Systems Subjective: HAD SURGICAL GT PLACED NO EVENTS GI OBJECTIVE - Results Result Diagrams: 03/02/19 05:05 03/02/19 05:05 Recent Labs: Laboratory Last Values WBC 9.1 Th/cmm (4.8-10.8) 03/02/19 05:05 RBC 3.99 Mil/cmm (4.30-5.70) L 03/02/19 05:05 Hgb 11.9 gm/dL (12-16) L 03/02/19 05:05 Hct 35.5 % (41.0-60) L 03/02/19 05:05 MCV 89.1 fl (80-99) 03/02/19 05:05 MCH 30.0 pg (26.0-30.0) 03/02/19 05:05 MCHC Differential 33.6 pg (28.0-36.0) 03/02/19 05:05 RDW 13.0 % (11.5-20.0) 03/02/19 05:05 Plt Count 210 Th/cmm (150-400) 03/02/19 05:05 MPV 9.0 fl 03/02/19 05:05 Add Manual Diff YES 02/28/19 13:00 Neutrophils % 80.2 % (40.0-80.0) H 03/02/19 05:05 Band Neutrophils % 0 % (0-10) 02/28/19 13:00 Lymphocytes % 10.8 % (20.0-50.0) L 03/02/19 05:05 Monocytes % 8.5 % (2.0-10.0) 03/02/19 05:05 Eosinophils % 0.4 % (0.0-5.0) 03/02/19 05:05 Basophils % 0.1 % (0.0-2.0) 03/02/19 05:05 Neutrophils (Manual) 93 % (40-80) H 02/28/19 13:00 Lymphocytes 5 % (20-50) L 02/28/19 13:00 Monocytes 2 % (2-10) 02/28/19 13:00 Eosinophils 0 % (0-5) 02/28/19 13:00 Basophils 0 % (0-3) 02/28/19 13:00 Platelet Estimate ADEQUATE (NORMAL) 02/25/19 05:18 PT 13.9 SECONDS (9.5-11.5) H 02/28/19 04:30 INR 1.36 (0.5-1.4) 02/28/19 04:30 Specimen Source Arterial 03/02/19 12:32 Sample Site Left Radial 03/02/19 12:32 pH 7.474 (7.35-7.45) H 03/02/19 12:32 pCO2 30.2 mmHg (35.0-45.0) L 03/02/19 12:32 pO2 73.3 mmHg (80.0-100.0) L 03/02/19 12:32 HCO3 21.7 mEq/L (20.0-26.0) 03/02/19 12:32 Base Excess -0.8 mEq/L (-3.0-3.0) 03/02/19 12:32 O2 Saturation 95.8 % (92.0-100.0) 03/02/19 12:32 Ricky Test YES 03/02/19 12:32 Vent Rate NA 03/02/19 12:32 Inspired O2 40 03/02/19 12:32 Tidal Volume NA 03/02/19 12:32 PEEP 0 03/02/19 12:32 Pressure (ins/psv/peep) 10 03/02/19 12:32 Critical Value E.VILLELA 03/02/19 12:32 Sodium 136 mEq/L (136-145) 03/02/19 05:05 Potassium 3.4 mEq/L (3.5-5.1) L 03/01/19 04:05 Chloride 106 mEq/L (98-107) 03/02/19 05:05 Carbon Dioxide 18.8 mEq/L (21.0-31.0) L 03/02/19 05:05 Anion Gap 13.4 (7.0-16.0) 03/01/19 04:05 BUN 3 mg/dL (7-25) L 03/02/19 05:05 Creatinine 0.7 mg/dL (0.7-1.3) 03/02/19 05:05 Est GFR ( Amer) > 60.0 ml/min (>90) 03/02/19 05:05 Est GFR (Non-Af Amer) > 60.0 ml/min 03/02/19 05:05 BUN/Creatinine Ratio 4.3 03/02/19 05:05 Glucose 115 mg/dL (70-105) H 03/02/19 05:05 POC Glucose 123 MG/DL (70 - 105) H 03/02/19 11:54 Calcium 8.3 mg/dL (8.6-10.3) L 03/02/19 05:05 Total Bilirubin 0.5 mg/dL (0.3-1.0) 03/02/19 05:05 AST 31 U/L (13-39) 03/02/19 05:05 ALT 10 U/L (7-52) 03/01/19 04:05 Alkaline Phosphatase 65 U/L (34-104) 03/02/19 05:05 Total Protein 5.7 gm/dL (6.0-8.3) L 03/02/19 05:05 Albumin 3.3 gm/dL (4.2-5.5) L 03/02/19 05:05 Globulin 2.4 gm/dL 03/02/19 05:05 Albumin/Globulin Ratio 1.4 (1.0-1.8) 03/02/19 05:05 Amylase 48 U/L (29-103) 02/23/19 13:10 Lipase 19 U/L (11-82) 02/23/19 13:10 TSH 5.42 uIU/ml (0.34-5.60) 02/28/19 04:30 - Physical Exam Vitals and I&O: Vital Signs Temp 98.2 F 03/02/19 09:00 Pulse 106 03/02/19 12:50 Resp 16 03/02/19 10:00 BP 119/81 03/02/19 10:00 Pulse Ox 92 03/02/19 12:50 Intake & Output 03/01/19 03/02/19 03/02/19 18:59 06:59 18:59 Intake Total 150 50 Balance 150 50 Weight (lbs) 63.957 kg Intake: Intake, IV Amount 150 50 ceFAZolin 1 gm In Sodium 50 50 Chloride 0.9% 50 ml @ 100 mls/hr IV Q8HR [facility] Rx#: [id number] Other: Weight Source Bedscale Active Medications: Current Medications Acetaminophen (Tylenol) 650 mg GT Q4HR PRN PRN Reason: mild pain or temp >100 Stop: 04/25/19 09:06 Bisacodyl (Dulcolax 10 Mg Supp) 10 mg RC DAILY PRN PRN Reason: Constipation Stop: 04/25/19 09:06 Chlorhexidine Gluconate (Peridex) 15 ml MM 08,1999 [facility] Stop: 04/29/19 19:59 Last Admin: 03/01/19 20:12 Dose: 15 ml Dextrose (D50w) 50 ml IVP PRN PRN PRN Reason: BS Below 70 & not tolerate po Stop: 04/30/19 11:17 Dextrose (Glutose 40%) 18.75 gm PO PRN PRN PRN Reason: BS Below 70 & tolerate po Stop: 04/30/19 11:17 Ferrous Sulfate (Iron) 300 mg PO TID [facility] Stop: 04/25/19 13:59 Last Admin: 03/02/19 10:39 Dose: Not Given Glucagon (Glucagen) 1 mg IM PRN PRN PRN Reason: BS Below 70&dextrose ineffecti Stop: 04/30/19 11:17 Cefazolin Sodium 1 gm/ Sodium (Chloride) 50 mls @ 100 mls/hr IV Q8HR [facility] Stop: 04/26/19 08:59 Last Infusion: 03/01/19 21:15 Dose: Infused Dextrose/Sodium Chloride (D5-0.9%Ns) 1,000 mls @ 100 mls/hr IV .Q10H [facility] Stop: 05/01/19 10:59 Insulin Human Lispro (Humalog Insulin Sliding Scale) 0 units SUBQ Q6HR [facility]; Protocol Stop: 04/30/19 11:59 Last Admin: 03/02/19 12:02 Dose: Not Given Lactobacillus Rhamnosus (Culturelle 15b) 1 each PO DAILY [facility] Stop: 04/27/19 08:59 Last Admin: 03/02/19 10:39 Dose: Not Given Levothyroxine Sodium (Synthroid) 0.1 mg GT QDAC [facility] Stop: 04/26/19 07:29 Last Admin: 03/02/19 10:39 Dose: Not Given Lorazepam (Ativan) 1 mg IVP Q8HR PRN; Protocol PRN Reason: Agitation Stop: 04/29/19 13:26 Last Admin: 03/01/19 22:25 Dose: 1 mg Miscellaneous (Probiotic Screen) 1 ea MC PRN PRN PRN Reason: PROTOCOL Stop: 04/26/19 13:07 Pantoprazole Sodium (Protonix) 40 mg IVP QDAC [facility] Stop: 04/26/19 08:44 Last Admin: 03/01/19 09:34 Dose: 40 mg - Procedures Procedures: Procedures Procedure Code Date CHANGE FEEDING DEVICE IN UP INTEST TRACT, OPERATING ROOM ORDERLY APPROACH [id number] 08/26/16 CHANGE GASTROSTOMY TUBE 75425 08/26/16 INSPECTION OF UPPER INTESTINAL TRACT, ENDO [id number] 02/23/19 Assessment/Plan - Assessment Assessment: 58 YO MALE WITH DYSPHAGIA AND FOREIGN OBJECT IN THE STOMACH PRESUMED TO BE FROM THE INTERNAL PORTION OF G TUBE PT HAD SURGERY AND NEW GT PLACED EGD 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
[2019-03-02] MEDS: ceFAZolin 1 GM in Sodium Chloride 0.9% 50 ML IV SCH ×2 (13:14→20:46)
--- NOTE | 2019-03-02 13:35 | Pathology Report ---
[id number] Collection Date: 02/28/2019 Surgeon: Dr. Marvin Mckeon Specimen Description: 1. Foreign body for gross identification. 2. Fascia and skin from old G-tube site. 3. Stomach tissue. Gross Description: Part I: Received in a plastic container is a portion of a plastic G-tube measuring 6 cm in length with the tip having a rounded appearance measuring 2.5 cm in diameter. There are no tissue fragments. Gross Pathologic Diagnosis: Part I: Distal G-tube tip consistent with foreign body, for gross identification. Gross Description: Part II: Received in formalin is a 4.2 x 2.5 x 1.5 cm portion of nguyen-white skin excised with attached subcutaneous fibrofatty tissue. Sectioning shows areas of induration and fibrosis with no focal lesions Workforce Management Analyst sections are submitted in two cassettes labeled B1 and B2. Gross Description: Part III: Received in formalin is a 2.0 x 1.5 x 0.7 cm portion of dense nguyen-harvey fibroconnective tissue. Sectioning shows areas of nguyen glistening appearance with no focal lesions identified. Totally submitted in two cassettes labeled C1 and C2. Microscopic Description: Part II: The histologic sections show a portion of skin and subcutaneous tissue with areas of acute and chronic inflammation and fibrosis. The inflammatory cells consist of mostly lymphocytes and neutrophils and the areas of fibrosis show a linear tract consistent with an old G-tube site. Diagnosis: Part II: Excision of skin and underlying fibroconnective tissue showing inflammatory changes, consistent with old G-tube site. Microscopic Description: Part III: The histologic sections show a portion of benign gastric mucosa with attached fibromuscular connective tissue. There is mild chronic inflammation present consisting of lymphocytes and plasma cells. Diagnosis: Part III: Portion of gastric mucosa and adjacent fibromuscular connective tissue, consistent with revision of old G-tube site. JOB# [id number] [facility]OSPITALStacy
[2019-03-02 14:09] LABS: ANION GAP 9.7 (7.0-16.0); CARBON DIOXIDE 23.4 mEq/L (21.0-31.0); SGPT/ALT 9 U/L (7-52)
[2019-03-02 14:10] LABS: POTASSIUM SERUM 3.1 mEq/L (3.5-5.1)
[2019-03-02] MEDS: KCL 20mEq/100mL Premix 20 MEQ/100 ML PIGGYBACK IV SCH ×2 (14:45→16:46)
[2019-03-03] MEDS: INSULIN LISPRO SLIDING SCALE 100 UNITS/ML UNIT SUBQ SCH ×4 (00:38→18:09)
[2019-03-03] MEDS: ceFAZolin 1 GM in Sodium Chloride 0.9% 50 ML IV SCH ×2 (04:42→12:43)
[2019-03-03] MEDS: D5-0.9%NS 1,000 ML IV SCH (04:44)
[2019-03-03] MEDS: Levothyroxine 0.1 Mg Tab GT SCH (06:32)
--- NOTE | 2019-03-03 07:40 | General Progress Note ---
Subjective - Review of Systems Service Date: 03/03/19 Events since last encounter: patient extubated G tube in place Patency and functional test with KUB contrast before starting feedings Subjective: patient is doing well post op doing well abdominal wound is looking good patient is still intubated continue with same plan to extubate Objective - Results Result Diagrams: 03/02/19 05:05 03/02/19 13:25 Recent Labs: Laboratory Last Values WBC 9.1 Th/cmm (4.8-10.8) 03/02/19 05:05 RBC 3.99 Mil/cmm (4.30-5.70) L 03/02/19 05:05 Hgb 11.9 gm/dL (12-16) L 03/02/19 05:05 Hct 35.5 % (41.0-60) L 03/02/19 05:05 MCV 89.1 fl (80-99) 03/02/19 05:05 MCH 30.0 pg (26.0-30.0) 03/02/19 05:05 MCHC Differential 33.6 pg (28.0-36.0) 03/02/19 05:05 RDW 13.0 % (11.5-20.0) 03/02/19 05:05 Plt Count 210 Th/cmm (150-400) 03/02/19 05:05 MPV 9.0 fl 03/02/19 05:05 Add Manual Diff YES 02/28/19 13:00 Neutrophils % 80.2 % (40.0-80.0) H 03/02/19 05:05 Band Neutrophils % 0 % (0-10) 02/28/19 13:00 Lymphocytes % 10.8 % (20.0-50.0) L 03/02/19 05:05 Monocytes % 8.5 % (2.0-10.0) 03/02/19 05:05 Eosinophils % 0.4 % (0.0-5.0) 03/02/19 05:05 Basophils % 0.1 % (0.0-2.0) 03/02/19 05:05 Neutrophils (Manual) 93 % (40-80) H 02/28/19 13:00 Lymphocytes 5 % (20-50) L 02/28/19 13:00 Monocytes 2 % (2-10) 02/28/19 13:00 Eosinophils 0 % (0-5) 02/28/19 13:00 Basophils 0 % (0-3) 02/28/19 13:00 Platelet Estimate ADEQUATE (NORMAL) 02/25/19 05:18 PT 13.9 SECONDS (9.5-11.5) H 02/28/19 04:30 INR 1.36 (0.5-1.4) 02/28/19 04:30 Specimen Source Arterial 03/02/19 12:32 Sample Site Left Radial 03/02/19 12:32 pH 7.474 (7.35-7.45) H 03/02/19 12:32 pCO2 30.2 mmHg (35.0-45.0) L 03/02/19 12:32 pO2 73.3 mmHg (80.0-100.0) L 03/02/19 12:32 HCO3 21.7 mEq/L (20.0-26.0) 03/02/19 12:32 Base Excess -0.8 mEq/L (-3.0-3.0) 03/02/19 12:32 O2 Saturation 95.8 % (92.0-100.0) 03/02/19 12:32 Ricky Test YES 03/02/19 12:32 Vent Rate NA 03/02/19 12:32 Inspired O2 40 03/02/19 12:32 Tidal Volume NA 03/02/19 12:32 PEEP 0 03/02/19 12:32 Pressure (ins/psv/peep) 10 03/02/19 12:32 Critical Value [place] 03/02/19 12:32 Sodium 136 mEq/L (136-145) 03/02/19 13:25 Potassium 3.1 mEq/L (3.5-5.1) L 03/02/19 13:25 Chloride 106 mEq/L (98-107) 03/02/19 13:25 Carbon Dioxide 23.4 mEq/L (21.0-31.0) 03/02/19 13:25 Anion Gap 9.7 (7.0-16.0) 03/02/19 13:25 BUN 3 mg/dL (7-25) L 03/02/19 13:25 Creatinine 0.7 mg/dL (0.7-1.3) 03/02/19 13:25 Est GFR ( Amer) > 60.0 ml/min (>90) 03/02/19 13:25 Est GFR (Non-Af Amer) > 60.0 ml/min 03/02/19 13:25 BUN/Creatinine Ratio 4.3 03/02/19 13:25 Glucose 115 mg/dL (70-105) H 03/02/19 13:25 POC Glucose 102 MG/DL (70 - 105) 03/03/19 06:22 Calcium 8.3 mg/dL (8.6-10.3) L 03/02/19 13:25 Total Bilirubin 0.5 mg/dL (0.3-1.0) 03/02/19 13:25 AST 31 U/L (13-39) 03/02/19 13:25 ALT 9 U/L (7-52) 03/02/19 13:25 Alkaline Phosphatase 65 U/L (34-104) 03/02/19 13:25 Total Protein 5.7 gm/dL (6.0-8.3) L 03/02/19 13:25 Albumin 3.3 gm/dL (4.2-5.5) L 03/02/19 13:25 Globulin 2.4 gm/dL 03/02/19 13:25 Albumin/Globulin Ratio 1.4 (1.0-1.8) 03/02/19 13:25 Amylase 48 U/L (29-103) 02/23/19 13:10 Lipase 19 U/L (11-82) 02/23/19 13:10 TSH 5.42 uIU/ml (0.34-5.60) 02/28/19 04:30 - Physical Exam Vitals and I&O: Vital Signs Temp 97.6 F 03/03/19 04:00 Pulse 87 03/03/19 06:47 Resp 22 03/03/19 06:49 BP 127/84 03/03/19 04:00 Pulse Ox 90 03/03/19 06:47 Intake & Output 03/02/19 03/03/19 03/03/19 18:59 06:59 18:59 Intake Total 150 1050 Balance 150 1050 Weight (lbs) 141 lb Intake: Intake, IV Amount 150 1050 D5-0.9%Ns 1,000 ml @ 100 1000 mls/hr IV .Q10H [facility] Rx#: [id number] KCL 20mEq/100mL Premix 20 100 meq In 100 ml @ 50 mls/ hr IV Q2H [facility] Rx#: [id number] ceFAZolin 1 gm In Sodium 50 50 Chloride 0.9% 50 ml @ 100 mls/hr IV Q8HR [facility] Rx#: [id number] Other: Weight Source Bedscale Active Medications: Current Medications Acetaminophen (Tylenol) 650 mg GT Q4HR PRN PRN Reason: mild pain or temp >100 Stop: 04/25/19 09:06 Bisacodyl (Dulcolax 10 Mg Supp) 10 mg RC DAILY PRN PRN Reason: Constipation Stop: 04/25/19 09:06 Chlorhexidine Gluconate (Peridex) 15 ml MM [phone] [facility] Stop: 04/29/19 19:59 Last Admin: 03/02/19 20:49 Dose: Not Given Dextrose (D50w) 50 ml IVP PRN PRN PRN Reason: BS Below 70 & not tolerate po Stop: 04/30/19 11:17 Dextrose (Glutose 40%) 18.75 gm PO PRN PRN PRN Reason: BS Below 70 & tolerate po Stop: 04/30/19 11:17 Ferrous Sulfate (Iron) 300 mg PO TID [facility] Stop: 04/25/19 13:59 Last Admin: 03/02/19 20:50 Dose: Not Given Glucagon (Glucagen) 1 mg IM PRN PRN PRN Reason: BS Below 70&dextrose ineffecti Stop: 04/30/19 11:17 Cefazolin Sodium 1 gm/ Sodium (Chloride) 50 mls @ 100 mls/hr IV Q8HR [facility] Stop: 04/26/19 08:59 Last Admin: 03/03/19 04:42 Dose: 100 mls/hr Dextrose/Sodium Chloride (D5-0.9%Ns) 1,000 mls @ 100 mls/hr IV .Q10H [facility] Stop: 05/01/19 10:59 Last Admin: 03/03/19 04:44 Dose: 100 mls/hr Insulin Human Lispro (Humalog Insulin Sliding Scale) 0 units SUBQ Q6HR [facility]; Protocol Stop: 04/30/19 11:59 Last Admin: 03/03/19 06:32 Dose: Not Given Lactobacillus Rhamnosus (Culturelle 15b) 1 each PO DAILY [facility] Stop: 04/27/19 08:59 Last Admin: 03/02/19 10:39 Dose: Not Given Levothyroxine Sodium (Synthroid) 0.1 mg GT QDAC [facility] Stop: 04/26/19 07:29 Last Admin: 03/03/19 06:32 Dose: Not Given Lorazepam (Ativan) 1 mg IVP Q8HR PRN; Protocol PRN Reason: Agitation Stop: 04/29/19 13:26 Last Admin: 03/01/19 22:25 Dose: 1 mg Miscellaneous (Probiotic Screen) 1 ea MC PRN PRN PRN Reason: PROTOCOL Stop: 04/26/19 13:07 Pantoprazole Sodium (Protonix) 40 mg IVP QDAC [facility] Stop: 04/26/19 08:44 Last Admin: 03/03/19 06:33 Dose: 40 mg General: Alert, No acute distress HEENT: Atraumatic, PERRLA Neck: Supple Cardiovascular: Regular rate Lungs: Clear to auscultation Abdomen: Bowel sounds, Soft, Other (Abdominal surgical wound clean, PEG in place. ) Extremities: Other (No edema) Neurological: Normal gait Skin: Other (Warm and dry) Psych/Mental Status: Other (Confused) - Procedures Procedures: Procedures Procedure Code Date CHANGE FEEDING DEVICE IN UP INTEST TRACT, FILTRATION OPERATOR APPROACH [id number] 08/26/16 CHANGE GASTROSTOMY TUBE 21589 08/26/16 INSPECTION OF UPPER INTESTINAL TRACT, ENDO [id number] 02/23/19 Assessment/Plan - Assessment Assessment: post op repair of gastrostomy tube dysfunction ' gastrostomy tube placement laparotomy closure post op day 2 continue meidcal management Nutritional Asmnt/Malnutr-PDOC - Dietary Evaluation Malnutrition Findings (Please click <Entered> for more info): Nutritional Asmnt/Malnutrition Start: 02/24/19 16: 30 Text: Status: Complete Freq: Protocol: Document 02/24/19 16:31 ANTOINETTE (Rec: 02/24/19 16:34 ANTOINETTE [email or web address]) Nutritional Asmnt/Malnutrition Patient General Information Nutritional Screening High Risk Diagnosis G TUBE MALFUNCTION Pertinent Medical Hx/Surgical Hx GERD, DEMENTIA, PSYCHOSIS, CAD , HTN, HYPOTHYROIDISM, MUSCLE ATROPHY Subjective Information PT IS A 58 YEAR OLD MALE ADMITTED ON 02/23 D/T BROKEN G- TUBE. PEG WAS PULLED OUT BY PY AT [facility]. PT IS WAITING ON A GI CONSULT AND G-TUBE REPLACEMENT. HT: 52 WT: 124 LB (56.36 KG) BMI: 22.68 (NORMAL) GI: WNL, SOFT, LARGE BM: NOT NOTED I/O: NOT NOTED SKIN: WNL, ROLLY, DRY, INTACT AMINA: 13 DIET ORDER: NPO ESTIMATED ENERGY NEEDS: (ADULT , CBW) 4595-3902 KCALS (25-30 KCALS/ KG) 45-51 G PRO (0.8-0.9 G/KG) 1043-5531 ML (25-30 ML/KG) Current Diet Order/ Nutrition Support NPO Pertinent Medications DULCOLAX (PRN), D5-0.9% NS, PEPCID, FERROUS SULFATE, SYNTHROID Pertinent Labs 02/23: NA 132, ALB 4.1 Nutritional Hx/Data Height 5 ft 2 in Height (Calculated Centimeters) 157.5 Current Weight (lbs) 124 lb Weight (Calculated Kilograms) 56.2 Weight (Calculated Grams) 62514.5 [place] Body Weight 118 LB (53.64KG) % [place] Body Weight 105 Body Mass Index (BMI) 22.6 Weight Status Approriate GI Symptoms Last BM NOT NOTED Skin Integrity/Comment: WNL, ROLLY, DRY, INTACT AMINA: 13 Estimated Nutritional Goals BEE in Kcals: Using Current wt Calories/Kcals/Kg 25-30 Kcals Calculated 9617-5965 Protein: Using Current wt Protein g/k.8-0.9 Protein Calculated 45-51 Fluid: ml 4338-0603 ML (25-30 ML/KG) Nutritional Problem 1. Problem Problem INADEQUATE ENERGY INTAKE Etiology R/T GI CONSULT AND G-TUBE REPLACEMENT Signs/Symptoms: AEB NPO STATUS Malnutrition Related to Morbid Obesity Malnutrition related to morbid obesity No Intervention/Recommendation Comments 1. CONTINUE NPO STATUS MEDICALLY APPROPRIATE. 2. ADVANCE G-TUBE FEEDING ONCE MEDICALLY APPROPRIATE. Expected Outcomes/Goals Expected Outcomes/Goals 1. MONITOR NPO STATUS, WT, NUTRITION RELATED LABS AND SKIN INTEGRITY. 2. F/U HIGH RISK IN 2-3 DAYS, 02/26-02/27
[2019-03-03] MEDS ORDERED: Diatrizoate Meglumine/Diatri 30 mL Sol PO ONE (08:14)
[2019-03-03] MEDS: Lactobacillus Rhamnosus GG 15 Billion CFU CAP.SPRINK PO SCH (09:09)
[2019-03-03] MEDS: Ferrous Sulfate 300 MG/5 ML UDC PO SCH ×3 (09:09→20:06)
[2019-03-03 09:22] LABS: % BASOPHILS 0.2 % (0.0-2.0); % EOSINOPHILS 1.3 % (0.0-5.0); % LYMPHOCYTES 15.7 % (20.0-50.0); % MONOCYTES 8.1 % (2.0-10.0); % NEUTROPHILS 74.7 % (40.0-80.0); EOSINOPHILE ABSOLUTE 0.1 Th/cmm (0.1-0.4); HEMATOCRIT 34.9 % (41.0-60); HEMOGLOBIN 11.8 gm/dL (12-16); LYMPHOCYTE ABSOLUTE 1.1 Th/cmm (1.5-3.0); MEAN CELL VOLUME 88.7 fl (80-99); MEAN CORPUSCULAR HGB CONC 33.8 pg (28.0-36.0); MONOCYTE ABSOLUTE 0.6 Th/cmm (0.3-1.0); NEUTROPHILE ABSOLUTE 5.4 Th/cmm (1.8-8.0); PLATELET COUNT 198 Th/cmm (150-400); RED BLOOD COUNT 3.93 Mil/cmm (4.30-5.70); RED CELL DISTRIBUTION WIDTH 12.7 % (11.5-20.0); WHITE BLOOD COUNT 7.2 Th/cmm (4.8-10.8)
[2019-03-03 09:39] LABS: ALB/GLOB RATIO 1.3 (1.0-1.8); ALKALINE PHOSPHATASE 61 U/L (34-104); ANION GAP 11.6 (7.0-16.0); BILIRUBIN,TOTAL 0.6 mg/dL (0.3-1.0); BUN - UREA NITROGEN 3 mg/dL (7-25); CALCIUM SERUM 8.1 mg/dL (8.6-10.3); CARBON DIOXIDE 22.3 mEq/L (21.0-31.0); CHLORIDE 108 mEq/L (98-107); CREATININE - SERUM 0.6 mg/dL (0.7-1.3); GFR AFRICAN-AMERICAN > 60.0 ml/min (>90); GFR NON AFRICAN-AMERICAN > 60.0 ml/min; GLUCOSE 134 mg/dL (70-105); SGOT 19 U/L (13-39); SGPT/ALT 8 U/L (7-52); SODIUM SERUM 139 mEq/L (136-145); TOTAL PROTEIN,SERUM 5.4 gm/dL (6.0-8.3)
[2019-03-03 09:50] LABS: POTASSIUM SERUM 2.9 mEq/L (3.5-5.1)
--- NOTE | 2019-03-03 10:31 | Diagnostic Imaging Report ---
Upper GI (Limited) HISTORY: Gastrostomy tube placement Water-soluble contrast was instilled through patient's gastrostomy tube. The exam demonstrates opacification of the gastric lumen. Changes associated with a hiatal hernia associated with the gastric fundus above the diaphragm. No extravasation. IMPRESSION: 1. Confirmation of gastrostomy tube within the gastric lumen 2. Hiatal hernia
[2019-03-03] MEDS: KCL 20mEq/100mL Premix 20 MEQ/100 ML PIGGYBACK IV SCH ×2 (10:44→12:43)
--- NOTE | 2019-03-03 12:20 | GI Progress Note ---
Subjective - Review of Systems Subjective: HAD SURGICAL GT PLACED NO EVENTS GI OBJECTIVE - Results Result Diagrams: 03/03/19 09:15 03/03/19 09:15 Recent Labs: Laboratory Last Values WBC 7.2 Th/cmm (4.8-10.8) 03/03/19 09:15 RBC 3.93 Mil/cmm (4.30-5.70) L 03/03/19 09:15 Hgb 11.8 gm/dL (12-16) L 03/03/19 09:15 Hct 34.9 % (41.0-60) L 03/03/19 09:15 MCV 88.7 fl (80-99) 03/03/19 09:15 MCH 30.0 pg (26.0-30.0) 03/03/19 09:15 MCHC Differential 33.8 pg (28.0-36.0) 03/03/19 09:15 RDW 12.7 % (11.5-20.0) 03/03/19 09:15 Plt Count 198 Th/cmm (150-400) 03/03/19 09:15 MPV 8.1 fl 03/03/19 09:15 Add Manual Diff YES 02/28/19 13:00 Neutrophils % 74.7 % (40.0-80.0) 03/03/19 09:15 Band Neutrophils % 0 % (0-10) 02/28/19 13:00 Lymphocytes % 15.7 % (20.0-50.0) L 03/03/19 09:15 Monocytes % 8.1 % (2.0-10.0) 03/03/19 09:15 Eosinophils % 1.3 % (0.0-5.0) 03/03/19 09:15 Basophils % 0.2 % (0.0-2.0) 03/03/19 09:15 Neutrophils (Manual) 93 % (40-80) H 02/28/19 13:00 Lymphocytes 5 % (20-50) L 02/28/19 13:00 Monocytes 2 % (2-10) 02/28/19 13:00 Eosinophils 0 % (0-5) 02/28/19 13:00 Basophils 0 % (0-3) 02/28/19 13:00 Platelet Estimate ADEQUATE (NORMAL) 02/25/19 05:18 PT 13.9 SECONDS (9.5-11.5) H 02/28/19 04:30 INR 1.36 (0.5-1.4) 02/28/19 04:30 Specimen Source Arterial 03/02/19 12:32 Sample Site Left Radial 03/02/19 12:32 pH 7.474 (7.35-7.45) H 03/02/19 12:32 pCO2 30.2 mmHg (35.0-45.0) L 03/02/19 12:32 pO2 73.3 mmHg (80.0-100.0) L 03/02/19 12:32 HCO3 21.7 mEq/L (20.0-26.0) 03/02/19 12:32 Base Excess -0.8 mEq/L (-3.0-3.0) 03/02/19 12:32 O2 Saturation 95.8 % (92.0-100.0) 03/02/19 12:32 Ricky Test YES 03/02/19 12:32 Vent Rate NA 03/02/19 12:32 Inspired O2 40 03/02/19 12:32 Tidal Volume NA 03/02/19 12:32 PEEP 0 03/02/19 12:32 Pressure (ins/psv/peep) 10 03/02/19 12:32 Critical Value [facility] 03/02/19 12:32 Sodium 139 mEq/L (136-145) 03/03/19 09:15 Potassium 2.9 mEq/L (3.5-5.1) L* 03/03/19 09:15 Chloride 108 mEq/L (98-107) H 03/03/19 09:15 Carbon Dioxide 22.3 mEq/L (21.0-31.0) 03/03/19 09:15 Anion Gap 11.6 (7.0-16.0) 03/03/19 09:15 BUN 3 mg/dL (7-25) L 03/03/19 09:15 Creatinine 0.6 mg/dL (0.7-1.3) L 03/03/19 09:15 Est GFR ( Amer) > 60.0 ml/min (>90) 03/03/19 09:15 Est GFR (Non-Af Amer) > 60.0 ml/min 03/03/19 09:15 BUN/Creatinine Ratio 5.0 03/03/19 09:15 Glucose 134 mg/dL (70-105) H 03/03/19 09:15 POC Glucose 115 MG/DL (70 - 105) H 03/03/19 11:20 Calcium 8.1 mg/dL (8.6-10.3) L 03/03/19 09:15 Total Bilirubin 0.6 mg/dL (0.3-1.0) 03/03/19 09:15 AST 19 U/L (13-39) 03/03/19 09:15 ALT 8 U/L (7-52) 03/03/19 09:15 Alkaline Phosphatase 61 U/L (34-104) 03/03/19 09:15 Total Protein 5.4 gm/dL (6.0-8.3) L 03/03/19 09:15 Albumin 3.0 gm/dL (4.2-5.5) L 03/03/19 09:15 Globulin 2.4 gm/dL 03/03/19 09:15 Albumin/Globulin Ratio 1.3 (1.0-1.8) 03/03/19 09:15 Amylase 48 U/L (29-103) 02/23/19 13:10 Lipase 19 U/L (11-82) 02/23/19 13:10 TSH 5.42 uIU/ml (0.34-5.60) 02/28/19 04:30 - Physical Exam Vitals and I&O: Vital Signs Temp 97.8 F 03/03/19 08:00 Pulse 84 03/03/19 08:00 Resp 18 03/03/19 08:00 BP 121/83 03/03/19 08:00 Pulse Ox 99 03/03/19 08:00 Intake & Output 03/02/19 03/03/19 03/03/19 18:59 06:59 18:59 Intake Total 150 1050 Balance 150 1050 Weight (lbs) 63.957 kg Intake: Intake, IV Amount 150 1050 D5-0.9%Ns 1,000 ml @ 100 1000 mls/hr IV .Q10H [facility] Rx#: [id number] KCL 20mEq/100mL Premix 20 100 meq In 100 ml @ 50 mls/ hr IV Q2H [facility] Rx#: [id number] ceFAZolin 1 gm In Sodium 50 50 Chloride 0.9% 50 ml @ 100 mls/hr IV Q8HR [facility] Rx#: [id number] Other: Weight Source Bedscale Active Medications: Current Medications Acetaminophen (Tylenol) 650 mg GT Q4HR PRN PRN Reason: mild pain or temp >100 Stop: 04/25/19 09:06 Bisacodyl (Dulcolax 10 Mg Supp) 10 mg RC DAILY PRN PRN Reason: Constipation Stop: 04/25/19 09:06 Dextrose (D50w) 50 ml IVP PRN PRN PRN Reason: BS Below 70 & not tolerate po Stop: 04/30/19 11:17 Dextrose (Glutose 40%) 18.75 gm PO PRN PRN PRN Reason: BS Below 70 & tolerate po Stop: 04/30/19 11:17 Ferrous Sulfate (Iron) 300 mg PO TID [facility] Stop: 04/25/19 13:59 Last Admin: 03/03/19 09:09 Dose: Not Given Glucagon (Glucagen) 1 mg IM PRN PRN PRN Reason: BS Below 70&dextrose ineffecti Stop: 04/30/19 11:17 Cefazolin Sodium 1 gm/ Sodium (Chloride) 50 mls @ 100 mls/hr IV Q8HR [facility] Stop: 04/26/19 08:59 Last Admin: 03/03/19 04:42 Dose: 100 mls/hr Dextrose/Sodium Chloride (D5-0.9%Ns) 1,000 mls @ 100 mls/hr IV .Q10H [facility] Stop: 05/01/19 10:59 Last Admin: 03/03/19 04:44 Dose: 100 mls/hr Potassium Chloride (Potassium Chloride) 20 meq in 100 mls @ 50 mls/hr IV Q2H [facility] Stop: 03/03/19 14:14 Last Admin: 03/03/19 10:44 Dose: 50 mls/hr Insulin Human Lispro (Humalog Insulin Sliding Scale) 0 units SUBQ Q6HR [facility]; Protocol Stop: 04/30/19 11:59 Last Admin: 03/03/19 11:34 Dose: Not Given Lactobacillus Rhamnosus (Culturelle 15b) 1 each PO DAILY [facility] Stop: 04/27/19 08:59 Last Admin: 03/03/19 09:09 Dose: Not Given Levothyroxine Sodium (Synthroid) 0.1 mg GT QDAC [facility] Stop: 04/26/19 07:29 Last Admin: 03/03/19 06:32 Dose: Not Given Lorazepam (Ativan) 1 mg IVP Q8HR [facility]; Protocol PRN Reason: Agitation Stop: 04/29/19 13:26 Last Admin: 03/01/19 22:25 Dose: 1 mg Miscellaneous (Probiotic Screen) 1 ea MC PRN PRN PRN Reason: PROTOCOL Stop: 04/26/19 13:07 Pantoprazole Sodium (Protonix) 40 mg IVP QDAC [facility] Stop: 04/26/19 08:44 Last Admin: 03/03/19 06:33 Dose: 40 mg - Procedures Procedures: Procedures Procedure Code Date CHANGE FEEDING DEVICE IN UP INTEST TRACT, ASTROBIOLOGIST APPROACH [id number] 08/26/16 CHANGE GASTROSTOMY TUBE 10890 08/26/16 INSPECTION OF UPPER INTESTINAL TRACT, ENDO [id number] 02/23/19 Assessment/Plan - Assessment Assessment: 58 YO MALE WITH DYSPHAGIA AND FOREIGN OBJECT IN THE STOMACH PRESUMED TO BE FROM THE INTERNAL PORTION OF G TUBE PT HAD SURGERY AND NEW GT PLACED EGD 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
--- NOTE | 2019-03-03 13:00 | Internal Medicine Prog Note ---
Internal Medicine Subjective - Subjective Patient seen and examined:: with staff, chart reviewed Patient is:: asleep, non-verbal, non-interactive, eyes closed Per staff patient has:: no adverse event, no episodes of fall Internal Medicine Objective - Results Result Diagrams: 03/03/19 09:15 03/03/19 09:15 Recent Labs: Laboratory Last Values WBC 7.2 Th/cmm (4.8-10.8) 03/03/19 09:15 RBC 3.93 Mil/cmm (4.30-5.70) L 03/03/19 09:15 Hgb 11.8 gm/dL (12-16) L 03/03/19 09:15 Hct 34.9 % (41.0-60) L 03/03/19 09:15 MCV 88.7 fl (80-99) 03/03/19 09:15 MCH 30.0 pg (26.0-30.0) 03/03/19 09:15 MCHC Differential 33.8 pg (28.0-36.0) 03/03/19 09:15 RDW 12.7 % (11.5-20.0) 03/03/19 09:15 Plt Count 198 Th/cmm (150-400) 03/03/19 09:15 MPV 8.1 fl 03/03/19 09:15 Add Manual Diff YES 02/28/19 13:00 Neutrophils % 74.7 % (40.0-80.0) 03/03/19 09:15 Band Neutrophils % 0 % (0-10) 02/28/19 13:00 Lymphocytes % 15.7 % (20.0-50.0) L 03/03/19 09:15 Monocytes % 8.1 % (2.0-10.0) 03/03/19 09:15 Eosinophils % 1.3 % (0.0-5.0) 03/03/19 09:15 Basophils % 0.2 % (0.0-2.0) 03/03/19 09:15 Neutrophils (Manual) 93 % (40-80) H 02/28/19 13:00 Lymphocytes 5 % (20-50) L 02/28/19 13:00 Monocytes 2 % (2-10) 02/28/19 13:00 Eosinophils 0 % (0-5) 02/28/19 13:00 Basophils 0 % (0-3) 02/28/19 13:00 Platelet Estimate ADEQUATE (NORMAL) 02/25/19 05:18 PT 13.9 SECONDS (9.5-11.5) H 02/28/19 04:30 INR 1.36 (0.5-1.4) 02/28/19 04:30 Specimen Source Arterial 03/02/19 12:32 Sample Site Left Radial 03/02/19 12:32 pH 7.474 (7.35-7.45) H 03/02/19 12:32 pCO2 30.2 mmHg (35.0-45.0) L 03/02/19 12:32 pO2 73.3 mmHg (80.0-100.0) L 03/02/19 12:32 HCO3 21.7 mEq/L (20.0-26.0) 03/02/19 12:32 Base Excess -0.8 mEq/L (-3.0-3.0) 03/02/19 12:32 O2 Saturation 95.8 % (92.0-100.0) 03/02/19 12:32 Ricky Test YES 03/02/19 12:32 Vent Rate NA 03/02/19 12:32 Inspired O2 40 03/02/19 12:32 Tidal Volume NA 03/02/19 12:32 PEEP 0 03/02/19 12:32 Pressure (ins/psv/peep) 10 03/02/19 12:32 Critical Value E.V[place]LELA 03/02/19 12:32 Sodium 139 mEq/L (136-145) 03/03/19 09:15 Potassium 2.9 mEq/L (3.5-5.1) L* 03/03/19 09:15 Chloride 108 mEq/L (98-107) H 03/03/19 09:15 Carbon Dioxide 22.3 mEq/L (21.0-31.0) 03/03/19 09:15 Anion Gap 11.6 (7.0-16.0) 03/03/19 09:15 BUN 3 mg/dL (7-25) L 03/03/19 09:15 Creatinine 0.6 mg/dL (0.7-1.3) L 03/03/19 09:15 Est GFR ( Amer) > 60.0 ml/min (>90) 03/03/19 09:15 Est GFR (Non-Af Amer) > 60.0 ml/min 03/03/19 09:15 BUN/Creatinine Ratio 5.0 03/03/19 09:15 Glucose 134 mg/dL (70-105) H 03/03/19 09:15 POC Glucose 115 MG/DL (70 - 105) H 03/03/19 11:20 Calcium 8.1 mg/dL (8.6-10.3) L 03/03/19 09:15 Total Bilirubin 0.6 mg/dL (0.3-1.0) 03/03/19 09:15 AST 19 U/L (13-39) 03/03/19 09:15 ALT 8 U/L (7-52) 03/03/19 09:15 Alkaline Phosphatase 61 U/L (34-104) 03/03/19 09:15 Total Protein 5.4 gm/dL (6.0-8.3) L 03/03/19 09:15 Albumin 3.0 gm/dL (4.2-5.5) L 03/03/19 09:15 Globulin 2.4 gm/dL 03/03/19 09:15 Albumin/Globulin Ratio 1.3 (1.0-1.8) 03/03/19 09:15 Amylase 48 U/L (29-103) 02/23/19 13:10 Lipase 19 U/L (11-82) 02/23/19 13:10 TSH 5.42 uIU/ml (0.34-5.60) 02/28/19 04:30 - Physical Exam Vitals and I&O: Vital Signs Temp 97.8 F 03/03/19 08:00 Pulse 84 03/03/19 08:00 Resp 18 03/03/19 08:00 BP 121/83 03/03/19 08:00 Pulse Ox 99 03/03/19 08:00 Intake & Output 03/02/19 03/03/19 03/03/19 18:59 06:59 18:59 Intake Total 150 1100 99.167 Balance 150 1100 99.167 Weight (lbs) 63.957 kg Intake: Intake, IV Amount 150 1100 99.167 D5-0.9%Ns 1,000 ml @ 100 1000 mls/hr IV .Q10H [facility] Rx#: [id number] KCL 20mEq/100mL Premix 20 100 meq In 100 ml @ 50 mls/ hr IV Q2H [facility] Rx#: [id number] KCL 20mEq/100mL Premix 20 99.167 meq In 100 ml @ 50 mls/ hr IV Q2H [facility] Rx#: [id number] ceFAZolin 1 gm In Sodium 50 100 Chloride 0.9% 50 ml @ 100 mls/hr IV Q8HR [facility] Rx#: [id number] Other: Weight Source Bedscale Active Medications: Current Medications Acetaminophen (Tylenol) 650 mg GT Q4HR PRN PRN Reason: mild pain or temp >100 Stop: 04/25/19 09:06 Bisacodyl (Dulcolax 10 Mg Supp) 10 mg RC DAILY PRN PRN Reason: Constipation Stop: 04/25/19 09:06 Dextrose (D50w) 50 ml IVP PRN PRN PRN Reason: BS Below 70 & not tolerate po Stop: 04/30/19 11:17 Dextrose (Glutose 40%) 18.75 gm PO PRN PRN PRN Reason: BS Below 70 & tolerate po Stop: 04/30/19 11:17 Ferrous Sulfate (Iron) 300 mg PO TID [facility] Stop: 04/25/19 13:59 Last Admin: 03/03/19 09:09 Dose: Not Given Glucagon (Glucagen) 1 mg IM PRN PRN PRN Reason: BS Below 70&dextrose ineffecti Stop: 04/30/19 11:17 Cefazolin Sodium 1 gm/ Sodium (Chloride) 50 mls @ 100 mls/hr IV Q8HR [facility] Stop: 04/26/19 08:59 Last Admin: 03/03/19 12:43 Dose: 100 mls/hr Dextrose/Sodium Chloride (D5-0.9%Ns) 1,000 mls @ 100 mls/hr IV .Q10H [facility] Stop: 05/01/19 10:59 Last Admin: 03/03/19 04:44 Dose: 100 mls/hr Potassium Chloride (Potassium Chloride) 20 meq in 100 mls @ 50 mls/hr IV Q2H [facility] Stop: 03/03/19 14:14 Last Admin: 03/03/19 12:43 Dose: 50 mls/hr Insulin Human Lispro (Humalog Insulin Sliding Scale) 0 units SUBQ Q6HR [facility]; Protocol Stop: 04/30/19 11:59 Last Admin: 03/03/19 11:34 Dose: Not Given Lactobacillus Rhamnosus (Culturelle 15b) 1 each PO DAILY REED Stop: 04/27/19 08:59 Last Admin: 03/03/19 09:09 Dose: Not Given Levothyroxine Sodium (Synthroid) 0.1 mg GT QDAC [facility] Stop: 04/26/19 07:29 Last Admin: 03/03/19 06:32 Dose: Not Given Lorazepam (Ativan) 1 mg IVP Q8HR PRN; Protocol PRN Reason: Agitation Stop: 04/29/19 13:26 Last Admin: 03/01/19 22:25 Dose: 1 mg Miscellaneous (Probiotic Screen) 1 ea MC PRN PRN PRN Reason: PROTOCOL Stop: 04/26/19 13:07 Pantoprazole Sodium (Protonix) 40 mg IVP QDAC [facility] Stop: 04/26/19 08:44 Last Admin: 03/03/19 06:33 Dose: 40 mg General: demented HEENT: PERRLA Neck: Supple Lungs: CTAB Cardiovascular: RRR, Normal S1, Normal S2 Abdomen: +GT Extremities: excoriation, deformity - Procedures Procedures: Procedures Procedure Code Date CHANGE FEEDING DEVICE IN UP INTEST TRACT, HAULAGE ENGINE OPERATOR APPROACH [id number] 08/26/16 CHANGE GASTROSTOMY TUBE 58165 08/26/16 INSPECTION OF UPPER INTESTINAL TRACT, ENDO [id number] 02/23/19 Internal Medicine Assmt/Plan - Assessment Assessment: post op repair of gastrostomy tube dysfunction ' gastrostomy tube placement laparotomy closure post op day 3 continue meidcal management dc once clear Nutritional Asmnt/Malnutr-PDOC - Dietary Evaluation Malnutrition Findings (Please click <Entered> for more info): Nutritional Asmnt/Malnutrition Start: 02/24/19 16: 30 Text: Status: Complete Freq: Protocol: Document 02/24/19 16:31 ANTOINETTE (Rec: 02/24/19 16:34 ANTOINETTE [email or web address]) Nutritional Asmnt/Malnutrition Patient General Information Nutritional Screening High Risk Diagnosis G TUBE MALFUNCTION Pertinent Medical Hx/Surgical Hx GERD, DEMENTIA, PSYCHOSIS, CAD , HTN, HYPOTHYROIDISM, MUSCLE ATROPHY Subjective Information PT IS A 58 YEAR OLD MALE ADMITTED ON 02/23 D/T BROKEN G- TUBE. PEG WAS PULLED OUT BY PY AT [facility]. PT IS WAITING ON A GI CONSULT AND G-TUBE REPLACEMENT. HT: 52 WT: 124 LB (56.36 KG) BMI: 22.68 (NORMAL) GI: WNL, SOFT, LARGE BM: NOT NOTED I/O: NOT NOTED SKIN: WNL, ROLLY, DRY, INTACT AMINA: 13 DIET ORDER: NPO ESTIMATED ENERGY NEEDS: (ADULT , CBW) 7227-0463 KCALS (25-30 KCALS/ KG) 45-51 G PRO (0.8-0.9 G/KG) 1165-3058 ML (25-30 ML/KG) Current Diet Order/ Nutrition Support NPO Pertinent Medications DULCOLAX (PRN), D5-0.9% NS, PEPCID, FERROUS SULFATE, SYNTHROID Pertinent Labs 02/23: NA 132, ALB 4.1 Nutritional Hx/Data Height 1.57 m Height (Calculated Centimeters) 157.5 Current Weight (lbs) 56.245 kg Weight (Calculated Kilograms) 56.2 Weight (Calculated Grams) 48974.5 Lawrence Body Weight 118 LB (53.64KG) % Lawrence Body Weight 105 Body Mass Index (BMI) 22.6 Weight Status Approriate GI Symptoms Last BM NOT NOTED Skin Integrity/Comment: WNL, ROLLY, DRY, INTACT AMINA: 13 Estimated Nutritional Goals BEE in Kcals: Using Current wt Calories/Kcals/Kg 25-30 Kcals Calculated 8311-9479 Protein: Using Current wt Protein g/k.8-0.9 Protein Calculated 45-51 Fluid: ml 6989-4397 ML (25-30 ML/KG) Nutritional Problem 1. Problem Problem INADEQUATE ENERGY INTAKE Etiology R/T GI CONSULT AND G-TUBE REPLACEMENT Signs/Symptoms: AEB NPO STATUS Malnutrition Related to Morbid Obesity Malnutrition related to morbid obesity No Intervention/Recommendation Comments 1. CONTINUE NPO STATUS MEDICALLY APPROPRIATE. 2. ADVANCE G-TUBE FEEDING ONCE MEDICALLY APPROPRIATE. Expected Outcomes/Goals Expected Outcomes/Goals 1. MONITOR NPO STATUS, WT, NUTRITION RELATED LABS AND SKIN INTEGRITY. 2. F/U HIGH RISK IN 2-3 DAYS, 02/26-02/27
--- NOTE | 2019-03-03 16:17 | Discharge Summary ---
DATE OF DISCHARGE: 03/03/2019 CHIEF COMPLAINT: Malfunctioning G-tube. FINAL DIAGNOSES: 1. Malfunctioning G-tube. This was repaired surgically. 2. Hypertension. 3. Gastroesophageal reflux disease. 4. Hypothyroidism. 5. Dementia. HISTORY: This is a 58-year-old male with a total disability, admitted from nursing facility secondary to malfunctioning G-tube. The patient admitted for further management. PHYSICAL EXAMINATION: VITAL SIGNS: Blood pressure 121/83, respirations 18, pulse 84, and temperature 97.8. GENERAL: This is a middle-aged male, appears older. NECK: Supple. No mass. LUNGS: ____ breath sounds, otherwise clear to auscultation. HEART: Regular rate and rhythm without any murmur. ABDOMEN: Soft, globular. Positive G-tube. EXTREMITIES: Positive excoriation. NEUROLOGIC: Limited. HOSPITAL COURSE: The patient was admitted to medical floor, was referred to Dr. Jain for GI, Dr. Mckeon for Surgery, and Dr. Fernandez for Urology. The patient initially admitted by Dr. Almaraz. He asked me to cover the patient for surgery and kept intubated and was able to be extubated and ____. CONDITION ON DISCHARGE: Fair. DISCHARGE INSTRUCTIONS: The patient to continue with current care and continue on p.o. antibiotic and follow up with his primary care doctor at the nursing facility. JOB# [id number]
[2019-03-03] MEDS: Pantoprazole 40 mg EC Tab PO SCH (17:52)
[2019-03-04] MEDS: INSULIN LISPRO SLIDING SCALE 100 UNITS/ML UNIT SUBQ SCH ×4 (00:03→17:16)
[2019-03-04] MEDS: Levothyroxine 0.1 Mg Tab GT SCH (06:35)
[2019-03-04] MEDS: Ferrous Sulfate 300 MG/5 ML UDC PO SCH ×3 (09:15→20:10)
[2019-03-04] MEDS: Lactobacillus Rhamnosus GG 15 Billion CFU CAP.SPRINK PO SCH (09:15)
[2019-03-04] MEDS: Pantoprazole 40 mg EC Tab PO SCH ×2 (09:16→16:19)
--- NOTE | 2019-03-04 10:42 | GI Progress Note ---
Subjective - Review of Systems Subjective: HAD SURGICAL GT PLACED NON VERBAL GI OBJECTIVE - Results Result Diagrams: 03/03/19 09:15 03/03/19 09:15 Recent Labs: Laboratory Last Values WBC 7.2 Th/cmm (4.8-10.8) 03/03/19 09:15 RBC 3.93 Mil/cmm (4.30-5.70) L 03/03/19 09:15 Hgb 11.8 gm/dL (12-16) L 03/03/19 09:15 Hct 34.9 % (41.0-60) L 03/03/19 09:15 MCV 88.7 fl (80-99) 03/03/19 09:15 MCH 30.0 pg (26.0-30.0) 03/03/19 09:15 MCHC Differential 33.8 pg (28.0-36.0) 03/03/19 09:15 RDW 12.7 % (11.5-20.0) 03/03/19 09:15 Plt Count 198 Th/cmm (150-400) 03/03/19 09:15 MPV 8.1 fl 03/03/19 09:15 Add Manual Diff YES 02/28/19 13:00 Neutrophils % 74.7 % (40.0-80.0) 03/03/19 09:15 Band Neutrophils % 0 % (0-10) 02/28/19 13:00 Lymphocytes % 15.7 % (20.0-50.0) L 03/03/19 09:15 Monocytes % 8.1 % (2.0-10.0) 03/03/19 09:15 Eosinophils % 1.3 % (0.0-5.0) 03/03/19 09:15 Basophils % 0.2 % (0.0-2.0) 03/03/19 09:15 Neutrophils (Manual) 93 % (40-80) H 02/28/19 13:00 Lymphocytes 5 % (20-50) L 02/28/19 13:00 Monocytes 2 % (2-10) 02/28/19 13:00 Eosinophils 0 % (0-5) 02/28/19 13:00 Basophils 0 % (0-3) 02/28/19 13:00 Platelet Estimate ADEQUATE (NORMAL) 02/25/19 05:18 PT 13.9 SECONDS (9.5-11.5) H 02/28/19 04:30 INR 1.36 (0.5-1.4) 02/28/19 04:30 Specimen Source Arterial 03/02/19 12:32 Sample Site Left Radial 03/02/19 12:32 pH 7.474 (7.35-7.45) H 03/02/19 12:32 pCO2 30.2 mmHg (35.0-45.0) L 03/02/19 12:32 pO2 73.3 mmHg (80.0-100.0) L 03/02/19 12:32 HCO3 21.7 mEq/L (20.0-26.0) 03/02/19 12:32 Base Excess -0.8 mEq/L (-3.0-3.0) 03/02/19 12:32 O2 Saturation 95.8 % (92.0-100.0) 03/02/19 12:32 Ricky Test YES 03/02/19 12:32 Vent Rate NA 03/02/19 12:32 Inspired O2 40 03/02/19 12:32 Tidal Volume NA 03/02/19 12:32 PEEP 0 03/02/19 12:32 Pressure (ins/psv/peep) 10 03/02/19 12:32 Critical Value [place] 03/02/19 12:32 Sodium 139 mEq/L (136-145) 03/03/19 09:15 Potassium 2.9 mEq/L (3.5-5.1) L* 03/03/19 09:15 Chloride 108 mEq/L (98-107) H 03/03/19 09:15 Carbon Dioxide 22.3 mEq/L (21.0-31.0) 03/03/19 09:15 Anion Gap 11.6 (7.0-16.0) 03/03/19 09:15 BUN 3 mg/dL (7-25) L 03/03/19 09:15 Creatinine 0.6 mg/dL (0.7-1.3) L 03/03/19 09:15 Est GFR ( Amer) > 60.0 ml/min (>90) 03/03/19 09:15 Est GFR (Non-Af Amer) > 60.0 ml/min 03/03/19 09:15 BUN/Creatinine Ratio 5.0 03/03/19 09:15 Glucose 134 mg/dL (70-105) H 03/03/19 09:15 POC Glucose 102 MG/DL (70 - 105) 03/04/19 05:43 Calcium 8.1 mg/dL (8.6-10.3) L 03/03/19 09:15 Total Bilirubin 0.6 mg/dL (0.3-1.0) 03/03/19 09:15 AST 19 U/L (13-39) 03/03/19 09:15 ALT 8 U/L (7-52) 03/03/19 09:15 Alkaline Phosphatase 61 U/L (34-104) 03/03/19 09:15 Total Protein 5.4 gm/dL (6.0-8.3) L 03/03/19 09:15 Albumin 3.0 gm/dL (4.2-5.5) L 03/03/19 09:15 Globulin 2.4 gm/dL 03/03/19 09:15 Albumin/Globulin Ratio 1.3 (1.0-1.8) 03/03/19 09:15 Amylase 48 U/L (29-103) 02/23/19 13:10 Lipase 19 U/L (11-82) 02/23/19 13:10 TSH 5.42 uIU/ml (0.34-5.60) 02/28/19 04:30 - Physical Exam Vitals and I&O: Vital Signs Temp 97.3 F 03/04/19 08:00 Pulse 113 03/04/19 08:00 Resp 17 03/04/19 08:00 BP 107/78 03/04/19 08:00 Pulse Ox 93 03/04/19 08:00 Intake & Output 03/03/19 03/04/19 03/04/19 18:59 06:59 18:59 Intake Total 274.167 135 Balance 274.167 135 Weight (lbs) 63.957 kg 63.957 kg Intake: Intake, IV Amount 99.167 KCL 20mEq/100mL Premix 20 99.167 meq In 100 ml @ 50 mls/ hr IV Q2H [facility] Rx#: [id number] Tube Feeding 135 35 Other 40 100 Other: # Voids 2 3 # Bowel Movements 0 Weight Source Bedscale Bedscale Active Medications: Current Medications Acetaminophen (Tylenol) 650 mg GT Q4HR PRN PRN Reason: mild pain or temp >100 Stop: 04/25/19 09:06 Bisacodyl (Dulcolax 10 Mg Supp) 10 mg RC DAILY PRN PRN Reason: Constipation Stop: 04/25/19 09:06 Bisacodyl (Dulcolax 10 Mg Supp) 10 mg RC DAILY REED Stop: 05/03/19 08:59 Last Admin: 03/04/19 10:31 Dose: 10 mg Dextrose (Glutose 40%) 18.75 gm PO PRN PRN PRN Reason: BS Below 70 & tolerate po Stop: 04/30/19 11:17 Ferrous Sulfate (Iron) 300 mg PO TID [facility] Stop: 04/25/19 13:59 Last Admin: 03/04/19 09:15 Dose: Not Given Glucagon (Glucagen) 1 mg IM PRN PRN PRN Reason: BS Below 70&dextrose ineffecti Stop: 04/30/19 11:17 Insulin Human Lispro (Humalog Insulin Sliding Scale) 0 units SUBQ Q6HR [facility]; Protocol Stop: 04/30/19 11:59 Last Admin: 03/04/19 05:47 Dose: Not Given Lactobacillus Rhamnosus (Culturelle 15b) 1 each PO DAILY REED Stop: 04/27/19 08:59 Last Admin: 03/04/19 09:15 Dose: Not Given Levofloxacin (Levaquin) 500 mg PO DAILY REED Stop: 03/09/19 08:59 Last Admin: 03/04/19 09:16 Dose: Not Given Levothyroxine Sodium (Synthroid) 0.1 mg GT QDAC REED Stop: 04/26/19 07:29 Last Admin: 03/04/19 06:35 Dose: 0.1 mg Lorazepam (Ativan) 1 mg IVP Q8HR PRN; Protocol PRN Reason: Agitation Stop: 04/29/19 13:26 Last Admin: 03/03/19 20:06 Dose: 1 mg Miscellaneous (Probiotic Screen) 1 ea MC PRN PRN PRN Reason: PROTOCOL Stop: 04/26/19 13:07 Pantoprazole Sodium (Protonix) 40 mg PO BID REED Stop: 05/02/19 16:59 Last Admin: 03/04/19 09:16 Dose: Not Given - Procedures Procedures: Procedures Procedure Code Date CHANGE FEEDING DEVICE IN UP INTEST TRACT, PARTS CONTROL CLERK APPROACH [id number] 08/26/16 CHANGE GASTROSTOMY TUBE 64770 08/26/16 INSPECTION OF UPPER INTESTINAL TRACT, ENDO [id number] 02/23/19 Assessment/Plan - Assessment Assessment: 58 YO MALE WITH DYSPHAGIA AND FOREIGN OBJECT IN THE STOMACH PRESUMED TO BE FROM THE INTERNAL PORTION OF G TUBE PT HAD SURGERY AND NEW GT PLACED EGD 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
--- NOTE | 2019-03-04 11:20 | Diagnostic Imaging Report ---
KUB abdominal film HISTORY: Constipation The exam demonstrates residual radiopaque contrast throughout nondilated large bowel. Several mildly dilated loops of small bowel are seen. Overall appearance is nonspecific. No free intraperitoneal air. IMPRESSION: 1. Residual contrast noted throughout nondilated large bowel. Several slightly dilated small bowel loops are seen within the overall nonspecific appearance.
[2019-03-04 12:12] LABS: ANION GAP 10.8 (7.0-16.0); BUN - UREA NITROGEN 8 mg/dL (7-25); CALCIUM SERUM 8.3 mg/dL (8.6-10.3); CARBON DIOXIDE 22.5 mEq/L (21.0-31.0); CHLORIDE 111 mEq/L (98-107); CREATININE - SERUM 0.7 mg/dL (0.7-1.3); GFR AFRICAN-AMERICAN > 60.0 ml/min (>90); GFR NON AFRICAN-AMERICAN > 60.0 ml/min; GLUCOSE 116 mg/dL (70-105); POTASSIUM SERUM 3.3 mEq/L (3.5-5.1); SODIUM SERUM 141 mEq/L (136-145)
[2019-03-04] MEDS ORDERED: Potassium Chloride 40 MEQ, Lidocaine 1% 20mL Vial 25 MG in Sodium Chloride 0.9% 250 ML IV ONE (13:24)
--- NOTE | 2019-03-04 13:24 | Internal Medicine Prog Note ---
Internal Medicine Subjective - Subjective Patient seen and examined:: with staff, chart reviewed, other (high gt residual) Patient is:: asleep, non-verbal, non-interactive, eyes closed Per staff patient has:: no adverse event, no episodes of fall Internal Medicine Objective - Results Result Diagrams: 03/03/19 09:15 03/04/19 11:51 Recent Labs: Laboratory Last Values WBC 7.2 Th/cmm (4.8-10.8) 03/03/19 09:15 RBC 3.93 Mil/cmm (4.30-5.70) L 03/03/19 09:15 Hgb 11.8 gm/dL (12-16) L 03/03/19 09:15 Hct 34.9 % (41.0-60) L 03/03/19 09:15 MCV 88.7 fl (80-99) 03/03/19 09:15 MCH 30.0 pg (26.0-30.0) 03/03/19 09:15 MCHC Differential 33.8 pg (28.0-36.0) 03/03/19 09:15 RDW 12.7 % (11.5-20.0) 03/03/19 09:15 Plt Count 198 Th/cmm (150-400) 03/03/19 09:15 MPV 8.1 fl 03/03/19 09:15 Add Manual Diff YES 02/28/19 13:00 Neutrophils % 74.7 % (40.0-80.0) 03/03/19 09:15 Band Neutrophils % 0 % (0-10) 02/28/19 13:00 Lymphocytes % 15.7 % (20.0-50.0) L 03/03/19 09:15 Monocytes % 8.1 % (2.0-10.0) 03/03/19 09:15 Eosinophils % 1.3 % (0.0-5.0) 03/03/19 09:15 Basophils % 0.2 % (0.0-2.0) 03/03/19 09:15 Neutrophils (Manual) 93 % (40-80) H 02/28/19 13:00 Lymphocytes 5 % (20-50) L 02/28/19 13:00 Monocytes 2 % (2-10) 02/28/19 13:00 Eosinophils 0 % (0-5) 02/28/19 13:00 Basophils 0 % (0-3) 02/28/19 13:00 Platelet Estimate ADEQUATE (NORMAL) 02/25/19 05:18 PT 13.9 SECONDS (9.5-11.5) H 02/28/19 04:30 INR 1.36 (0.5-1.4) 02/28/19 04:30 Specimen Source Arterial 03/02/19 12:32 Sample Site Left Radial 03/02/19 12:32 pH 7.474 (7.35-7.45) H 03/02/19 12:32 pCO2 30.2 mmHg (35.0-45.0) L 03/02/19 12:32 pO2 73.3 mmHg (80.0-100.0) L 03/02/19 12:32 HCO3 21.7 mEq/L (20.0-26.0) 03/02/19 12:32 Base Excess -0.8 mEq/L (-3.0-3.0) 03/02/19 12:32 O2 Saturation 95.8 % (92.0-100.0) 03/02/19 12:32 Ricky Test YES 03/02/19 12:32 Vent Rate NA 03/02/19 12:32 Inspired O2 40 03/02/19 12:32 Tidal Volume NA 03/02/19 12:32 PEEP 0 03/02/19 12:32 Pressure (ins/psv/peep) 10 03/02/19 12:32 Critical Value [place] 03/02/19 12:32 Sodium 141 mEq/L (136-145) 03/04/19 11:51 Potassium 3.3 mEq/L (3.5-5.1) L 03/04/19 11:51 Chloride 111 mEq/L (98-107) H 03/04/19 11:51 Carbon Dioxide 22.5 mEq/L (21.0-31.0) 03/04/19 11:51 Anion Gap 10.8 (7.0-16.0) 03/04/19 11:51 BUN 8 mg/dL (7-25) 03/04/19 11:51 Creatinine 0.7 mg/dL (0.7-1.3) 03/04/19 11:51 Est GFR ( Amer) > 60.0 ml/min (>90) 03/04/19 11:51 Est GFR (Non-Af Amer) > 60.0 ml/min 03/04/19 11:51 BUN/Creatinine Ratio 11.4 03/04/19 11:51 Glucose 116 mg/dL (70-105) H 03/04/19 11:51 POC Glucose 96 MG/DL (70 - 105) 03/04/19 11:37 Calcium 8.3 mg/dL (8.6-10.3) L 03/04/19 11:51 Total Bilirubin 0.6 mg/dL (0.3-1.0) 03/03/19 09:15 AST 19 U/L (13-39) 03/03/19 09:15 ALT 8 U/L (7-52) 03/03/19 09:15 Alkaline Phosphatase 61 U/L (34-104) 03/03/19 09:15 Total Protein 5.4 gm/dL (6.0-8.3) L 03/03/19 09:15 Albumin 3.0 gm/dL (4.2-5.5) L 03/03/19 09:15 Globulin 2.4 gm/dL 03/03/19 09:15 Albumin/Globulin Ratio 1.3 (1.0-1.8) 03/03/19 09:15 Amylase 48 U/L (29-103) 02/23/19 13:10 Lipase 19 U/L (11-82) 02/23/19 13:10 TSH 5.42 uIU/ml (0.34-5.60) 02/28/19 04:30 - Physical Exam Vitals and I&O: Vital Signs Temp 97.2 F 03/04/19 11:43 Pulse 104 03/04/19 11:43 Resp 18 03/04/19 11:43 BP 107/75 03/04/19 11:43 Pulse Ox 95 03/04/19 11:43 Intake & Output 03/03/19 03/04/19 03/04/19 18:59 06:59 18:59 Intake Total 274.167 135 Balance 274.167 135 Weight (lbs) 63.957 kg 63.957 kg Intake: Intake, IV Amount 99.167 KCL 20mEq/100mL Premix 20 99.167 meq In 100 ml @ 50 mls/ hr IV Q2H [facility] Rx#: [id number] Tube Feeding 135 35 Other 40 100 Other: # Voids 2 3 # Bowel Movements 0 Weight Source Bedscale Bedscale Active Medications: Current Medications Acetaminophen (Tylenol) 650 mg GT Q4HR PRN PRN Reason: mild pain or temp >100 Stop: 04/25/19 09:06 Bisacodyl (Dulcolax 10 Mg Supp) 10 mg RC DAILY PRN PRN Reason: Constipation Stop: 04/25/19 09:06 Bisacodyl (Dulcolax 10 Mg Supp) 10 mg RC DAILY [facility] Stop: 05/03/19 08:59 Last Admin: 03/04/19 10:31 Dose: 10 mg Dextrose (Glutose 40%) 18.75 gm PO PRN PRN PRN Reason: BS Below 70 & tolerate po Stop: 04/30/19 11:17 Ferrous Sulfate (Iron) 300 mg PO TID [facility] Stop: 04/25/19 13:59 Last Admin: 03/04/19 09:15 Dose: Not Given Glucagon (Glucagen) 1 mg IM PRN PRN PRN Reason: BS Below 70&dextrose ineffecti Stop: 04/30/19 11:17 Dextrose/Sodium Chloride (D5-0.9%Ns) 1,000 mls @ 60 mls/hr IV .[id number] [facility] Stop: 05/03/19 12:29 Insulin Human Lispro (Humalog Insulin Sliding Scale) 0 units SUBQ Q6HR [facility]; Protocol Stop: 04/30/19 11:59 Last Admin: 03/04/19 12:40 Dose: Not Given Lactobacillus Rhamnosus (Culturelle 15b) 1 each PO DAILY [facility] Stop: 04/27/19 08:59 Last Admin: 03/04/19 09:15 Dose: Not Given Levofloxacin (Levaquin) 500 mg PO DAILY [facility] Stop: 03/09/19 08:59 Last Admin: 03/04/19 09:16 Dose: Not Given Levothyroxine Sodium (Synthroid) 0.1 mg GT QDAC [facility] Stop: 04/26/19 07:29 Last Admin: 03/04/19 06:35 Dose: 0.1 mg Lorazepam (Ativan) 1 mg IVP Q8HR PRN; Protocol PRN Reason: Agitation Stop: 04/29/19 13:26 Last Admin: 03/03/19 20:06 Dose: 1 mg Miscellaneous (Probiotic Screen) 1 ea MC PRN PRN PRN Reason: PROTOCOL Stop: 04/26/19 13:07 Pantoprazole Sodium (Protonix) 40 mg PO BID [facility] Stop: 05/02/19 16:59 Last Admin: 03/04/19 09:16 Dose: Not Given General: demented HEENT: PERRLA Neck: Supple Lungs: CTAB Cardiovascular: RRR, Normal S1, Normal S2 Abdomen: +GT Extremities: excoriation, deformity - Procedures Procedures: Procedures Procedure Code Date CHANGE FEEDING DEVICE IN UP INTEST TRACT, SPECIAL POPULATION PARAPROFESSIONAL APPROACH [id number] 08/26/16 CHANGE GASTROSTOMY TUBE 46225 08/26/16 INSPECTION OF UPPER INTESTINAL TRACT, ENDO [id number] 02/23/19 Internal Medicine Assmt/Plan - Assessment Assessment: post op repair of gastrostomy tube dysfunction ' gastrostomy tube placement laparotomy closure post op day 3 continue meidcal management dc once clear - Plan Plan: cont on iv hydration gi and surgery following will correct lytes valentin rn Nutritional Asmnt/Malnutr-PDOC - Dietary Evaluation Malnutrition Findings (Please click <Entered> for more info): Nutritional Asmnt/Malnutrition Start: 02/24/19 16: 30 Text: Status: Complete Freq: Protocol: Document 02/24/19 16:31 ANTOINETTE (Rec: 02/24/19 16:34 ANTOINETTE [email or web address]) Nutritional Asmnt/Malnutrition Patient General Information Nutritional Screening High Risk Diagnosis G TUBE MALFUNCTION Pertinent Medical Hx/Surgical Hx GERD, DEMENTIA, PSYCHOSIS, CAD , HTN, HYPOTHYROIDISM, MUSCLE ATROPHY Subjective Information PT IS A 58 YEAR OLD MALE ADMITTED ON 02/23 D/T BROKEN G- TUBE. PEG WAS PULLED OUT BY PY AT [facility]. PT IS WAITING ON A GI CONSULT AND G-TUBE REPLACEMENT. HT: 52 WT: 124 LB (56.36 KG) BMI: 22.68 (NORMAL) GI: WNL, SOFT, LARGE BM: NOT NOTED I/O: NOT NOTED SKIN: WNL, ROLLY, DRY, INTACT AMINA: 13 DIET ORDER: NPO ESTIMATED ENERGY NEEDS: (ADULT , CBW) 9900-4837 KCALS (25-30 KCALS/ KG) 45-51 G PRO (0.8-0.9 G/KG) 6028-4584 ML (25-30 ML/KG) Current Diet Order/ Nutrition Support NPO Pertinent Medications DULCOLAX (PRN), D5-0.9% NS, PEPCID, FERROUS SULFATE, SYNTHROID Pertinent Labs 02/23: NA 132, ALB 4.1 Nutritional Hx/Data Height 1.57 m Height (Calculated Centimeters) 157.5 Current Weight (lbs) 56.245 kg Weight (Calculated Kilograms) 56.2 Weight (Calculated Grams) 59963.5 [place] Body Weight 118 LB (53.64KG) % [place] Body Weight 105 Body Mass Index (BMI) 22.6 Weight Status Approriate GI Symptoms Last BM NOT NOTED Skin Integrity/Comment: WNL, ROLLY, DRY, INTACT AMINA: 13 Estimated Nutritional Goals BEE in Kcals: Using Current wt Calories/Kcals/Kg 25-30 Kcals Calculated 6145-4556 Protein: Using Current wt Protein g/k.8-0.9 Protein Calculated 45-51 Fluid: ml 1797-6240 ML (25-30 ML/KG) Nutritional Problem 1. Problem Problem INADEQUATE ENERGY INTAKE Etiology R/T GI CONSULT AND G-TUBE REPLACEMENT Signs/Symptoms: AEB NPO STATUS Malnutrition Related to Morbid Obesity Malnutrition related to morbid obesity No Intervention/Recommendation Comments 1. CONTINUE NPO STATUS MEDICALLY APPROPRIATE. 2. ADVANCE G-TUBE FEEDING ONCE MEDICALLY APPROPRIATE. Expected Outcomes/Goals Expected Outcomes/Goals 1. MONITOR NPO STATUS, WT, NUTRITION RELATED LABS AND SKIN INTEGRITY. 2. F/U HIGH RISK IN 2-3 DAYS, 02/26-02/27
[2019-03-04] MEDS: D5-0.9%NS 1,000 ML IV SCH (13:37)
[2019-03-04] MEDS: Levetiracetam 500 mg/5mL 5mL UDSyr *for ORAL USE ONLY GT SCH (20:10)
[2019-03-04] MEDS ORDERED: Levetiracetam 500 mg/5mL 5mL UDSyr *for ORAL USE ONLY PO SCH (21:00)
[2019-03-05] MEDS: INSULIN LISPRO SLIDING SCALE 100 UNITS/ML UNIT SUBQ SCH ×5 (00:24→19:00)
[2019-03-05] MEDS: D5-0.9%NS 1,000 ML IV SCH (04:30)
[2019-03-05] MEDS: Levothyroxine 0.1 Mg Tab GT SCH (06:45)
--- NOTE | 2019-03-05 08:49 | Internal Medicine Prog Note ---
Internal Medicine Subjective - Subjective Patient seen and examined:: with staff, chart reviewed Patient is:: asleep, non-verbal, non-interactive, eyes closed Per staff patient has:: no adverse event, no episodes of fall Internal Medicine Objective - Results Result Diagrams: 03/03/19 09:15 03/04/19 11:51 Recent Labs: Laboratory Last Values WBC 7.2 Th/cmm (4.8-10.8) 03/03/19 09:15 RBC 3.93 Mil/cmm (4.30-5.70) L 03/03/19 09:15 Hgb 11.8 gm/dL (12-16) L 03/03/19 09:15 Hct 34.9 % (41.0-60) L 03/03/19 09:15 MCV 88.7 fl (80-99) 03/03/19 09:15 MCH 30.0 pg (26.0-30.0) 03/03/19 09:15 MCHC Differential 33.8 pg (28.0-36.0) 03/03/19 09:15 RDW 12.7 % (11.5-20.0) 03/03/19 09:15 Plt Count 198 Th/cmm (150-400) 03/03/19 09:15 MPV 8.1 fl 03/03/19 09:15 Add Manual Diff YES 02/28/19 13:00 Neutrophils % 74.7 % (40.0-80.0) 03/03/19 09:15 Band Neutrophils % 0 % (0-10) 02/28/19 13:00 Lymphocytes % 15.7 % (20.0-50.0) L 03/03/19 09:15 Monocytes % 8.1 % (2.0-10.0) 03/03/19 09:15 Eosinophils % 1.3 % (0.0-5.0) 03/03/19 09:15 Basophils % 0.2 % (0.0-2.0) 03/03/19 09:15 Neutrophils (Manual) 93 % (40-80) H 02/28/19 13:00 Lymphocytes 5 % (20-50) L 02/28/19 13:00 Monocytes 2 % (2-10) 02/28/19 13:00 Eosinophils 0 % (0-5) 02/28/19 13:00 Basophils 0 % (0-3) 02/28/19 13:00 Platelet Estimate ADEQUATE (NORMAL) 02/25/19 05:18 PT 13.9 SECONDS (9.5-11.5) H 02/28/19 04:30 INR 1.36 (0.5-1.4) 02/28/19 04:30 Specimen Source Arterial 03/02/19 12:32 Sample Site Left Radial 03/02/19 12:32 pH 7.474 (7.35-7.45) H 03/02/19 12:32 pCO2 30.2 mmHg (35.0-45.0) L 03/02/19 12:32 pO2 73.3 mmHg (80.0-100.0) L 03/02/19 12:32 HCO3 21.7 mEq/L (20.0-26.0) 03/02/19 12:32 Base Excess -0.8 mEq/L (-3.0-3.0) 03/02/19 12:32 O2 Saturation 95.8 % (92.0-100.0) 03/02/19 12:32 Ricky Test YES 03/02/19 12:32 Vent Rate NA 03/02/19 12:32 Inspired O2 40 03/02/19 12:32 Tidal Volume NA 03/02/19 12:32 PEEP 0 03/02/19 12:32 Pressure (ins/psv/peep) 10 03/02/19 12:32 Critical Value [place] 03/02/19 12:32 Sodium 141 mEq/L (136-145) 03/04/19 11:51 Potassium 3.3 mEq/L (3.5-5.1) L 03/04/19 11:51 Chloride 111 mEq/L (98-107) H 03/04/19 11:51 Carbon Dioxide 22.5 mEq/L (21.0-31.0) 03/04/19 11:51 Anion Gap 10.8 (7.0-16.0) 03/04/19 11:51 BUN 8 mg/dL (7-25) 03/04/19 11:51 Creatinine 0.7 mg/dL (0.7-1.3) 03/04/19 11:51 Est GFR ( Amer) > 60.0 ml/min (>90) 03/04/19 11:51 Est GFR (Non-Af Amer) > 60.0 ml/min 03/04/19 11:51 BUN/Creatinine Ratio 11.4 03/04/19 11:51 Glucose 116 mg/dL (70-105) H 03/04/19 11:51 POC Glucose 89 MG/DL (70 - 105) 03/05/19 05:22 Calcium 8.3 mg/dL (8.6-10.3) L 03/04/19 11:51 Total Bilirubin 0.6 mg/dL (0.3-1.0) 03/03/19 09:15 AST 19 U/L (13-39) 03/03/19 09:15 ALT 8 U/L (7-52) 03/03/19 09:15 Alkaline Phosphatase 61 U/L (34-104) 03/03/19 09:15 Total Protein 5.4 gm/dL (6.0-8.3) L 03/03/19 09:15 Albumin 3.0 gm/dL (4.2-5.5) L 03/03/19 09:15 Globulin 2.4 gm/dL 03/03/19 09:15 Albumin/Globulin Ratio 1.3 (1.0-1.8) 03/03/19 09:15 Amylase 48 U/L (29-103) 02/23/19 13:10 Lipase 19 U/L (11-82) 02/23/19 13:10 TSH 5.42 uIU/ml (0.34-5.60) 02/28/19 04:30 - Physical Exam Vitals and I&O: Vital Signs Temp 98.1 F 03/05/19 03:44 Pulse 63 03/05/19 03:44 Resp 18 03/05/19 03:44 BP 111/78 03/05/19 03:44 Pulse Ox 97 03/05/19 03:44 Intake & Output 03/04/19 03/05/19 03/05/19 18:59 06:59 18:59 Intake Total 100 1013 Balance 100 1013 Weight (lbs) 63.957 kg 63.957 kg Intake: Intake, IV Amount 893 D5-0.9%Ns 1,000 ml @ 60 893 mls/hr IV .[id number] [facility] Rx #:[id number] Other 100 120 Other: # Voids 3 3 # Bowel Movements 1 Stool Characteristics Liquid Black Black Weight Source Bedscale Bedscale Active Medications: Current Medications Acetaminophen (Tylenol) 650 mg GT Q4HR PRN PRN Reason: mild pain or temp >100 Stop: 04/25/19 09:06 Bisacodyl (Dulcolax 10 Mg Supp) 10 mg RC DAILY PRN PRN Reason: Constipation Stop: 04/25/19 09:06 Dextrose (Glutose 40%) 18.75 gm PO PRN PRN PRN Reason: BS Below 70 & tolerate po Stop: 04/30/19 11:17 Ferrous Sulfate (Iron) 300 mg PO TID [facility] Stop: 04/25/19 13:59 Last Admin: 03/04/19 20:10 Dose: 300 mg Glucagon (Glucagen) 1 mg IM PRN PRN PRN Reason: BS Below 70&dextrose ineffecti Stop: 04/30/19 11:17 Dextrose/Sodium Chloride (D5-0.9%Ns) 1,000 mls @ 60 mls/hr IV .[id number] [facility] Stop: 05/03/19 12:29 Last Admin: 03/05/19 04:30 Dose: 60 mls/hr Insulin Human Lispro (Humalog Insulin Sliding Scale) 0 units SUBQ Q6HR [facility]; Protocol Stop: 04/30/19 11:59 Last Admin: 03/05/19 05:30 Dose: Not Given Lactobacillus Rhamnosus (Culturelle 15b) 1 each PO DAILY [facility] Stop: 04/27/19 08:59 Last Admin: 03/04/19 09:15 Dose: Not Given Levetiracetam (Keppra) 500 mg GT Q12HR [facility] Stop: 05/03/19 20:59 Last Admin: 03/04/19 20:10 Dose: 500 mg Levofloxacin (Levaquin) 500 mg PO DAILY [facility] Stop: 03/09/19 08:59 Last Admin: 03/04/19 14:25 Dose: 500 mg Levothyroxine Sodium (Synthroid) 0.1 mg GT QDAC [facility] Stop: 04/26/19 07:29 Last Admin: 03/05/19 06:45 Dose: 0.1 mg Lorazepam (Ativan) 1 mg IVP Q8HR PRN; Protocol PRN Reason: Agitation Stop: 04/29/19 13:26 Last Admin: 03/03/19 20:06 Dose: 1 mg Miscellaneous (Probiotic Screen) 1 ea MC PRN PRN PRN Reason: PROTOCOL Stop: 04/26/19 13:07 Pantoprazole Sodium (Protonix) 40 mg PO BID [facility] Stop: 05/02/19 16:59 Last Admin: 03/04/19 16:19 Dose: 40 mg General: demented HEENT: PERRLA Neck: Supple Lungs: CTAB Cardiovascular: RRR, Normal S1, Normal S2 Abdomen: +GT Extremities: excoriation, deformity - Procedures Procedures: Procedures Procedure Code Date CHANGE FEEDING DEVICE IN UP INTEST TRACT, TEST PULLER APPROACH [id number] 08/26/16 CHANGE GASTROSTOMY TUBE 15699 08/26/16 INSPECTION OF UPPER INTESTINAL TRACT, ENDO [id number] 02/23/19 Internal Medicine Assmt/Plan - Assessment Assessment: post op repair of gastrostomy tube dysfunction ' gastrostomy tube placement laparotomy closure - Plan Plan: cont on iv hydration gi and surgery following will correct lytes dw rn start gt feeding Nutritional Asmnt/Malnutr-PDOC - Dietary Evaluation Malnutrition Findings (Please click <Entered> for more info): Nutritional Asmnt/Malnutrition Start: 02/24/19 16: 30 Text: Status: Complete Freq: Protocol: Document 02/24/19 16:31 ANTOINETTE (Rec: 02/24/19 16:34 ANTOINETTE [email or web address]) Nutritional Asmnt/Malnutrition Patient General Information Nutritional Screening High Risk Diagnosis G TUBE MALFUNCTION Pertinent Medical Hx/Surgical Hx GERD, DEMENTIA, PSYCHOSIS, CAD , HTN, HYPOTHYROIDISM, MUSCLE ATROPHY Subjective Information PT IS A 58 YEAR OLD MALE ADMITTED ON 02/23 D/T BROKEN G- TUBE. PEG WAS PULLED OUT BY PY AT [facility]. PT IS WAITING ON A GI CONSULT AND G-TUBE REPLACEMENT. HT: 52 WT: 124 LB (56.36 KG) BMI: 22.68 (NORMAL) GI: WNL, SOFT, LARGE BM: NOT NOTED I/O: NOT NOTED SKIN: WNL, ROLLY, DRY, INTACT AMINA: 13 DIET ORDER: NPO ESTIMATED ENERGY NEEDS: (ADULT , CBW) 4707-5924 KCALS (25-30 KCALS/ KG) 45-51 G PRO (0.8-0.9 G/KG) 2670-2573 ML (25-30 ML/KG) Current Diet Order/ Nutrition Support NPO Pertinent Medications DULCOLAX (PRN), D5-0.9% NS, PEPCID, FERROUS SULFATE, SYNTHROID Pertinent Labs 02/23: NA 132, ALB 4.1 Nutritional Hx/Data Height 1.57 m Height (Calculated Centimeters) 157.5 Current Weight (lbs) 56.245 kg Weight (Calculated Kilograms) 56.2 Weight (Calculated Grams) 57209.5 [place] Body Weight 118 LB (53.64KG) % [place] Body Weight 105 Body Mass Index (BMI) 22.6 Weight Status Approriate GI Symptoms Last BM NOT NOTED Skin Integrity/Comment: WNL, ROLLY, DRY, INTACT AMINA: 13 Estimated Nutritional Goals BEE in Kcals: Using Current wt Calories/Kcals/Kg 25-30 Kcals Calculated 5703-5600 Protein: Using Current wt Protein g/k.8-0.9 Protein Calculated 45-51 Fluid: ml 9811-8263 ML (25-30 ML/KG) Nutritional Problem 1. Problem Problem INADEQUATE ENERGY INTAKE Etiology R/T GI CONSULT AND G-TUBE REPLACEMENT Signs/Symptoms: AEB NPO STATUS Malnutrition Related to Morbid Obesity Malnutrition related to morbid obesity No Intervention/Recommendation Comments 1. CONTINUE NPO STATUS MEDICALLY APPROPRIATE. 2. ADVANCE G-TUBE FEEDING ONCE MEDICALLY APPROPRIATE. Expected Outcomes/Goals Expected Outcomes/Goals 1. MONITOR NPO STATUS, WT, NUTRITION RELATED LABS AND SKIN INTEGRITY. 2. F/U HIGH RISK IN 2-3 DAYS, 02/26-02/27
[2019-03-05] MEDS: Ferrous Sulfate 300 MG/5 ML UDC PO SCH ×3 (09:20→20:23)
[2019-03-05] MEDS: Pantoprazole 40 mg EC Tab PO SCH ×2 (09:20→17:15)
[2019-03-05] MEDS: Levetiracetam 500 mg/5mL 5mL UDSyr *for ORAL USE ONLY GT SCH ×2 (09:20→20:23)
[2019-03-05] MEDS: Lactobacillus Rhamnosus GG 15 Billion CFU CAP.SPRINK PO SCH (09:20)
[2019-03-06] MEDS: INSULIN LISPRO SLIDING SCALE 100 UNITS/ML UNIT SUBQ SCH ×4 (00:49→17:01)
[2019-03-06 05:19] LABS: % BASOPHILS 0.1 % (0.0-2.0); % EOSINOPHILS 1.2 % (0.0-5.0); % LYMPHOCYTES 12.1 % (20.0-50.0); % MONOCYTES 6.7 % (2.0-10.0); % NEUTROPHILS 79.9 % (40.0-80.0); EOSINOPHILE ABSOLUTE 0.1 Th/cmm (0.1-0.4); HEMATOCRIT 36.8 % (41.0-60); HEMOGLOBIN 12.2 gm/dL (12-16); LYMPHOCYTE ABSOLUTE 1.1 Th/cmm (1.5-3.0); MEAN CELL VOLUME 88.9 fl (80-99); MEAN CORPUSCULAR HEMOGLOBIN 29.6 pg (26.0-30.0); MEAN CORPUSCULAR HGB CONC 33.3 pg (28.0-36.0); MONOCYTE ABSOLUTE 0.6 Th/cmm (0.3-1.0); NEUTROPHILE ABSOLUTE 6.9 Th/cmm (1.8-8.0); PLATELET COUNT 232 Th/cmm (150-400); RED BLOOD COUNT 4.14 Mil/cmm (4.30-5.70); RED CELL DISTRIBUTION WIDTH 12.9 % (11.5-20.0); WHITE BLOOD COUNT 8.7 Th/cmm (4.8-10.8)
[2019-03-06 05:35] LABS: ANION GAP 13.4 (7.0-16.0); BUN - UREA NITROGEN 6 mg/dL (7-25); CALCIUM SERUM 8.3 mg/dL (8.6-10.3); CARBON DIOXIDE 20.9 mEq/L (21.0-31.0); CHLORIDE 109 mEq/L (98-107); CREATININE - SERUM 0.6 mg/dL (0.7-1.3); GFR AFRICAN-AMERICAN > 60.0 ml/min (>90); GFR NON AFRICAN-AMERICAN > 60.0 ml/min; GLUCOSE 112 mg/dL (70-105); MAGNESIUM 1.7 mg/dL (1.9-2.7); POTASSIUM SERUM 3.3 mEq/L (3.5-5.1); SODIUM SERUM 140 mEq/L (136-145)
[2019-03-06] MEDS: Levothyroxine 0.1 Mg Tab GT SCH (06:30)
[2019-03-06] MEDS: Levetiracetam 500 mg/5mL 5mL UDSyr *for ORAL USE ONLY GT SCH ×2 (08:46→20:36)
[2019-03-06] MEDS: Ferrous Sulfate 300 MG/5 ML UDC PO SCH ×3 (08:46→20:36)
[2019-03-06] MEDS: Pantoprazole 40 mg EC Tab PO SCH ×2 (08:47→16:08)
[2019-03-06] MEDS: Lactobacillus Rhamnosus GG 15 Billion CFU CAP.SPRINK PO SCH (08:47)
[2019-03-06] MEDS ORDERED: Mag Sulfate 2gm/50mL Premix 2 GM/50 ML BAG IV ONE (11:28)
[2019-03-06] MEDS ORDERED: Potassium Chloride 20 mEq ER Tab PO ONE (11:28)
--- NOTE | 2019-03-06 11:29 | Internal Medicine Prog Note ---
Internal Medicine Subjective - Subjective Patient seen and examined:: with staff, chart reviewed Patient is:: asleep, non-verbal, non-interactive, eyes closed Per staff patient has:: no adverse event, no episodes of fall Internal Medicine Objective - Results Result Diagrams: 03/06/19 05:00 03/06/19 05:10 Recent Labs: Laboratory Last Values WBC 8.7 Th/cmm (4.8-10.8) 03/06/19 05:00 RBC 4.14 Mil/cmm (4.30-5.70) L 03/06/19 05:00 Hgb 12.2 gm/dL (12-16) 03/06/19 05:00 Hct 36.8 % (41.0-60) L 03/06/19 05:00 MCV 88.9 fl (80-99) 03/06/19 05:00 MCH 29.6 pg (26.0-30.0) 03/06/19 05:00 MCHC Differential 33.3 pg (28.0-36.0) 03/06/19 05:00 RDW 12.9 % (11.5-20.0) 03/06/19 05:00 Plt Count 232 Th/cmm (150-400) 03/06/19 05:00 MPV 8.1 fl 03/06/19 05:00 Add Manual Diff YES 02/28/19 13:00 Neutrophils % 79.9 % (40.0-80.0) 03/06/19 05:00 Band Neutrophils % 0 % (0-10) 02/28/19 13:00 Lymphocytes % 12.1 % (20.0-50.0) L 03/06/19 05:00 Monocytes % 6.7 % (2.0-10.0) 03/06/19 05:00 Eosinophils % 1.2 % (0.0-5.0) 03/06/19 05:00 Basophils % 0.1 % (0.0-2.0) 03/06/19 05:00 Neutrophils (Manual) 93 % (40-80) H 02/28/19 13:00 Lymphocytes 5 % (20-50) L 02/28/19 13:00 Monocytes 2 % (2-10) 02/28/19 13:00 Eosinophils 0 % (0-5) 02/28/19 13:00 Basophils 0 % (0-3) 02/28/19 13:00 Platelet Estimate ADEQUATE (NORMAL) 02/25/19 05:18 PT 13.9 SECONDS (9.5-11.5) H 02/28/19 04:30 INR 1.36 (0.5-1.4) 02/28/19 04:30 Specimen Source Arterial 03/02/19 12:32 Sample Site Left Radial 03/02/19 12:32 pH 7.474 (7.35-7.45) H 03/02/19 12:32 pCO2 30.2 mmHg (35.0-45.0) L 03/02/19 12:32 pO2 73.3 mmHg (80.0-100.0) L 03/02/19 12:32 HCO3 21.7 mEq/L (20.0-26.0) 03/02/19 12:32 Base Excess -0.8 mEq/L (-3.0-3.0) 03/02/19 12:32 O2 Saturation 95.8 % (92.0-100.0) 03/02/19 12:32 Ricky Test YES 03/02/19 12:32 Vent Rate NA 03/02/19 12:32 Inspired O2 40 03/02/19 12:32 Tidal Volume NA 03/02/19 12:32 PEEP 0 03/02/19 12:32 Pressure (ins/psv/peep) 10 03/02/19 12:32 Critical Value [place] 03/02/19 12:32 Sodium 140 mEq/L (136-145) 03/06/19 05:10 Potassium 3.3 mEq/L (3.5-5.1) L 03/06/19 05:10 Chloride 109 mEq/L (98-107) H 03/06/19 05:10 Carbon Dioxide 20.9 mEq/L (21.0-31.0) L 03/06/19 05:10 Anion Gap 13.4 (7.0-16.0) 03/06/19 05:10 BUN 6 mg/dL (7-25) L 03/06/19 05:10 Creatinine 0.6 mg/dL (0.7-1.3) L 03/06/19 05:10 Est GFR ( Amer) > 60.0 ml/min (>90) 03/06/19 05:10 Est GFR (Non-Af Amer) > 60.0 ml/min 03/06/19 05:10 BUN/Creatinine Ratio 10.0 03/06/19 05:10 Glucose 112 mg/dL (70-105) H 03/06/19 05:10 POC Glucose 116 MG/DL (70 - 105) H 03/06/19 11:20 Calcium 8.3 mg/dL (8.6-10.3) L 03/06/19 05:10 Magnesium 1.7 mg/dL (1.9-2.7) L 03/06/19 05:10 Total Bilirubin 0.6 mg/dL (0.3-1.0) 03/03/19 09:15 AST 19 U/L (13-39) 03/03/19 09:15 ALT 8 U/L (7-52) 03/03/19 09:15 Alkaline Phosphatase 61 U/L (34-104) 03/03/19 09:15 Total Protein 5.4 gm/dL (6.0-8.3) L 03/03/19 09:15 Albumin 3.0 gm/dL (4.2-5.5) L 03/03/19 09:15 Globulin 2.4 gm/dL 03/03/19 09:15 Albumin/Globulin Ratio 1.3 (1.0-1.8) 03/03/19 09:15 Amylase 48 U/L (29-103) 02/23/19 13:10 Lipase 19 U/L (11-82) 02/23/19 13:10 TSH 5.42 uIU/ml (0.34-5.60) 02/28/19 04:30 - Physical Exam Vitals and I&O: Vital Signs Temp 98.1 F 03/06/19 04:00 Pulse 96 03/06/19 07:48 Resp 20 03/06/19 07:48 BP 132/85 03/06/19 04:00 Pulse Ox 92 03/06/19 07:48 Intake & Output 03/05/19 03/06/19 03/06/19 18:59 06:59 18:59 Weight (lbs) 63.957 kg Other: # Voids 3 # Bowel Movements 3 Weight Source Bedscale Active Medications: Current Medications Acetaminophen (Tylenol) 650 mg GT Q4HR PRN PRN Reason: mild pain or temp >100 Stop: 04/25/19 09:06 Bisacodyl (Dulcolax 10 Mg Supp) 10 mg RC DAILY PRN PRN Reason: Constipation Stop: 04/25/19 09:06 Dextrose (Glutose 40%) 18.75 gm PO PRN PRN PRN Reason: BS Below 70 & tolerate po Stop: 04/30/19 11:17 Ferrous Sulfate (Iron) 300 mg PO TID REED Stop: 04/25/19 13:59 Last Admin: 03/06/19 08:46 Dose: 300 mg Glucagon (Glucagen) 1 mg IM PRN PRN PRN Reason: BS Below 70&dextrose ineffecti Stop: 04/30/19 11:17 Dextrose/Sodium Chloride (D5-0.9%Ns) 1,000 mls @ 60 mls/hr IV .[id number] REED Stop: 05/03/19 12:29 Last Admin: 03/05/19 04:30 Dose: 60 mls/hr Magnesium Sulfate (Magnesium Sulfate Premix) 2 gm in 50 mls @ 25 mls/hr IV X1 ONE Stop: 03/06/19 13:27 Insulin Human Lispro (Humalog Insulin Sliding Scale) 0 units SUBQ Q6HR REED; Protocol Stop: 04/30/19 11:59 Last Admin: 03/06/19 11:25 Dose: Not Given Lactobacillus Rhamnosus (Culturelle 15b) 1 each PO DAILY REED Stop: 04/27/19 08:59 Last Admin: 03/06/19 08:47 Dose: 1 each Levetiracetam (Keppra) 500 mg GT Q12HR REED Stop: 05/03/19 20:59 Last Admin: 03/06/19 08:46 Dose: 500 mg Levofloxacin (Levaquin) 500 mg PO DAILY REED Stop: 03/09/19 08:59 Last Admin: 03/06/19 08:47 Dose: 500 mg Levothyroxine Sodium (Synthroid) 0.1 mg GT QDAC REED Stop: 04/26/19 07:29 Last Admin: 03/06/19 06:30 Dose: 0.1 mg Lorazepam (Ativan) 1 mg IVP Q8HR PRN; Protocol PRN Reason: Agitation Stop: 04/29/19 13:26 Last Admin: 03/03/19 20:06 Dose: 1 mg Miscellaneous (Probiotic Screen) 1 ea MC PRN PRN PRN Reason: PROTOCOL Stop: 04/26/19 13:07 Pantoprazole Sodium (Protonix) 40 mg PO BID REED Stop: 05/02/19 16:59 Last Admin: 03/06/19 08:47 Dose: 40 mg Potassium Chloride (Klor-Con) 20 meq PO X1 ONE Stop: 03/06/19 11:29 General: demented HEENT: PERRLA Neck: Supple Lungs: CTAB Cardiovascular: RRR, Normal S1, Normal S2 Abdomen: +GT Extremities: excoriation, deformity - Procedures Procedures: Procedures Procedure Code Date CHANGE FEEDING DEVICE IN UP INTEST TRACT, FINAL FINISHER APPROACH [id number] 08/26/16 CHANGE GASTROSTOMY TUBE 37861 08/26/16 INSPECTION OF UPPER INTESTINAL TRACT, ENDO [id number] 02/23/19 Internal Medicine Assmt/Plan - Assessment Assessment: post op repair of gastrostomy tube dysfunction ' gastrostomy tube placement laparotomy closure electrolyte abn - Plan Plan: cont on iv hydration gi and surgery following will correct lytes dw rn start gt feeding Nutritional Asmnt/Malnutr-PDOC - Dietary Evaluation Malnutrition Findings (Please click <Entered> for more info): Nutritional Asmnt/Malnutrition Start: 02/24/19 16: 30 Text: Status: Complete Freq: Protocol: Document 02/24/19 16:31 ANTOINETTE (Rec: 02/24/19 16:34 ANTOINETTE [email or web address]) Nutritional Asmnt/Malnutrition Patient General Information Nutritional Screening High Risk Diagnosis G TUBE MALFUNCTION Pertinent Medical Hx/Surgical Hx GERD, DEMENTIA, PSYCHOSIS, CAD , HTN, HYPOTHYROIDISM, MUSCLE ATROPHY Subjective Information PT IS A 58 YEAR OLD MALE ADMITTED ON 02/23 D/T BROKEN G- TUBE. PEG WAS PULLED OUT BY PY AT [facility]. PT IS WAITING ON A GI CONSULT AND G-TUBE REPLACEMENT. HT: 52 WT: 124 LB (56.36 KG) BMI: 22.68 (NORMAL) GI: WNL, SOFT, LARGE BM: NOT NOTED I/O: NOT NOTED SKIN: WNL, ROLLY, DRY, INTACT AMINA: 13 DIET ORDER: NPO ESTIMATED ENERGY NEEDS: (ADULT , CBW) 4771-1879 KCALS (25-30 KCALS/ KG) 45-51 G PRO (0.8-0.9 G/KG) 2761-8008 ML (25-30 ML/KG) Current Diet Order/ Nutrition Support NPO Pertinent Medications DULCOLAX (PRN), D5-0.9% NS, PEPCID, FERROUS SULFATE, SYNTHROID Pertinent Labs 02/23: NA 132, ALB 4.1 Nutritional Hx/Data Height 1.57 m Height (Calculated Centimeters) 157.5 Current Weight (lbs) 56.245 kg Weight (Calculated Kilograms) 56.2 Weight (Calculated Grams) 31824.5 [place] Body Weight 118 LB (53.64KG) % [place] Body Weight 105 Body Mass Index (BMI) 22.6 Weight Status Approriate GI Symptoms Last BM NOT NOTED Skin Integrity/Comment: WNL, ROLLY, DRY, INTACT AMINA: 13 Estimated Nutritional Goals BEE in Kcals: Using Current wt Calories/Kcals/Kg 25-30 Kcals Calculated 6580-1222 Protein: Using Current wt Protein g/k.8-0.9 Protein Calculated 45-51 Fluid: ml 0327-1670 ML (25-30 ML/KG) Nutritional Problem 1. Problem Problem INADEQUATE ENERGY INTAKE Etiology R/T GI CONSULT AND G-TUBE REPLACEMENT Signs/Symptoms: AEB NPO STATUS Malnutrition Related to Morbid Obesity Malnutrition related to morbid obesity No Intervention/Recommendation Comments 1. CONTINUE NPO STATUS MEDICALLY APPROPRIATE. 2. ADVANCE G-TUBE FEEDING ONCE MEDICALLY APPROPRIATE. Expected Outcomes/Goals Expected Outcomes/Goals 1. MONITOR NPO STATUS, WT, NUTRITION RELATED LABS AND SKIN INTEGRITY. 2. F/U HIGH RISK IN 2-3 DAYS, 02/26-02/27
[2019-03-06] MEDS: D5-0.9%NS 1,000 ML IV SCH (14:39)
[2019-03-07] MEDS: INSULIN LISPRO SLIDING SCALE 100 UNITS/ML UNIT SUBQ SCH ×3 (01:05→12:15)
[2019-03-07] MEDS: Levothyroxine 0.1 Mg Tab GT SCH (08:23)
[2019-03-07] MEDS: Pantoprazole 40 mg EC Tab PO SCH ×2 (08:25→16:29)
[2019-03-07] MEDS: Ferrous Sulfate 300 MG/5 ML UDC PO SCH ×2 (08:26→16:29)
[2019-03-07] MEDS: Lactobacillus Rhamnosus GG 15 Billion CFU CAP.SPRINK PO SCH (08:26)
[2019-03-07] MEDS: Levetiracetam 500 mg/5mL 5mL UDSyr *for ORAL USE ONLY GT SCH (08:29)
[2019-03-07] MEDS: D5-0.9%NS 1,000 ML IV SCH (08:46)
--- NOTE | 2019-03-07 13:10 | Internal Medicine Prog Note ---
Internal Medicine Subjective - Subjective Patient seen and examined:: with staff, chart reviewed Patient is:: asleep, non-verbal, non-interactive, eyes closed Per staff patient has:: no adverse event, no episodes of fall Internal Medicine Objective - Results Result Diagrams: 03/06/19 05:00 03/06/19 05:10 Recent Labs: Laboratory Last Values WBC 8.7 Th/cmm (4.8-10.8) 03/06/19 05:00 RBC 4.14 Mil/cmm (4.30-5.70) L 03/06/19 05:00 Hgb 12.2 gm/dL (12-16) 03/06/19 05:00 Hct 36.8 % (41.0-60) L 03/06/19 05:00 MCV 88.9 fl (80-99) 03/06/19 05:00 MCH 29.6 pg (26.0-30.0) 03/06/19 05:00 MCHC Differential 33.3 pg (28.0-36.0) 03/06/19 05:00 RDW 12.9 % (11.5-20.0) 03/06/19 05:00 Plt Count 232 Th/cmm (150-400) 03/06/19 05:00 MPV 8.1 fl 03/06/19 05:00 Add Manual Diff YES 02/28/19 13:00 Neutrophils % 79.9 % (40.0-80.0) 03/06/19 05:00 Band Neutrophils % 0 % (0-10) 02/28/19 13:00 Lymphocytes % 12.1 % (20.0-50.0) L 03/06/19 05:00 Monocytes % 6.7 % (2.0-10.0) 03/06/19 05:00 Eosinophils % 1.2 % (0.0-5.0) 03/06/19 05:00 Basophils % 0.1 % (0.0-2.0) 03/06/19 05:00 Neutrophils (Manual) 93 % (40-80) H 02/28/19 13:00 Lymphocytes 5 % (20-50) L 02/28/19 13:00 Monocytes 2 % (2-10) 02/28/19 13:00 Eosinophils 0 % (0-5) 02/28/19 13:00 Basophils 0 % (0-3) 02/28/19 13:00 Platelet Estimate ADEQUATE (NORMAL) 02/25/19 05:18 PT 13.9 SECONDS (9.5-11.5) H 02/28/19 04:30 INR 1.36 (0.5-1.4) 02/28/19 04:30 Specimen Source Arterial 03/02/19 12:32 Sample Site Left Radial 03/02/19 12:32 pH 7.474 (7.35-7.45) H 03/02/19 12:32 pCO2 30.2 mmHg (35.0-45.0) L 03/02/19 12:32 pO2 73.3 mmHg (80.0-100.0) L 03/02/19 12:32 HCO3 21.7 mEq/L (20.0-26.0) 03/02/19 12:32 Base Excess -0.8 mEq/L (-3.0-3.0) 03/02/19 12:32 O2 Saturation 95.8 % (92.0-100.0) 03/02/19 12:32 Ricky Test YES 03/02/19 12:32 Vent Rate NA 03/02/19 12:32 Inspired O2 40 03/02/19 12:32 Tidal Volume NA 03/02/19 12:32 PEEP 0 03/02/19 12:32 Pressure (ins/psv/peep) 10 03/02/19 12:32 Critical Value [place] 03/02/19 12:32 Sodium 140 mEq/L (136-145) 03/06/19 05:10 Potassium 3.3 mEq/L (3.5-5.1) L 03/06/19 05:10 Chloride 109 mEq/L (98-107) H 03/06/19 05:10 Carbon Dioxide 20.9 mEq/L (21.0-31.0) L 03/06/19 05:10 Anion Gap 13.4 (7.0-16.0) 03/06/19 05:10 BUN 6 mg/dL (7-25) L 03/06/19 05:10 Creatinine 0.6 mg/dL (0.7-1.3) L 03/06/19 05:10 Est GFR ( Amer) > 60.0 ml/min (>90) 03/06/19 05:10 Est GFR (Non-Af Amer) > 60.0 ml/min 03/06/19 05:10 BUN/Creatinine Ratio 10.0 03/06/19 05:10 Glucose 112 mg/dL (70-105) H 03/06/19 05:10 POC Glucose 103 MG/DL (70 - 105) 03/07/19 12:04 Calcium 8.3 mg/dL (8.6-10.3) L 03/06/19 05:10 Magnesium 1.7 mg/dL (1.9-2.7) L 03/06/19 05:10 Total Bilirubin 0.6 mg/dL (0.3-1.0) 03/03/19 09:15 AST 19 U/L (13-39) 03/03/19 09:15 ALT 8 U/L (7-52) 03/03/19 09:15 Alkaline Phosphatase 61 U/L (34-104) 03/03/19 09:15 Total Protein 5.4 gm/dL (6.0-8.3) L 03/03/19 09:15 Albumin 3.0 gm/dL (4.2-5.5) L 03/03/19 09:15 Globulin 2.4 gm/dL 03/03/19 09:15 Albumin/Globulin Ratio 1.3 (1.0-1.8) 03/03/19 09:15 Amylase 48 U/L (29-103) 02/23/19 13:10 Lipase 19 U/L (11-82) 02/23/19 13:10 TSH 5.42 uIU/ml (0.34-5.60) 02/28/19 04:30 - Physical Exam Vitals and I&O: Vital Signs Temp 98.3 F 03/07/19 04:00 Pulse 102 03/07/19 07:18 Resp 20 03/07/19 07:20 BP 125/82 03/07/19 04:00 Pulse Ox 98 03/07/19 07:18 Intake & Output 03/06/19 03/07/19 03/07/19 18:59 06:59 18:59 Intake Total 1000 Balance 1000 Weight (lbs) 63.957 kg 63.957 kg Intake: Intake, IV Amount 1000 D5-0.9%Ns 1,000 ml @ 60 1000 mls/hr IV .[id number] [facility] Rx #:[id number] Other: # Voids 3 3 # Bowel Movements 1 1 Weight Source Bedscale Bedscale Active Medications: Current Medications Acetaminophen (Tylenol) 650 mg GT Q4HR PRN PRN Reason: mild pain or temp >100 Stop: 04/25/19 09:06 Bisacodyl (Dulcolax 10 Mg Supp) 10 mg RC DAILY PRN PRN Reason: Constipation Stop: 04/25/19 09:06 Dextrose (Glutose 40%) 18.75 gm PO PRN PRN PRN Reason: BS Below 70 & tolerate po Stop: 04/30/19 11:17 Ferrous Sulfate (Iron) 300 mg PO TID [facility] Stop: 04/25/19 13:59 Last Admin: 03/07/19 08:26 Dose: 300 mg Glucagon (Glucagen) 1 mg IM PRN PRN PRN Reason: BS Below 70&dextrose ineffecti Stop: 04/30/19 11:17 Dextrose/Sodium Chloride (D5-0.9%Ns) 1,000 mls @ 60 mls/hr IV .[id number] [facility] Stop: 05/03/19 12:29 Last Admin: 03/07/19 08:46 Dose: 60 mls/hr Insulin Human Lispro (Humalog Insulin Sliding Scale) 0 units SUBQ Q6HR [facility]; Protocol Stop: 04/30/19 11:59 Last Admin: 03/07/19 12:15 Dose: Not Given Lactobacillus Rhamnosus (Culturelle 15b) 1 each PO DAILY [facility] Stop: 04/27/19 08:59 Last Admin: 03/07/19 08:26 Dose: 1 each Levetiracetam (Keppra) 500 mg GT Q12HR [facility] Stop: 05/03/19 20:59 Last Admin: 03/07/19 08:29 Dose: 500 mg Levofloxacin (Levaquin) 500 mg PO DAILY [facility] Stop: 03/09/19 08:59 Last Admin: 03/07/19 08:26 Dose: 500 mg Levothyroxine Sodium (Synthroid) 0.1 mg GT QDAC [facility] Stop: 04/26/19 07:29 Last Admin: 03/07/19 08:23 Dose: 0.1 mg Lorazepam (Ativan) 1 mg IVP Q8HR PRN; Protocol PRN Reason: Agitation Stop: 04/29/19 13:26 Last Admin: 03/06/19 20:37 Dose: 1 mg Miscellaneous (Probiotic Screen) 1 ea MC PRN PRN PRN Reason: PROTOCOL Stop: 04/26/19 13:07 Pantoprazole Sodium (Protonix) 40 mg PO BID REED Stop: 05/02/19 16:59 Last Admin: 03/07/19 08:25 Dose: 40 mg General: demented HEENT: PERRLA Neck: Supple Lungs: CTAB Cardiovascular: RRR, Normal S1, Normal S2 Abdomen: +GT Extremities: excoriation, deformity - Procedures Procedures: Procedures Procedure Code Date CHANGE FEEDING DEVICE IN UP INTEST TRACT, REPAIRER HAIRSPRING APPROACH [id number] 08/26/16 CHANGE GASTROSTOMY TUBE 51495 08/26/16 INSPECTION OF UPPER INTESTINAL TRACT, ENDO [id number] 02/23/19 Internal Medicine Assmt/Plan - Assessment Assessment: post op repair of gastrostomy tube dysfunction ' gastrostomy tube placement laparotomy closure electrolyte abn - Plan Plan: cont on iv hydration gi and surgery following will correct lytes dw rn start gt feeding Nutritional Asmnt/Malnutr-PDOC - Dietary Evaluation Malnutrition Findings (Please click <Entered> for more info): Nutritional Asmnt/Malnutrition Start: 02/24/19 16: 30 Text: Status: Complete Freq: Protocol: Document 02/24/19 16:31 ANTOINETTE (Rec: 02/24/19 16:34 ANTOINETTE [email or web address]) Nutritional Asmnt/Malnutrition Patient General Information Nutritional Screening High Risk Diagnosis G TUBE MALFUNCTION Pertinent Medical Hx/Surgical Hx GERD, DEMENTIA, PSYCHOSIS, CAD , HTN, HYPOTHYROIDISM, MUSCLE ATROPHY Subjective Information PT IS A 58 YEAR OLD MALE ADMITTED ON 02/23 D/T BROKEN G- TUBE. PEG WAS PULLED OUT BY PY AT [facility]. PT IS WAITING ON A GI CONSULT AND G-TUBE REPLACEMENT. HT: 52 WT: 124 LB (56.36 KG) BMI: 22.68 (NORMAL) GI: WNL, SOFT, LARGE BM: NOT NOTED I/O: NOT NOTED SKIN: WNL, ROLLY, DRY, INTACT AMINA: 13 DIET ORDER: NPO ESTIMATED ENERGY NEEDS: (ADULT , CBW) 6103-8285 KCALS (25-30 KCALS/ KG) 45-51 G PRO (0.8-0.9 G/KG) 9869-1394 ML (25-30 ML/KG) Current Diet Order/ Nutrition Support NPO Pertinent Medications DULCOLAX (PRN), D5-0.9% NS, PEPCID, FERROUS SULFATE, SYNTHROID Pertinent Labs 02/23: NA 132, ALB 4.1 Nutritional Hx/Data Height 1.57 m Height (Calculated Centimeters) 157.5 Current Weight (lbs) 56.245 kg Weight (Calculated Kilograms) 56.2 Weight (Calculated Grams) 81039.5 [place] Body Weight 118 LB (53.64KG) % [place] Body Weight 105 Body Mass Index (BMI) 22.6 Weight Status Approriate GI Symptoms Last BM NOT NOTED Skin Integrity/Comment: WNL, ROLLY, DRY, INTACT AMINA: 13 Estimated Nutritional Goals BEE in Kcals: Using Current wt Calories/Kcals/Kg 25-30 Kcals Calculated 1235-9533 Protein: Using Current wt Protein g/k.8-0.9 Protein Calculated 45-51 Fluid: ml 2704-6241 ML (25-30 ML/KG) Nutritional Problem 1. Problem Problem INADEQUATE ENERGY INTAKE Etiology R/T GI CONSULT AND G-TUBE REPLACEMENT Signs/Symptoms: AEB NPO STATUS Malnutrition Related to Morbid Obesity Malnutrition related to morbid obesity No Intervention/Recommendation Comments 1. CONTINUE NPO STATUS MEDICALLY APPROPRIATE. 2. ADVANCE G-TUBE FEEDING ONCE MEDICALLY APPROPRIATE. Expected Outcomes/Goals Expected Outcomes/Goals 1. MONITOR NPO STATUS, WT, NUTRITION RELATED LABS AND SKIN INTEGRITY. 2. F/U HIGH RISK IN 2-3 DAYS, 02/26-02/27
== END 2019-03-07 17:25 | DRG 222 ==
LOC: ER 12:47 → MSI 15:03 → ICU 02-28 13:00 → TELE 03-02 18:37
PROVIDERS: ADMIT General Practice; ATTEND General Practice
PROC: 0DJ08ZZ Inspection of Upper Intestinal Tract, Via Natural or Artificial Opening Endoscopic (ICD-10-PCS; principal; 2019-02-25)
PROC: 0DP60UZ Removal of Feeding Device from Stomach, Open Approach (ICD-10-PCS; 2019-02-28)
PROC: 0DH60UZ Insertion of Feeding Device into Stomach, Open Approach (ICD-10-PCS; 2019-02-28)
PROC: 0WCP0ZZ Extirpation of Matter from Gastrointestinal Tract, Open Approach (ICD-10-PCS; 2019-02-28)
DX: K94.23 Gastrostomy malfunction (principal); T18.2XXA Foreign body in stomach, initial encounter; F03.90 Unspecified dementia, unspecified severity, without behavioral disturbance, psychotic disturbance, mood disturbance, and anxiety; E44.1 Mild protein-calorie malnutrition; E87.1 Hypo-osmolality and hyponatremia; K22.2 Esophageal obstruction; R13.10 Dysphagia, unspecified; E03.9 Hypothyroidism, unspecified; I10 Essential (primary) hypertension; Y83.8 Other surgical procedures as the cause of abnormal reaction of the patient, or of later complication, without mention of misadventure at the time of the procedure; I25.10 Atherosclerotic heart disease of native coronary artery without angina pectoris; K21.9 Gastro-esophageal reflux disease without esophagitis; K20.9 Esophagitis, unspecified; Z87.11 Personal history of peptic ulcer disease; Z82.49 Family history of ischemic heart disease and other diseases of the circulatory system; Z68.25 Body mass index [BMI] 25.0-25.9, adult
CPT/HCPCS: 36415-UA; 36600-90; 71045-TC; 71250-TC; 74000-TC; 80048-TC; 80053-TC; 82150-TC; 82803-TC; 82948-90; 83690-TC; 83735-TC; 84443-TC; 85007-TC; 85014-TC; 85018-TC; 85025-TC; 85610-TC; 94002; 94003; 94760; 96372; 99201; A4217; C9113; J0690; J1100; J2001; J2060; J2405; J2704; J2710; J3010; J3475; J3480; J7030; J7042; X6024; X6258; X7704; Z7610